=== PATIENT | male | born 1945 | race Caucasian/White ===

== ENCOUNTER 2018-06-15 10:15 | Observation (INO) ==
[2018-06-15 10:49] LABS: Basophils # (auto) 0.02 K/uL (0-0.2); Basophils % (auto) 0.2 %; Eosinophils # (auto) 0.16 K/uL (0-0.5); Eosinophils % (auto) 1.6 %; Hemoglobin 15.2 g/dL (14.0-18.0); Immature Granulocytes # (auto) 0.06 K/uL (0.00-0.02); Immature Granulocytes % (auto) 0.6 %; Lymphocytes # (auto) 1.26 K/uL (1.2-3.4); Lymphocytes % (auto) 12.3 %; Mean Corpuscular Hgb Conc 33.8 g/dL (32-36); Mean Corpuscular Volume 93.9 fL (80-100); Mean Platelet Volume 10.3 fL (7.4-10.4); Monocytes # (auto) 0.85 K/uL (0.11-0.59); Monocytes % (auto) 8.3 %; Neutrophils # (auto) 7.91 K/uL (1.4-6.5); Platelet Count 196 K/uL (130-400); RDW Standard Deviation 51.8 fL (36.4-46.3); Red Blood Count 4.79 M/uL (4.7-6.1); White Blood Count 10.26 K/uL (4.8-10.8)
[2018-06-15 10:56] LABS: Alanine Aminotransferase 22 U/L (12-78); Albumin Level 3.7 gm/dl (3.4-5.0); Aspartate Aminotransferase 14 U/L (15-37); BUN Creatinine Ratio 15.6 (10-20); Blood Urea Nitrogen 16 mg/dl (7-18); Calcium 8.9 mg/dl (8.5-10.1); Carbon Dioxide 30 mmol/L (21-32); Chloride 103 mmol/L (98-107); Creatinine Clr Calc Pharmacy 81.4 ml/min; Est GFR (African American) 87.4; Est GFR (Non-African American) 75.4; Glucose 91 mg/dl (70-99); Potassium 3.8 mmol/L (3.5-5.1); Sodium 140 mmol/L (136-145)
[2018-06-15 11:01] LABS: Alkaline Phosphatase 90 U/L (45-117); Bilirubin,Total 0.9 mg/dl (0.2-1); Globulin 3.8 gm/dl (2.5-4.0); Total Protein 7.5 gm/dl (6.4-8.2); Troponin I < 0.015 ng/ml (0-0.045)
--- NOTE | 2018-06-15 12:07 | XRay Report ---
SINGLE VIEW CHEST CLINICAL HISTORY: Atypical chest pain. FINDINGS: An AP, portable, upright chest radiograph is compared to study dated 06/08/2012. The examinat ion is degraded by portable technique and patient rotation. The heart is top normal for projection, noting atherosclerotic calcification of the thoracic aorta. There is pulmonary vascular congestion. B ibasilar airspace opacities likely represent atelectasis. Trace pleural effusions are suspected. A hi atal hernia is noted. No pneumothorax is seen. The skeletal structures are osteopenic. The bony thora x is grossly intact. Degenerative change is noted throughout the thoracic spine. IMPRESSION: 1. There is evidence of mild congestive failure. 2. Trace pleural effusions are suspected. 3. Bibasilar airspace opacities likely represent atelectasis. Clinical correlation will be required. Electronically signed by: Salvador Whittaker M.D. 06/15/2018 12:05 PM
--- NOTE | 2018-06-15 12:18 | History & Physical Report ---
Date of Service June 15, 2018 Assessment & Plan (1) RBBB: (2) Chest pain, precordial: - Admit to tele for observation for r/o - Trend cardiac biomarkers, initial set was negative - EKG reviewed as above with new RBBB, repeat ekg with - Check 2 D echo - If negative enzymes can consider a stress test tomorrow morning. - PT/OT consulted (3) HLD (hyperlipidemia): -Taking pravastatin Q48H, will be due to take this tonight - checking lipid panel with [facility]. Await results to determine if needs to daily dosing of statin needed. (4) Obesity (BMI 30.0-34.9): - Diet and exercise to be encouraged. Pt reports no routine exercise regimen. (5) Hiatal hernia: - Hx of such, previously was on protonix for this but hasn't taken for over 1 year. Chest pain could be partially GI related, consider GI cocktail. (6) History of tobacco use: - Remote hx of such (7) Prostate cancer: - Stable (8) DVT prophylaxis: Lovenox subq History of Present Illness Chief Complaint: Chest pain Primary Care Provider: Shiva He MD This is a 72 yo M with PMHx of HLD, thoracic back pain and neuropathy, seasonal allergies, remote smoking history who presents with acute onset of chest pain. Patient notes that a sharp stabbing substernal chest pain awoke him at 3 AM last night. He reports that there was no associated shortness of breath, lightheadedness, dizziness, palpitations. He routinely has referred thoracic back pain around T6 which she has followed with pain management as an outpat ient, and states that the chest pain seemed to go back to this location however due to its abrupt nature, sought out care from PCP, Dr. He, who sent the patient to the ER for further evaluation. Patient has never experienced chest pain like this before. He was able to perform perform normal ADLs yesterday. Patient denies any physical activity which may have exacerbated a musculoskeletal strain. He does not routinely exercise. The patient is able to climb a flight of stairs without any exertional dyspnea or angina. EKG shows new RBBB. Troponin is negative, VSS. CXR is negative. Allergies Allergy/AdvReac Type Severity Reaction Status Date / Time No Known Allergies Allergy Unknown Verified 06/15/18 11:35 Home Medications Home Medications Medication Instructions Recorded Confirmed Type albuterol sulfate 2 puff INHALATION Q4H PRN 06/15/18 06/15/18 History aspirin [Aspirin Low Dose] 81 mg PO Q48H 06/15/18 06/15/18 History cholecalciferol (vitamin D3) 1,000 unit PO DAILY 06/15/18 06/15/18 History gabapentin 400 mg PO TID 06/15/18 06/15/18 History loratadine 10 mg PO DAILY 06/15/18 06/15/18 History naproxen sodium 220 mg PO Q8H PRN 06/15/18 06/15/18 History pravastatin 10 mg PO Q48H 06/15/18 06/15/18 History Past Med/Surg History Medical History RBBB Prostate cancer History of tobacco use Hiatal hernia Obesity (BMI 30.0-34.9) HLD (hyperlipidemia) Chest pain, precordial (Acute) High cholesterol Surgical History S/P appendectomy Social History Preferred Language: [place] Communication Ability: Effective 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 Abdomen: No pain, nausea, vomiting, diarrhea or constipation Musculoskeletal: No joint pain, calf pain, swelling Neurologic: No weakness, numbness/tingling, or balance problems Psychiatric: No anxiety or depression Skin: No rash or itch Physical Exam Vital Signs (Past 24 Hours): Last Vital Signs Temp 36.5 C 06/15/18 10:21 Pulse 57 L 06/15/18 12:07 Resp 18 06/15/18 12:07 BP 131/75 06/15/18 12:07 Pulse Ox 97 06/15/18 12:07 Physical Exam: General: awake, alert, no apparent distress, + obese Head: Normocephalic, atraumatic ENT: PERRL, EOMI, no pharyngeal exudate, mucous membranes moist Chest: Nontender to palpation, clear to auscultation, on room air, no adventitious breath sounds Cardiac: Regular rhythm HR in mid 50s, few PVCs on exam, soft murmur, no JVD, normal peripheral pulses, good capillary refill Abdominal: NABS x 4 quadrants, soft, mildly distended, nontender to palpation, no rebound, guarding or tenderness Extremities: Normal inspection, no peripheral edema or erythema, calfs nontender to palpation Psych: Normal mood and affect Neuro: AAO x 3, strength intact bilaterally and related 5/5, no motor deficits, speech is clear, no peripheral sensory deficits Constitutional: WD/WN, vitals as above Eyes: normal visual wolf by confrontation and + anicteric sclerae Neck: normal visual inspection and trachea midline Respiratory: normal respiratory effort, lungs clear to auscultation Cardiovascular: Rate/Rhythm: regular rate and regular rhythm Gastrointestinal (Abdomen): Inspection/Auscultation: abdomen not distended Percussion/Palpation: abdomen soft; abdomen nontender Musculoskeletal: Head/Neck/Chest: normocephalic, head atraumatic and + abnormal palpation of chest wall (pain is reproducible on the R, just lateral to the sternum c/w area of pain) Neg for peripheral LE edema, + pedal pulses Skin: no rashes, warm and dry Neurologic: awake; not confused Speech / Cognition: normal speech Psychiatric: A+Ox3, euthymic affect Lymphatic: Exam as done by Sidra Larson DO Results & Data Diagnostic Findings SINGLE VIEW CHEST CLINICAL HISTORY: Atypical chest pain. FINDINGS: An AP, portable, upright chest radiograph is compared to study dated 06/08/2012. The examination is degraded by portable technique and patient rotation. The heart is top normal for projection, noting atherosclerotic calcification of the thoracic aorta. There is pulmonary vascular congestion. Bibasilar airspace opacities likely represent atelectasis. Trace pleural effusions are suspected. A hiatal hernia is noted. No pneumothorax is seen. The skeletal structures are osteopenic. The bony thorax is grossly intact. Degenerative change is noted throughout the thoracic spine. IMPRESSION: 1. There is evidence of mild congestive failure. 2. Trace pleural effusions are suspected. 3. Bibasilar airspace opacities likely represent atelectasis. Clinical correlation will be required. ECG Additional Comments: 15-JUN-2018 10:19:46 [facility] Normal sinus rhythm Right bundle branch block Left anterior fascicular block Bifascicular block Abnormal ECG When compared with ECG of 05-JUL-2008 13:23, (RBBB and left anterior fascicular block) is now Present Vent. rate 63 BPM IL interval 136 ms QRS duration 138 ms QT/QTc 446/456 ms P-R-T axes 68 -52 15 Supervising Physician Co-Signing Physician Notes Pt seen and examined by me. Denies recurrence of chest pain or SOB. Tolerating PO without issue. Agree with HPI/ROS as noted by PA See above for my exam in PE section Agree with plan as outlined above Chest pain, reproducible to palpation Pt also notes h/o hiatal hernia ECHO, trops New RBBB noted on EKG as part of workup
[2018-06-15] MEDS ORDERED: ACETAMINOPHEN 325 MG TAB PO PRN (13:43)
[2018-06-15] MEDS ORDERED: ALBUTEROL HFA 8 GM INHALER INH PRN (13:43)
[2018-06-15] MEDS ORDERED: ONDANSETRON INJ 2 MG/ML 2 ML VIAL IV PRN (13:43)
[2018-06-15] MEDS: GABAPENTIN 400 MG CAP PO SCH ×2 (15:59→21:20)
--- NOTE | 2018-06-15 16:15 | Emergency Department Note ---
Entered by Jeffery Anguiano acting as a scribe for Geovanny Eng DO History of Present Illness General Chief complaint: Chest Pain Stated complaint: chest pain Time Seen by Provider: 06/15/18 10:34 Source: patient History of Present Illness Provider complaint: chest pain Onset (ago): day(s) (today around 0300) Location: chest (middle) Radiation: non-radiation Pain Consistency: + now resolved Maximum Pain Intensity: 10 Current Pain Intensity: 2 Quality: + sharp and + other (feels like there is a "ball" in his chest) Relieved By: + medication (nitroglycerin and baby aspirin) Associated symptoms: + denies other symptoms (jaw pain, arm pain, urinary symptoms, abdominal pain); no diaphoresis, no nausea/vomiting and no shortness of breath Treatments prior to arrival: aspirin and other (nitroglycerin) The patient is a 72 year old male who presents to the Emergency Room with complaints of chest pain that woke the patient up around 0300 this morning. The patient states his pain is sharp in the middle of his chest and rates it as a 2/10 in severity. He also states that it feels as though there is a "ball" in hi s chest. He denies that the pain radiated anywhere and denies any arm pain, jaw pain, or shortness of breath. The patient reports that he was given nitroglycerin as well as 4 baby aspirin which alleviated his pain. He denies ever experiencing pain like this before. The patient also denies any abdominal pain, nausea, vomiting, urinary symptoms or diaphoresis. He denies any medical history of heart attacks, diabetes, or hypertension, but does admit to having high cholesterol. The patient admits to being a former smoker of 15 years and states that he quit about 4 years ago. Home Medications Home Medications Medication Instructions Recorded Confirmed Type albuterol sulfate 2 puff INHALATION Q4H PRN 06/15/18 06/15/18 History aspirin [Aspirin Low Dose] 81 mg PO Q48H 06/15/18 06/15/18 History cholecalciferol (vitamin D3) 1,000 unit PO DAILY 06/15/18 06/15/18 History gabapentin 400 mg PO TID 06/15/18 06/15/18 History loratadine 10 mg PO DAILY 06/15/18 06/15/18 History naproxen sodium 220 mg PO Q8H PRN 06/15/18 06/15/18 History pravastatin 10 mg PO Q48H 06/15/18 06/15/18 History Allergies Allergy/AdvReac Type Severity Reaction Status Date / Time No Known Allergies Allergy Unknown Verified 06/15/18 11:35 Past Med/Surg History Medical History RBBB Prostate cancer History of tobacco use Hiatal hernia Obesity (BMI 30.0-34.9) HLD (hyperlipidemia) Chest pain, precordial (Acute) High cholesterol Surgical History S/P appendectomy Social History Preferred Language: Malian Communication Ability: Effective 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 and A total of 10 systems reviewed and were otherwise negative Physical Exam Vital Signs Vital Signs - 24 hr 06/15/18 10:21 06/15/18 10:27 06/15/18 12:07 Temperature 36.5 C Temperature Source Oral Sepsis Recent Fever Within 48 Hours No Sepsis New/Unexplained Change in Mental Status No Sepsis Action Taken by Nursing No Action Required Pulse Rate 65 Pulse Rate [Apical] 57 L Pulse Rate [Left Finger] Respiratory Rate 20 18 Respiratory Effort / Characteristics Non-Labored Spontaneous Respiratory Depth Normal Respiratory Pattern Regular Blood Pressure 157/91 H Blood Pressure [Left Arm] Blood Pressure [Right Arm] 131/75 Blood Pressure Mean 113 Blood Pressure Mean [Left Arm] Blood Pressure Mean [Right Arm] 93 Blood Pressure Position [Left Arm] Blood Pressure Position [Right Arm] Sitting Pulse Oximetry 96 96 97 Oxygen Delivery Method Room Air Room Air Room Air 06/15/18 13:02 06/15/18 13:43 06/15/18 15:49 Temperature 36.6 C 36.6 C Temperature Source Oral Oral Sepsis Recent Fever Within 48 Hours Sepsis New/Unexplained Change in Mental Status Sepsis Action Taken by Nursing Pulse Rate 55 L Pulse Rate [Apical] Pulse Rate [Left Finger] 57 L 62 Respiratory Rate 18 16 20 Respiratory Effort / Characteristics Non-Labored Spontaneous Respiratory Depth Normal Respiratory Pattern Regular Blood Pressure 134/78 Blood Pressure [Left Arm] 169/83 H 147/54 H Blood Pressure [Right Arm] Blood Pressure Mean Blood Pressure Mean [Left Arm] 111 85 Blood Pressure Mean [Right Arm] Blood Pressure Position [Left Arm] Sitting Lying Blood Pressure Position [Right Arm] Pulse Oximetry 98 95 97 Oxygen Delivery Method Room Air Room Air Room Air GENERAL: Sleeping in bed, alert, well appearing, well nourished, no distress, non-toxic EYE EXAM: normal conjunctiva. PERRL and EOM's grossly intact. OROPHARYNX: no exudate, no erythema, lips, buccal mucosa, and tongue normal and mucous membranes are moist NECK: supple, no nuchal rigidity, no adenopathy, non-tender LUNGS: Clear to auscultation. Normal chest wall mechanics HEART: no murmurs, S1 normal and S2 normal ABDOMEN: abdomen soft, non-tender, normo-active bowel, sounds, no masses, no rebound or guarding. BACK: Back is symmetrical on inspection and there is no deformity, no midline tenderness, no CVA tenderness. SKIN: no rashes and no bruising UPPER EXTREMITIES: Upper extremities are grossly normal. Upper radial pulses equal bilaterally. LOWER EXTREMITIES: No pitting edema. Calves equal bilaterally. NEURO EXAM: Normal sensorium, cranial nerves II-XII grossly intact, normal speech, no gross weakness of arms, no gross weakness of legs. Course ED COURSE: Vital signs were reviewed and showed the patient was hypertensive. The patients medical record was reviewed The above diagnostic studies were performed and reviewed. ED treatments and interventions as stated above. 1039: The patient was evaluated in room C12B. A complete history and physical examination was performed. 1212: I reviewed the patient's case with Dr. Larson, [facility]. She will evaluate the patient for further management. 1216: Upon reevaluation, the patient is resting comfortably. I discussed my findings with the patient and he understands and agrees with the treatment plan. Based on the patients age, coexisting illnesses, exam and lab findings the decision to treat as an inpatient was made. The patient remained stable while under my care. The patient will be evaluated for further management. Consultations Consultation #1: Dr. Larson [facility] Time: 12:12 Administered Medications Gabapentin (Neurontin) 400 mg PO TID JOVANNA Stop: 07/15/18 13:59 Last Admin: 06/15/18 15:59 Dose: 400 mg Documented by: [id number] Medical Decision Making Differential Diagnosis Differential diagnosis: Etiologies such as cardiac ischemia, aortic dissection, pulmonary embolism, pneumonia, pneumothorax, musculoskeletal, infections, pericarditis, myocarditis, esophageal rupture, gastrointestinal, as well as others were entertained. Medical Records Attestation: I reviewed the patient's medical records. Home Medications Current Medication List: was personally reviewed by me Laboratory Data Attestation: I reviewed the patient's lab results. Result diagrams: 06/15/18 10:25 06/15/18 10:25 Lab Results 06/15/18 06/15/18 Range/Units 10:25 10:25 WBC 10.26 (4.8-10.8) K/uL RBC 4.79 (4.7-6.1) M/uL Hgb 15.2 (14.0-18.0) g/dL Hct 45.0 (42-52) % MCV 93.9 (80-100) fL MCH 31.7 (25-34) pg MCHC 33.8 (32-36) g/dL RDW Std Deviation 51.8 H (36.4-46.3) fL RDW Coeff of Swetha 15.0 H (11.5-14.5) % Plt Count 196 (130-400) K/uL MPV 10.3 (7.4-10.4) fL Immature Gran % (Auto) 0.6 % Neut % (Auto) 77.0 % Lymph % (Auto) 12.3 % Marion % (Auto) 8.3 % Eos % (Auto) 1.6 % Baso % (Auto) 0.2 % Immature Gran # (Auto) 0.06 H (0.00-0.02) K/uL Neut # (Auto) 7.91 H (1.4-6.5) K/uL Lymph # (Auto) 1.26 (1.2-3.4) K/uL Marion # (Auto) 0.85 H (0.11-0.59) K/uL Eos # (Auto) 0.16 (0-0.5) K/uL Baso # (Auto) 0.02 (0-0.2) K/uL Sodium 140 (136-145) mmol/L Potassium 3.8 (3.5-5.1) mmol/L Chloride 103 (98-107) mmol/L Carbon Dioxide 30 (21-32) mmol/L Anion Gap 7.0 (3-11) BUN 16 (7-18) mg/dl Creatinine 1.00 (0.6-1.4) mg/dl Est Cr Clr Drug Dosing 81.4 ml/min Est GFR ( Amer) 87.4 Est GFR (Non-Af Amer) 75.4 BUN/Creatinine Ratio 15.6 (10-20) Glucose 91 (70-99) mg/dl Calcium 8.9 (8.5-10.1) mg/dl Total Bilirubin 0.9 (0.2-1) mg/dl AST 14 L (15-37) U/L ALT 22 (12-78) U/L Alkaline Phosphatase 90 (45-117) U/L Troponin I < 0.015 (0-0.045) ng/ml Total Protein 7.5 (6.4-8.2) gm/dl Albumin 3.7 (3.4-5.0) gm/dl Globulin 3.8 (2.5-4.0) gm/dl Albumin/Globulin Ratio 1.0 (0.9-2) Lipase 237 (73-393) U/L Imaging Data Radiologist's Impression: Radiology results as stated below per my review and the radiologist's interpretation: SINGLE VIEW CHEST CLINICAL HISTORY: Atypical chest pain. FINDINGS: An AP, portable, upright chest radiograph is compared to study dated 06/08/2012. The examination is degraded by portable technique and patient rotation. The heart is top normal for projection, noting atherosclerotic calcification of the thoracic aorta. There is pulmonary vascular congestion. Bibasilar airspace opacities likely represent atelectasis. Trace pleural effu sions are suspected. A hiatal hernia is noted. No pneumothorax is seen. The skeletal structures are osteopenic. The bony thorax is grossly intact. Degenerative change is noted throughout the thoracic spine. IMPRESSION: 1. There is evidence of mild congestive failure. 2. Trace pleural effusions are suspected. 3. Bibasilar airspace opacities likely represent atelectasis. Clinical correlation will be required. Electronically signed by: Salvador Whittaker M.D. 06/15/2018 12:05 PM ECG Data Attestation: I personally reviewed and interpreted this ECG as follows: Indication: chest pain Rate (beats per minute): 63 Rhythm: sinus rhythm Findings: + other (TWI in v1), + RBBB and + left axis deviation Comparison ECG Date: from (06/25/08) Change: the following changes noted (RBBB is new) Blood Pressure Blood Pressure Findings: Elevated blood pressure Blood Pressure Disposition: elevated BP felt to be situational MDM Narrative Patient is a 72-year-old male who presents the ER for chest pain which is located in the midsternal region. Chest pain started at 3 AM. It resolved with nitro and aspirin given in the ambulance. Patient has no other complaints at this time. Labs were obtained and showed no significant leukocytosis or anemia. Labs show no significant leukocytosis or anemia. BMP along with LFTs bilirubin and lipase was unremarkable. Troponin was normal. EKG showed no acute ischemia. He was updated bedside. Chest x-ray unremarkable. Previously received aspirin nitro. With his age and risk factors I discussed case with the hospitalist for observation. Impression & Plan Chest pain, precordial Discharge Plan Visit Data *Final* Discharge Date/Time: 06/15/18 13:02 Chief Complaint: Chest Pain Stated Complaint: chest pain ED Provider: Geovanny Eng Discharge Problem: Chest pain, precordial Patient Disposition: Admitted As Inpatient Discharge Instructions Interventions: ED Discharge Assessment Last Done: 06/15/18 13:02 The scribe's documentation has been prepared under my direction and personally reviewed by me in its entirety. I confirm that the note above accurately reflects all work, treatment, procedures, and medical decision making performed by me.
[2018-06-15] MEDS ORDERED: ASPIRIN 81 MG ECTAB PO SCH (21:00)
[2018-06-15] MEDS ORDERED: PRAVASTATIN SOD 10 MG TAB PO SCH (21:00)
[2018-06-16 02:19] LABS: Alanine Aminotransferase 19 U/L (12-78); Albumin Level 3.2 gm/dl (3.4-5.0); Aspartate Aminotransferase 9 U/L (15-37); BUN Creatinine Ratio 18.3 (10-20); Blood Urea Nitrogen 17 mg/dl (7-18); Calcium 8.2 mg/dl (8.5-10.1); Carbon Dioxide 28 mmol/L (21-32); Chloride 104 mmol/L (98-107); Creatinine Clr Calc Pharmacy 85.7 ml/min; Est GFR (Non-African American) 80.2; Glucose 105 mg/dl (70-99); Magnesium 2.1 mg/dl (1.8-2.4); Potassium 3.9 mmol/L (3.5-5.1); Sodium 138 mmol/L (136-145)
[2018-06-16 02:22] LABS: Albumin Globulin Ratio 0.9 (0.9-2); Alkaline Phosphatase 90 U/L (45-117); Bilirubin,Total 0.9 mg/dl (0.2-1); Chol HDL Ratio 4; Cholesterol 200 mg/dl (0-200); Globulin 3.7 gm/dl (2.5-4.0); HDL Cholesterol 54 mg/dl; Total Protein 6.9 gm/dl (6.4-8.2); Triglycerides 406 mg/dl (0-150); Troponin I < 0.015 ng/ml (0-0.045)
[2018-06-16 06:42] LABS: Prothrombin Time 10.6 Seconds (9.0-12.0)
[2018-06-16 06:53] LABS: Hemoglobin 15.2 g/dL (14.0-18.0); Mean Corpuscular Hgb Conc 33.8 g/dL (32-36); Mean Corpuscular Volume 93.6 fL (80-100); Mean Platelet Volume 10.6 fL (7.4-10.4); Platelet Count 179 K/uL (130-400); RDW Coefficient of Variation 14.9 % (11.5-14.5); RDW Standard Deviation 51.1 fL (36.4-46.3); Red Blood Count 4.81 M/uL (4.7-6.1); White Blood Count 6.84 K/uL (4.8-10.8)
[2018-06-16 07:28] LABS: Estimated Average Glucose 126 mg/dl
[2018-06-16] MEDS: GABAPENTIN 400 MG CAP PO SCH ×2 (08:36→13:42)
[2018-06-16] MEDS ORDERED: ENOXAPARIN INJ 40 MG/0.4 ML SYR SQ SCH (09:00)
[2018-06-16] MEDS ORDERED: CHOLECALCIFEROL 1,000 UNITS TAB PO SCH (09:00)
[2018-06-16] MEDS ORDERED: PERFLUTREN LIPID MICROSPHERE (DEFINITY) IV ONE (10:58)
--- NOTE | 2018-06-16 11:30 | Discharge Summary ---
Date of Service June 16, 2018 Admission HPI Per Admitting Provider This is a 72 yo M with PMHx of HLD, thoracic back pain and neuropathy, seasonal allergies, remote smoking history who presents with acute onset of chest pain. Patient notes that a sharp stabbing substernal chest pain awoke him at 3 AM last night. He reports that there was no associated shortness of breath, lightheadedness, dizziness, palpitations. He routinely has referred thoracic back pain around T6 which she has followed with pain management as an outpatient, and states that the chest pain seemed to go back to this location however due to its abrupt nature, sought out care from PCP, Dr. He, who sent the patient to the ER for further evaluation. Patient has never experienced chest pain like this before. He was able to perform perform normal ADLs yesterday. Patient denies any physical activity which may have exacerbated a musculoskeletal strain. He does not routinely exercise. The patient is able to climb a flight of stairs without any exertional dyspnea or angina. EKG shows new RBBB. Troponin is negative, VSS. CXR is negative. Admission Exam Per Admitting Provider Physical Exam: General: awake, alert, no apparent distress, + obese Head: Normocephalic, atraumatic ENT: PERRL, EOMI, no pharyngeal exudate, mucous membranes moist Chest: Nontender to palpation, clear to auscultation, on room air, no adventitio us breath sounds Cardiac: Regular rhythm HR in mid 50s, few PVCs on exam, soft murmur, no JVD, normal peripheral pulses, good capillary refill Abdominal: NABS x 4 quadrants, soft, mildly distended, nontender to palpation, no rebound, guarding or tenderness Extremities: Normal inspection, no peripheral edema or erythema, calfs nontender to palpation Psych: Normal mood and affect Neuro: AAO x 3, strength intact bilaterally and related 5/5, no motor deficits, speech is clear, no peripheral sensory deficits Principal Diagnosis Chest Pain Discharge Exam Constitutional WD/WN, vitals as above Eyes PERRL, conjunctivae normal, anicteric sclerae ENMT external ear and nose normal, oropharynx normal Neck trachea midline, no thyromegaly Respiratory normal respiratory effort, lungs clear to auscultation Cardiovascular RRR, no murmur, no edema Gastrointestinal (Abdomen) normal bowel sounds, soft, nontender, no hepatosplenomegaly Musculoskeletal no cyanosis or clubbing, extremities motor strength 5/5 Skin no rashes, warm and dry Psychiatric A+Ox3, euthymic affect Discharge Data Allergies Allergy/AdvReac Type Severity Reaction Status Date / Time No Known Allergies Allergy Unknown Verified 06/15/18 11:35 Consultations 06/15/18 12:15 ED Decision to Admit Stat 06/15/18 13:43 Consult Case Management - Discharge Planning Routine Echocardiogram interpretation summary Normal LV size and wall thickness LVEF 60-65%, no regional wall motion abnormalities Normal RV size and function Mild mitral regurgitation No previous studies for comparison [place], [place] [phone] XRay Report Patient: ROSSY HIGGINS Date: 06/15/18 MR#: [id number]: [id number] Acct ID:[id number]: [address] Date: 1945[facility] Zip: [place] [address] Age: 72Location: ED Sex: M Room/Bed: Att Phy: Diagnosis: chest pain Joanne Phy: Shiva He M.D.Service Date: 06/15/18 Fam Phy: Interpreting Phy: Salvador Whittaker MD Admit Phy: Ordering Phy: Geovanny Eng, cc: ~ SINGLE VIEW CHEST CLINICAL HISTORY: Atypical chest pain. FINDINGS: An AP, portable, upright chest radiograph is compared to study dated 06/08/2012. The examination is degraded by portable technique and patient rotation. The heart is top normal for projection, noting atherosclerotic calcification of the thoracic aorta. There is pulmonary vascular congestion. Bibasilar airspace opacities likely represent atelectasis. Trace pleural effusions are suspected. A hiatal hernia is noted. No pneumothorax is seen. The skeletal structures are osteopenic. The bony thorax is grossly intact. Degenerative change is noted throughout the thoracic spine. IMPRESSION: 1. There is evidence of mild congestive failure. 2. Trace pleural effusions are suspected. 3. Bibasilar airspace opacities likely represent atelectasis. Clinical correlation will be required. Electronically signed by: Salvador Whittaker M.D. 06/15/2018 12:05 PM Dictated: 06/15/18 1204 Transcribed: 06/15/18 1204 Hospital Course (1) Chest pain, precordial: 72-year-old male with a past medical history of hyperlipidemia, impaired glucose tolerance, remote history of tobacco use and family history of NM in his father and diabetes in his mother presents with chest pain. The patient stated that the chest pain began 3 AM on 06/15/2018. He was seen by his PCP in the morning of 06/15/2018 at 8 AM and was subsequently transferred to [facility]. The pain was constant throughout the morning. He states that the chest pain was relieved following aspirin nitro in route to the hospital. Chest pain The patient was evaluated on telemetry bed without any events on monitor. The patient was found to have a right bundle branch block on EKG. He had negative cardiac biomarkerstroponins were negative x3. We did have an echocardiogram which was normal. See interpretation above. Considering the patient's risk factors, further ischemic workup was initiated. The patient went for a exercise stress echo which was negative for ischemia. Consider non-cardiac origins of chest pain. Hypertriglyceridemia Triglycerides were found to be 406, the patient is currently on 10 mg of pravastatin, would recommend increasing the dose or consider adjunctive therapy Total Time Total Time Spent Total Time Spent (In Minutes): Greater than 30 minutes Total Time Includes: Examination of the Patient, Discharge Planning, Medication Reconciliation and Communication With Other Providers Discharge Plan Discharge Items Patient Disposition: Home - Self-Care Reason For Visit: chest pain Discharge Diagnosis: Chest Pain of Unknown Origin Condition: Good Discharge Goals: Increase independence and Prevent disease Activity: Resume your previous activity Non-emergency contact: Primary Care Provider Call non-emergency contact if: you have any medication questions Follow-up/Referrals: Shiva He MD [Primary Care Provider] - 06/18/18 10:50 am (Please, follow up at Dr. He' office with his associate, Dr. Kimberly Ha, on June 18 at 10:50 am. *If you need to change this appointment, call their office at [phone].) Diet: Heart Healthy Addtl Provider Instructions: You were admitted to the hospital for a concern about chest pain coming from a heart attack. Blood work was negative for any cardiac enzymes that would indicate a heart attack. Your resting and stress echocardiogram also did not show any abnormalities. An abnormality in the echocardiogram could be evidence of cardiac disease. Your EKG did show what is called a Right Bundle Branch Block which was a change in your EKG when compared from 2009. A Right Bundle Branch Block occurs in approximately 0.2 to 0.8 percent of the general population and is more prevalent with age. It is unclear when this Right Bundle Branch block occurred. A asymptomatic Right bundle branch block does not require treatment other than observation for further cardiac symptoms. A follow up appointment with Dr. Kimberly Ha has been made for you on 06/18/[address] He precepting, please keep this appointment. Prescriptions: Continued gabapentin 400 mg Capsule 400 mg PO TID RF: 0 aspirin [Aspirin Low Dose] 81 mg Tablet,Delayed Release (Dr/Ec) 81 mg PO Q48H RF: 0 pravastatin 10 mg Tablet 10 mg PO Q48H RF: 0 naproxen sodium 220 mg Tablet 220 mg PO Q8H PRN (Reason: ARTHRITIS PAIN) RF: 0 albuterol sulfate 90 mcg/actuation Hfa Aerosol Inhaler 2 puff INHALATION Q4H PRN (Reason: Wheezing) RF: 0 loratadine 10 mg Tablet 10 mg PO DAILY RF: 0 cholecalciferol (vitamin D3) 1,000 unit Capsule 1,000 unit PO DAILY RF: 0 Stand-Alone Forms: Call Back Authorization, [facility]/Other Patient Handouts: Prediabetes, Diabetes Meal Planning, Block Right Bundle Branch Discharge Orders: Discharge Order (Routine); Ordered 06/16/18 Ordered By: Erwin Fowler Admission Data Admit Date/Time: 06/15/18 12:27 Attending Provider: Saundra Doran Admit Provider: Sidra Larson Primary Care Provider: Shiva He Other Providers: Sidra Larson Service: Telemetry Medical Other Interventions: Discharge Summary Assessment (RN) Last Done: 06/16/18 13:25 DC Date/Time DO NOT enter until pt leaves facility: 06/16/18 16:57 Supervising Physician Co-Signing Physician Notes Resident Physician Supervision Note: I independently interviewed and examined the patient and verified the hubbard history and physical, reviewed labs and image studies, discussed the case with the resident Dr. Doss and agree with the findings and care plan. Resident Activity Tracking Resident Involvement: Resident Care Provided Care Provided: Adult [facility] Medicine
== END 2018-06-16 16:57 | disposition home or self-care (01) ==
LOC: ED 10:15 → 2N 10:15 → SUATTDRO 12:27 → 2N 13:02

== ENCOUNTER 2019-02-25 05:00 | Inpatient (IN) ==
--- NOTE | 2019-01-29 13:47 | PAT Medication Instructions ---
Medication Instructions Date of Service January 29, 2019 Home Medications albuterol sulfate 2 puff INHALATION Q4H PRN aspirin [Aspirin Low Dose] 81 mg PO Q48H cholecalciferol (vitamin D3) 1,000 unit PO QPM gabapentin 400 mg PO TID loratadine 10 mg PO QPM naproxen sodium 220 mg PO Q8H PRN pravastatin 10 mg PO Q48H diclofenac sodium 2 g TOPICAL UD PRN nitroglycerin 0.4 mg SUBLINGUAL UD PRN Continue as directed nitroglycerin 0.4 mg SUBLINGUAL UD PRN (if needed) pravastatin 10 mg PO Q48H ASK your surgeon for instructions naproxen sodium 220 mg PO Q8H PRN diclofenac sodium 2 g TOPICAL UD PRN ASK your prescriber and surgeon aspirin [Aspirin Low Dose] 81 mg PO Q48H STOP taking 24 hours before surgery diclofenac sodium 2 g TOPICAL UD PRN Take morning of surgery With a small sip of water, OTHERWISE NOTHING TO EAT OR DRINK AFTER MIDNIGHT: albuterol sulfate 2 puff INHALATION Q4H PRN (use if needed; please bring with you to hospital day of surgery if possible) gabapentin 400 mg PO TID Take evening before surgery albuterol sulfate 2 puff INHALATION Q4H PRN (if needed) cholecalciferol (vitamin D3) 1,000 unit PO QPM gabapentin 400 mg PO TID loratadine 10 mg PO QPM Other Notes If you have any questions please call us at [phone] or [phone] or [phone] or [phone]
--- NOTE | 2019-02-02 09:01 | Anesthesiology Consultation ---
Date of Service February 02, 2019 Assessment & Plan (1) Encounter for pre-operative examination: - Awaiting review preop testing (labs, CXR). - Awaiting surgeon-ordered PCP preop evaluation. Chart Review Chart Review: Patient seen in Pre Admission Testing Teaching & Discussion Pre-Anesthesia Teaching/Discussion Notes: Instructed NPO after midnight before surgery,except medications with 15 cc of water. Medication instructions provided according to the PAT guidelines. History Surgery Operation Date: 02/25/19 07:30 Proposed Procedures p Left Reverse Total Shoulder Arthroplasty - Darius Guadarrama M.D. Height/Weight Height: 5 ft 10 in Weight: 96.3 kg Allergies Allergy/AdvReac Type Severity Reaction Status Date / Time No Known Allergies Allergy Unknown Verified 01/26/19 09:49 Medications Home Medications Medication Instructions Recorded Confirmed Last Taken aspirin [Aspirin Low Dose] 81 mg PO Q48H 06/15/18 01/26/19 Unknown cholecalciferol (vitamin D3) 1,000 unit PO QPM 06/15/18 01/26/19 Unknown gabapentin 400 mg PO TID 06/15/18 01/26/19 Unknown loratadine 10 mg PO QPM 06/15/18 01/26/19 Unknown naproxen sodium 220 mg PO Q8H PRN 06/15/18 01/26/19 Unknown pravastatin 10 mg PO Q48H 06/15/18 01/26/19 Unknown diclofenac sodium 2 g TOPICAL UD PRN 01/26/19 01/26/19 Unknown nitroglycerin 0.4 mg SUBLINGUAL UD PRN 01/26/19 01/26/19 Unknown Past Medical History Medical History Hiatal hernia HLD (hyperlipidemia) Asthma no recent issues/no inhaler Bifascicular block Degenerative disc disease [place] (hard of hearing) History of kidney stones History of prostate cancer s/p prostatectomy Obesity Osteoarthritis Exercise / Class Metabolic Activity II 4-5 Yardwork/Stairs/Walk up hill Past Family History Family History Mother Family history of diabetes mellitus Son Esophageal cancer Past Surgical History Surgical History S/P appendectomy History of colonoscopy History of open reduction and internal fixation (ORIF) procedure LLE History of prostate biopsy History of prostatectomy History of tonsillectomy Past Anesthesia History No Hx of Anesthesia Complications and No Family Hx of Anesthesia Complications History of PONV No Hx of PONV and No Hx of Motion Sickness Social History Smoking Status: Former smoker tobacco type: cigarettes Do You Dip or Chew Tobacco: No Smoking End Date: quit 35 years ago Hx Alcohol Use: Yes alcohol intake frequency: holidays/special occasions only Hx Substance Use: No substance use type: does not use Review of Systems Patient denies chest pain, shortness of breath, dyspnea on exertion, reflux, cough, wheezing, palpitations. Physical Exam Vital Signs VITALS BP 120/76 P 57 TEMP 97.6 SP02 97%RA RESP 16 PHYSICAL Full neck and c-spine range of motion. Full TMJ range of motion. TMD 3.5 finger breaths Mallampati Score 3 Dentition: missing molars, ? implants on lower front teeth Lungs: clear throughout to auscultation Cardiac: regular rate and rhythm, no murmurs noted Spine: normal Carotid arteries: negative bruit Extremities: no edema Testing Electrocardiogram Date: 06/15/18 NSR. RBBB. LAFB. *Bifascicular block* (subsequent ECHO/stress test done*) Echocardiogram Date: 06/15/18 LVEF 60-65%. No RWMA. Mild MR. Stress Test Date: 06/16/18 Type: exercise No evidence of inducible ischemia at workload achieved (submaximal at 83% MPHR). 10.10 METS.
--- NOTE | 2019-02-02 09:48 | XRay Report ---
XR chest Pre-admission PA/Lat CLINICAL HISTORY: pat preoperative evaluation COMPARISON STUDY: 06/15/2018 FINDINGS: The bones soft tissues and hemidiaphragms are normal. The cardiomediastinal silhouette is n ormal. The lungs are clear. The pulmonary vasculature is normal. IMPRESSION: Negative chest. The above report was generated using voice recognition software. It may contain grammatical, syntax or spelling errors. Electronically signed by: Erwin Ojeda M.D. 02/02/2019 9:47 AM
[2019-02-02 09:55] LABS: Basophils # (auto) 0.02 K/uL (0-0.2); Basophils % (auto) 0.4 %; Eosinophils # (auto) 0.26 K/uL (0-0.5); Eosinophils % (auto) 4.9 %; Hematocrit (blood only) 44.4 % (42-52); Hemoglobin 15.2 g/dL (14.0-18.0); Immature Granulocytes # (auto) 0.02 K/uL (0.00-0.02); Immature Granulocytes % (auto) 0.4 %; Lymphocytes # (auto) 1.01 K/uL (1.2-3.4); Mean Corpuscular Hgb Conc 34.2 g/dL (32-36); Mean Corpuscular Volume 93.5 fL (80-100); Mean Platelet Volume 10.8 fL (7.4-10.4); Monocytes # (auto) 0.42 K/uL (0.11-0.59); Monocytes % (auto) 7.9 %; Neutrophils # (auto) 3.59 K/uL (1.4-6.5); Neutrophils % (auto) 67.4 %; Platelet Count 164 K/uL (130-400); RDW Coefficient of Variation 15.4 % (11.5-14.5); RDW Standard Deviation 52.6 fL (36.4-46.3); Red Blood Count 4.75 M/uL (4.7-6.1); White Blood Count 5.32 K/uL (4.8-10.8)
[2019-02-02 10:03] LABS: Estimated Average Glucose 120 mg/dl; Hemoglobin A1C 5.8 % (4.5-5.6)
[2019-02-02 10:05] LABS: Albumin Level 3.8 gm/dl (3.4-5.0); BUN Creatinine Ratio 15.9 (10-20); Calcium 8.7 mg/dl (8.5-10.1); Creatinine Clr Calc Pharmacy 83.6 ml/min; Est GFR (African American) 94.7; Est GFR (Non-African American) 81.7; Potassium 3.9 mmol/L (3.5-5.1)
[2019-02-02 10:12] LABS: Appearance Urine Clear (Clear); Bilirubin Urine Negative (Negative); Blood Urine Negative (Negative); Color Urine Yellow; Glucose Urine UA Negative (Negative); Ketones Urine Negative (Negative); Leukocyte Esterase Urine Negative (Negative); Nitrite Urine Negative (Negative); Partial Thromboplastin Ratio 0.9; Partial Thromboplastin Time 25.4 Seconds (21.0-31.0); Protein Urine Negative (Negative); Prothrombin Time 10.3 Seconds (9.0-12.0); Urobilinogen Urine Negative (Negative); pH Urine 8.5 (4.5-7.5)
--- NOTE | 2019-02-24 17:02 | History & Physical Report ---
Date of Service February 24, 2019 Assessment & Plan (1) Rotator cuff arthropathy of left shoulder: He is developing rotator cuff tear arthropathy in his left shoulder. He obviously had a pre-existing rotator cuff tear in his shoulder, as he has near complete fatty atrophy of the supraspinatus and infraspinatus muscle bellies. I think that the injury that he had in November was the last few fibers of the rotator cuff tearing loose. I think that his persistent pain with abduction is now due to the humeral head articulating on the underside of the acromion. I again explained the process of rotator cuff tear arthropathy in detail to him today. We went through the range of treatment options, including continued shoulder injections and therapy, a shoulder arthroscopy with debridement which might give him some temporary relief of his pain, and a definitive reverse total shoulder arthroplasty. We extensively discussed the pros and cons of each approach. He elected to proceed with a reverse total shoulder arthroplasty, and I think this is reasonable. Risks, benefits, and alternatives of surgery were explained in detail. The surgical procedure, as well as postoperative recovery and rehabilitation, was also explained in detail. Risks include bleeding; infection; damage to surrounding structures such as nerves, blood vessels, and tendons that run in the area; persistent pain or stiffness; hardware failure; dislocation; brachial plexus palsy; blood clots; or need for further surgery. The patient understands all of this and wishes to proceed with surgery. Preoperative workup was completed today, and informed consent was obtained. Present on Admission?: Yes History of Present Illness Chief Complaint: Left shoulder pain Primary Care Provider: Shiva He MD Mr. Villagomez returns today for his left shoulder pain. Again, he had an injury in his left shoulder when he was lifting a gas can and felt sudden severe pain in the left shoulder. This occurred around mid November. I initially saw him for this about a month ago in early December. At that point, the pain was already improving. I gave him a subacromial steroid injection and sent him for physical therapy. The injection did help, but he still has significant pain and weakness in that left shoulder that is very bothersome to him. It is waking him up at night. This is very frustrating to him. Allergies Allergy/AdvReac Type Severity Reaction Status Date / Time No Known Allergies Allergy Unknown Verified 01/26/19 09:49 Home Medications Home Medications Medication Instructions Recorded Confirmed Type aspirin [Aspirin Low Dose] 81 mg PO Q48H 06/15/18 01/26/19 History cholecalciferol (vitamin D3) 1,000 unit PO QPM 06/15/18 01/26/19 History gabapentin 400 mg PO TID 06/15/18 01/26/19 History loratadine 10 mg PO QPM 06/15/18 01/26/19 History naproxen sodium 220 mg PO Q8H PRN 06/15/18 01/26/19 History pravastatin 10 mg PO Q48H 06/15/18 01/26/19 History diclofenac sodium 2 g TOPICAL UD PRN 01/26/19 01/26/19 History nitroglycerin 0.4 mg SUBLINGUAL UD PRN 01/26/19 01/26/19 History Past Med/Surg History Medical History (Updated 02/24/19 @ 17:01 by Darius Guadarrama M.D.) Asthma no recent issues/no inhaler Bifascicular block Degenerative disc disease Hiatal hernia History of kidney stones History of prostate cancer s/p prostatectomy HLD (hyperlipidemia) [place] (hard of hearing) Obesity Osteoarthritis Surgical History History of colonoscopy History of open reduction and internal fixation (ORIF) procedure LLE History of prostate biopsy History of prostatectomy History of tonsillectomy S/P appendectomy Family History Mother Family history of diabetes mellitus Son Esophageal cancer Social History Preferred Language: Swazi Communication Ability: Effective Rn Coronary Care Unit Required: No Beliefs That Will Affect Care: None Current Living Situation: Spouse Feels Safe at Home: Yes Smoking Status: Former smoker Tobacco Type: cigarettes ; Second Hand Exposure: No ; Hx Alcohol Use: Yes Hx Substance Use: No Physical Exam Physical Exam: General: The patient appears well developed and well nourished. Awake, alert, and oriented x 3. Appropriate mood and affect. Normal gait and station. Normal coordination and balance. Skin: The skin over the left shoulder shows no lesion or erythema. Inspection/Palpation: Visual inspection reveals no gross deformity of the left shoulder. There is no palpable focal swelling. There is no significant focal tenderness to palpation. Range of Motion: He has surprisingly good active range of motion in that left shoulder. He can still achieve about 120 degrees of active abduction bilaterally. Symmetric external and internal rotation. Stability: There is no gross ligamentous laxity. Strength: Supraspinatous and infraspinatous strength is slightly limited due to pain, but surprisingly fairly good. Subscapularis strength is well maintained. Sensation: The patient reports no numbness in the hand. Vascular: Hand is warm and well perfused. No diffuse edema. Results & Data Diagnostic Findings MRI of the left shoulder was again reviewed. It shows a massive, full- thickness, retracted rotator cuff tear involving the entirety of the supraspinatus and infraspinatus tendons obtained yesterday. He has near complete fatty atrophy of the supraspinatus and infraspinatus muscle bellies. The tear also appears to involve the most superior aspect of the subscapularis. Degenerative tearing of the labrum and glenohumeral joint arthritis is noted.
[2019-02-25] MEDS ORDERED: CeleBREX 200 MG CAP PO SCH (06:00)
[2019-02-25] MEDS ORDERED: TRANEXAMIC ACID 1,000 MG **IV Pre-op IV SCH (06:00)
[2019-02-25] MEDS ORDERED: LR 15ML/HR IV SCH (06:00)
[2019-02-25] MEDS ORDERED: dexAMETHasone 4 MG TAB PO SCH (06:00)
[2019-02-25] MEDS ORDERED: CEFAZOLIN 2000MG 2,000 MG/15 ML SYR IV SCH (06:00)
[2019-02-25] MEDS ORDERED: ACETAMINOPHEN 500 MG TAB PO SCH (06:00)
[2019-02-25] MEDS ORDERED: METOCLOPRAMIDE HCL 10 MG TABLET PO SCH (06:00)
[2019-02-25] MEDS ORDERED: FAMOTIDINE 20 MG TAB PO SCH (06:00)
[2019-02-25] MEDS ORDERED: GABAPENTIN 300 MG CAP PO SCH (06:00)
[2019-02-25] MEDS ORDERED: ROPIVACAINE 0.5% 5 MG/ML 30 ML VIAL ONE (06:24)
[2019-02-25] MEDS ORDERED: EPINEPHrine INJ 1 MG/ML AMP ONE (06:25)
[2019-02-25] MEDS ORDERED: BUPIVACAINE 0.5 % 5 MG/1 ML PF 10ML VIAL ONE (06:25)
[2019-02-25] MEDS ORDERED: MIDAZOLAM HCL 1 MG/ML 2ML VIAL ONE (06:53)
[2019-02-25] MEDS ORDERED: fentaNYL citrate 100 MCG/2 ML VIAL ONE ×3 (06:53→11:44)
[2019-02-25] MEDS ORDERED: ONDANSETRON INJ 2 MG/ML 2 ML VIAL ONE (06:53)
[2019-02-25] MEDS ORDERED: LIDOCAINE HCL 2% 2 ML VIAL/AMP(20MG/ML) INFIL ONE (06:53)
[2019-02-25] MEDS ORDERED: DEXAMETHASONE SOD INJ 4 MG/ML VIAL ONE ×2 (06:53→09:45)
[2019-02-25] MEDS ORDERED: ROCURONIUM BROMIDE 10 MG/ML 5 ML VIAL ONE (06:53)
[2019-02-25] MEDS ORDERED: PROPOFOL IV EMULSION 10 MG/ML 20 ML VIAL IV ONE (06:53)
--- NOTE | 2019-02-25 07:02 | History & Physical Bridge Note ---
Date of Service February 25, 2019 History & Physical Bridge Note I have examined the patient, reviewed the History & Physical and in the interval since the performance of the History & Physical I have noted the following changes of clinical significance: no changes noted
[2019-02-25] MEDS ORDERED: BACITRACIN INJ 50,000 UNIT VIAL ONE (07:24)
[2019-02-25] MEDS ORDERED: ATROPINE SULFATE 0.1 MG/ML 10ML SYR IV PRN (07:28)
[2019-02-25] MEDS ORDERED: HYDROmorphone INJ 1 MG/ML SYRINGE IV PRN (07:28)
[2019-02-25] MEDS ORDERED: ONDANSETRON INJ 2 MG/ML 2 ML VIAL IV PRN ×2 (07:28→11:21)
[2019-02-25] MEDS ORDERED: fentaNYL citrate 100 MCG/2 ML VIAL IV PRN (07:28)
[2019-02-25] MEDS ORDERED: ePHEDrine sulfate 50 MG/ML AMP IV PRN (07:28)
[2019-02-25] MEDS ORDERED: NEOSTIGMINE METHYLSULFATE 5 MG/5 ML SYR ONE (09:46)
[2019-02-25] MEDS ORDERED: ePHEDrine sulfate 50 MG/ML SYR ONE (09:46)
[2019-02-25] MEDS ORDERED: GLYCOPYRROLATE 0.2 MG/ML VIAL ONE (09:46)
--- NOTE | 2019-02-25 09:46 | Post Operative Brief Note ---
Immediate Post Op Note v1 Date of Surgery February 25, 2019 Pre & Post Diagnosis Operation Date: 02/25/19 07:15 Pre-Op Diagnosis: Left shoulder rotator cuff tear arthropathy Post-Op Diagnosis: Left shoulder rotator cuff tear arthropathy I identified the patient and participated in the time-out.: Yes Procedure Operation Date: 02/25/19 07:15 Actual Procedures Left Reverse Total Shoulder Arthroplasty(Left) - Darius Guadarrama M.D. Surgeon Darius Guadarrama Parts Administrator Chemo Brandt PA-C Estimated Blood Loss 125 Findings Consistent with Post-Op Diagnosis
--- NOTE | 2019-02-25 10:14 | Operative Report ---
Post Operative Report Pre & Post Diagnosis Operation Date: 02/25/19 07:15 Pre-Op Diagnosis: Left shoulder rotator cuff arthropathy Post-Op Diagnosis: Left shoulder rotator cuff arthropathy I identified the patient and participated in the time-out.: Yes Procedure Operation Date: 02/25/19 07:15 Actual Procedures Left Reverse Total Shoulder Arthroplasty (29029) with biceps tenodesis (17249) - Darius Guadarrama M.D. Surgeon Darius Guadarrama Lithograph Press Feeder Chemo Brandt PA-C Estimated Blood Loss 125 Findings Consistent with Post-Op Diagnosis Specimens Humeral head Drains None Anesthesia Type General Regional Complications none Disposition Disposition: Recovery Room Indications Mr. Villagomez is a 73-year-old male with persistent left shoulder pain. History, clinical exam, and imaging were consistent with the above diagnosis. Risks, benefits, and alternatives of surgery were explained in detail. The patient understood all this and wished to proceed. Description of Procedure Components Implanted: Tornier Reverse Total Shoulder implants Perform glenoid baseplate: 29mm, 15 degree full wedge with 6.5mm central screw and 5.0mm peripheral screws Glenosphere: 39mm, 3mm eccentric offset Ascend Flex humeral stem: 3B Standard length (78mm) Humeral tray: 1.5mm offset, +0mm thickness Polyethylene insert: 39mm, +6mm thickness Patient was identified in the preoperative holding area. Operative extremity was marked. Regional blockade was given by the Anesthesia Staff. Patient was then brought back to the operating room, and general anesthesia was induced without complication. Appropriate weight-based dose of Ancef was infused intravenously for antibiotic prophylaxis. The patient was then placed in the beachchair position. Left arm was then prepped and draped in a standard sterile fashion using Chlorhexidine prep. A standard deltopectoral incision was made through the skin and subcutaneous tissue. The cephalic vein was identified and retracted medially. Small branches to the deltoid were coagulated as necessary. The clavipectoral fascia was then incised and the subdeltoid space was opened. The rotator cuff was found to be deficient, and I therefore decided to perform a reverse total shoulder arthroplasty as planned preoperatively. The biceps tendon was identified within the bicipital groove and tenodesed at the superior border of the pectoralis tendon with #2 FiberWire sutures. The biceps tendon was then divided proximal to the tenodesis site and the rotator interval was opened. The proximal portion of the biceps tendon was excised. The remaining subscapularis tendon was elevated subperiosteally off of the lesser tuberosity and tagged with a #0 Vicryl suture. The glenohumeral joint was then dislocated, and large osteophytes were debrided with a ronguer. The humeral head cut was then made in the appropriate inclination and version using the cutting guide. The intramedullary canal of the humerus was then opened with a canal finder. The humeral canal was then sequentially broached to the appropriate size. A protective cap was then placed on top of the humeral trial. I then turned my attention to the glenoid. The proximal stump of the biceps tendon was excised, along with the labrum circumferentially around the glenoid. The blueprint drill guide was then positioned on the glenoid, and the guidepin was then inserted. The 15 degree angled reamer reamer was then inserted over the guidepin and an reamed to an appropriate depth. The central screw hole was drilled and tapped, and appropriate length 6.5mm central screw was selected. The baseplate was then implanted into place according to our preoperative Blueprint plan by tightening down the central screw. A peripheral 5mm nonlocking screw was placed superiorly first for additional compression of the baseplate, and then additional locking 5 mm peripheral screws were placed to complete fixation of the baseplate. Glenosphere was then impacted and secured. A trial humeral tray and insert were placed on the trial humeral stem, and a trial reduction was carried out. Once I achieved acceptable joint stability and range of motion with the trial implants, the final humeral implants were assembled on the back table and then impacted into position. I then took the shoulder through full range of motion to ensure good stability and acceptable motion. Wound was then copiously irrigated with sterile saline. Deep fascia was closed with 0 V-lock suture. Subcutaneous tissue was closed with 2-0 V-lock, and skin was closed with 3-0 V-lock. Skin was then sealed with Dermabond. Sterile dressings were then applied with a waterproof silver-impregnated dressing. The drapes were removed, the patient was awakened from anesthesia, and taken to the Post Anesthesia Care Unit in stable condition. There were no immediate complications from the procedure. I was present and scrubbed for the entire procedure. Due to the complex nature of the procedure, the entire surgery was performed with the operational assistance of Chemo Brandt PA-C. The wet process assistant head miller, under direct supervision, was involved in the performance of all aspects of the surgical procedure including patient positioning, tissue retraction, hemostasis, wound closure, and dressing application. I attest to the content of the Intraoperative Record and any orders documented therein. Any exceptions are noted below.
--- NOTE | 2019-02-25 10:50 | Anesthesiology Progress Note ---
Date of Service February 25, 2019 Anesthesia Post Procedure Vital Signs Vital Signs: Temp Pulse Pulse Resp BP Pulse Ox 02/25/19 10:40 74 21 116/72 97 02/25/19 10:30 71 18 129/74 100 02/25/19 10:20 67 16 124/72 99 02/25/19 10:13 36 C L 64 17 127/66 97 02/25/19 05:33 36.6 C 63 18 148/87 H 96 Pain Intensity Left Shoulder: Pain Intensity: 4 Transfer of Care Handoff Completed per policy Notes Mental Status: alert / awake / arousable and participated in evaluation Patient Amnestic to Procedure: Yes Nausea / Vomiting: adequately controlled Pain: adequately controlled Airway Patency, RR, SpO2: stable & adequate BP & HR: stable & adequate Hydration State: stable & adequate Anesthetic Complications: no major complications apparent and Pt Satisfied with anesthetic care
--- NOTE | 2019-02-25 10:59 | XRay Report ---
LEFT SHOULDER 2 VIEWS CLINICAL HISTORY: Postoperative examination. FINDINGS: 2 portable views of the left shoulder are obtained. No prior studies are available for wally valdes at the time of dictation. The skeletal structures are osteopenic. A left shoulder arthroplasty is in near anatomic alignment. No acute fracture is seen. Soft tissue edema and subcutaneous gas jonnie und the left shoulder are expected postoperative changes. The visualized left lung parenchyma appears clear noting basilar atelectasis. IMPRESSION: Expected postoperative findings status post left shoulder arthroplasty. No acute fracture is seen. Electronically signed by: Salvador Whittaker M.D. 02/25/2019 10:58 AM
[2019-02-25] MEDS ORDERED: NITROGLYCERIN SL 0.4 MG/TAB TAB SL PRN (11:21)
[2019-02-25] MEDS ORDERED: BISACODYL 10 MG SUPP PR PRN (11:21)
[2019-02-25] MEDS ORDERED: NALOXONE HCL 0.4 MG/1 ML VIAL/CARP IV PRN (11:21)
[2019-02-25] MEDS ORDERED: MAGNESIUM HYDROXIDE SUSP 30 ML UDC PO PRN (11:21)
[2019-02-25] MEDS ORDERED: METOCLOPRAMIDE HCL INJ 5 MG/ML 2 ML VIAL IV PRN (11:21)
[2019-02-25] MEDS ORDERED: PRAVASTATIN SOD 10 MG TAB PO SCH (12:00)
[2019-02-25] MEDS: SODIUM CHLORIDE 0.9% 1000ML 1,000 ML IV SCH ×2 (13:03→21:58)
[2019-02-25] MEDS: GABAPENTIN 400 MG CAP PO SCH ×2 (13:04→20:26)
[2019-02-25] MEDS: ACETAMINOPHEN 500 MG TAB PO SCH ×3 (13:04→23:53)
[2019-02-25] MEDS: IBUPROFEN 600 MG TAB PO SCH ×2 (14:49→20:26)
[2019-02-25] MEDS: CEFAZOLIN 2000MG 2,000 MG/15 ML SYR IV SCH ×2 (15:32→23:53)
[2019-02-25] MEDS: DOCUSATE SODIUM 100 MG CAP PO SCH (20:26)
[2019-02-25] MEDS: OXYCODONE HCL IR 5 MG TAB (IMMEDIATE RELEASE) PO PRN (20:35)
[2019-02-25] MEDS ORDERED: LORATADINE 10 MG TAB PO SCH (21:00)
[2019-02-25] MEDS ORDERED: SENNA 8.6 MG TAB PO SCH (21:00)
[2019-02-25] MEDS ORDERED: CHOLECALCIFEROL 1,000 UNITS TAB PO SCH (21:00)
[2019-02-26] MEDS: IBUPROFEN 600 MG TAB PO SCH ×2 (03:14→07:52)
[2019-02-26] MEDS: OXYCODONE HCL IR 5 MG TAB (IMMEDIATE RELEASE) PO PRN (05:04)
[2019-02-26] MEDS: ACETAMINOPHEN 500 MG TAB PO SCH ×2 (05:04→11:43)
[2019-02-26 05:54] LABS: Eosinophils # (auto) 0.01 K/uL (0-0.5); Eosinophils % (auto) 0.1 %; Hematocrit (blood only) 39.2 % (42-52); Hemoglobin 13.5 g/dL (14.0-18.0); Immature Granulocytes # (auto) 0.04 K/uL (0.00-0.02); Immature Granulocytes % (auto) 0.3 %; Lymphocytes # (auto) 0.83 K/uL (1.2-3.4); Lymphocytes % (auto) 6.3 %; Mean Corpuscular Hemoglobin 32.2 pg (25-34); Mean Corpuscular Hgb Conc 34.4 g/dL (32-36); Mean Corpuscular Volume 93.6 fL (80-100); Mean Platelet Volume 10.3 fL (7.4-10.4); Monocytes # (auto) 1.25 K/uL (0.11-0.59); Monocytes % (auto) 9.5 %; Neutrophils # (auto) 10.98 K/uL (1.4-6.5); Neutrophils % (auto) 83.8 %; Platelet Count 174 K/uL (130-400); RDW Coefficient of Variation 14.7 % (11.5-14.5); RDW Standard Deviation 50.1 fL (36.4-46.3); Red Blood Count 4.19 M/uL (4.7-6.1); White Blood Count 13.11 K/uL (4.8-10.8)
[2019-02-26 06:24] LABS: BUN Creatinine Ratio 18.3 (10-20); Calcium 8.4 mg/dl (8.5-10.1); Creatinine Clr Calc Pharmacy 69.4 ml/min; Est GFR (African American) 77.3; Est GFR (Non-African American) 66.7; Potassium 3.9 mmol/L (3.5-5.1)
[2019-02-26] MEDS: GABAPENTIN 400 MG CAP PO SCH (07:52)
[2019-02-26] MEDS: DOCUSATE SODIUM 100 MG CAP PO SCH (07:52)
--- NOTE | 2019-02-26 07:58 | Anesthesiology Progress Note ---
Date of Service February 26, 2019 Anesthesia Post Procedure Vital Signs Vital Signs: Temp Pulse Pulse Resp BP Pulse Ox 02/26/19 07:48 36.9 C 65 18 130/78 94 02/26/19 02:28 36.7 C 67 16 125/71 95 02/25/19 23:06 36.6 C 78 18 131/71 95 02/25/19 19:15 37 C 72 16 114/63 93 02/25/19 16:32 36.9 C 82 18 119/68 94 02/25/19 15:35 36.8 C 90 18 126/69 95 02/25/19 13:51 36.6 C 89 18 130/68 97 02/25/19 13:00 36.5 C 91 H 18 130/75 02/25/19 11:25 36.6 C 80 18 122/71 99 02/25/19 11:15 77 14 122/72 98 02/25/19 11:00 74 14 128/75 97 02/25/19 10:50 36.5 C 73 17 127/72 98 02/25/19 10:40 74 21 116/72 97 02/25/19 10:30 71 18 129/74 100 02/25/19 10:20 67 16 124/72 99 02/25/19 10:13 36 C L 64 17 127/66 97 Pain Intensity Left Shoulder: Pain Intensity: 2 Transfer of Care Handoff Completed per policy Notes Mental Status: alert / awake / arousable and participated in evaluation Patient Amnestic to Procedure: Yes Nausea / Vomiting: adequately controlled Pain: adequately controlled Airway Patency, RR, SpO2: stable & adequate BP & HR: stable & adequate Hydration State: stable & adequate Anesthetic Complications: no major complications apparent and Pt Satisfied with anesthetic care
--- NOTE | 2019-02-26 08:56 | Orthopedic Progress Note ---
Date of Service February 26, 2019 Assessment & Plan (1) Rotator cuff arthropathy of left shoulder: Postop day 1 status post left reverse total shoulder arthroplasty. PT/OT protocols. DVT prophylaxis-aspirin daily, SCDs Pain management as written Subjective Patient sitting up in bed awake and alert. Having some mild pain in the left shoulder but otherwise has no complaints. Denies any shortness of breath, chest pain, lightheadedness. Physical Exam Physical Exam: Silverlon dressing is intact with mild drainage noted in the dressing window. Elbow wrist and finger range of motion within normal limits. Good strengths. Denies decreased sensation at this time. Neurovascular is intact. Sling in place. Results & Data Vital Signs (Past 12 Hours) Vital Signs Temp Pulse Pulse Resp BP Pulse Ox 02/26/19 07:48 36.9 C 65 18 130/78 94 02/26/19 02:28 36.7 C 67 16 125/71 95 02/25/19 23:06 36.6 C 78 18 131/71 95 Laboratory Results Laboratory Results WBC 13.11 K/uL (4.8-10.8) H 02/26/19 05:11 RBC 4.19 M/uL (4.7-6.1) L 02/26/19 05:11 Hgb 13.5 g/dL (14.0-18.0) L 02/26/19 05:11 Hct 39.2 % (42-52) L 02/26/19 05:11 MCV 93.6 fL (80-100) 02/26/19 05:11 MCH 32.2 pg (25-34) 02/26/19 05:11 MCHC 34.4 g/dL (32-36) 02/26/19 05:11 RDW Std Deviation 50.1 fL (36.4-46.3) H 02/26/19 05:11 RDW Coeff of Swetha 14.7 % (11.5-14.5) H 02/26/19 05:11 Plt Count 174 K/uL (130-400) 02/26/19 05:11 MPV 10.3 fL (7.4-10.4) 02/26/19 05:11 Immature Gran % (Auto) 0.3 % 02/26/19 05:11 Neut % (Auto) 83.8 % 02/26/19 05:11 Lymph % (Auto) 6.3 % 02/26/19 05:11 [place] % (Auto) 9.5 % 02/26/19 05:11 Eos % (Auto) 0.1 % 02/26/19 05:11 Baso % (Auto) 0.0 % 02/26/19 05:11 Immature Gran # (Auto) 0.04 K/uL (0.00-0.02) H 02/26/19 05:11 Neut # (Auto) 10.98 K/uL (1.4-6.5) H 02/26/19 05:11 Lymph # (Auto) 0.83 K/uL (1.2-3.4) L 02/26/19 05:11 [place] # (Auto) 1.25 K/uL (0.11-0.59) H 02/26/19 05:11 Eos # (Auto) 0.01 K/uL (0-0.5) 02/26/19 05:11 Baso # (Auto) 0.00 K/uL (0-0.2) 02/26/19 05:11 PT 10.3 Seconds (9.0-12.0) 02/02/19 08:58 INR 1.0 (0.9-1.1) 02/02/19 08:58 APTT 25.4 Seconds (21.0-31.0) 02/02/19 08:58 PTT Ratio 0.9 02/02/19 08:58 Sodium 136 mmol/L (136-145) 02/26/19 05:11 Potassium 3.9 mmol/L (3.5-5.1) 02/26/19 05:11 Chloride 105 mmol/L (98-107) 02/26/19 05:11 Carbon Dioxide 25 mmol/L (21-32) 02/26/19 05:11 Anion Gap 6.0 (3-11) 02/26/19 05:11 BUN 20 mg/dl (7-18) H 02/26/19 05:11 Creatinine 1.10 mg/dl (0.6-1.4) 02/26/19 05:11 Est Cr Clr Drug Dosing 69.4 ml/min 02/26/19 05:11 Est GFR ( Amer) 77.3 02/26/19 05:11 Est GFR (Non-Af Amer) 66.7 11/22/19 05:11 BUN/Creatinine Ratio 18.3 (10-20) 02/26/19 05:11 Glucose 119 mg/dl (70-99) H 02/26/19 05:11 Estimat Average Glucose 120 mg/dl 02/02/19 08:58 Hemoglobin A1c 5.8 % (4.5-5.6) H 02/02/19 08:58 Calcium 8.4 mg/dl (8.5-10.1) L 02/26/19 05:11 Albumin 3.8 gm/dl (3.4-5.0) 02/02/19 08:58 Urine Color Yellow 02/02/19 08:58 Urine Appearance Clear (Clear) 02/02/19 08:58 Urine pH 8.5 (4.5-7.5) H 02/02/19 08:58 Ur Specific [place] 1.020 (1.000-1.030) 02/02/19 08:58 Urine Protein Negative (Negative) 02/02/19 08:58 Urine Glucose (UA) Negative (Negative) 02/02/19 08:58 Urine Ketones Negative (Negative) 02/02/19 08:58 Urine Blood Negative (Negative) 02/02/19 08:58 Urine Nitrite Negative (Negative) 02/02/19 08:58 Urine Bilirubin Negative (Negative) 02/02/19 08:58 Urine Urobilinogen Negative (Negative) 02/02/19 08:58 Ur Leukocyte Esterase Negative (Negative) 02/02/19 08:58 Blood Type O Positive 02/02/19 08:58 Antibody Screen NEGATIVE 02/02/19 08:58
[2019-02-26] MEDS ORDERED: MULTIVITAMIN TAB PO SCH (09:00)
[2019-02-26] MEDS ORDERED: ASPIRIN 325 MG ECTAB PO SCH (09:00)
--- NOTE | 2019-02-26 12:57 | Discharge Summary ---
Date of Service February 26, 2019 Admission HPI Per Admitting Provider Mr. Villagomez returns today for his left shoulder pain. Again, he had an injury in his left shoulder when he was lifting a gas can and felt sudden severe pain in the left shoulder. This occurred around mid November. I initially saw him for this about a month ago in early December. At that point, the pain was already improving. I gave him a subacromial steroid injection and sent him for physical therapy. The injection did help, but he still has significant pain and weakness in that left shoulder that is very bothersome to him. It is waking him up at night. This is very frustrating to him. Principal Diagnosis Left shoulder rotator cuff tear arthropathy Discharge Data Allergies Allergy/AdvReac Type Severity Reaction Status Date / Time No Known Allergies Allergy Unknown Verified 02/25/19 05:25 Consultations 02/25/19 11:21 Consult Case Management - Discharge Planning Routine Procedures Performed Operation Date: 02/25/19 07:15 Actual Procedures p Left Reverse Total Shoulder Arthroplasty(Left) - Darius Guadarrama M.D. Ordered Studies 02/25/19 05:00 US - OR guided needle placemen Routine 02/25/19 07:00 US - OR guided needle placemen Routine Hospital Course (1) Rotator cuff arthropathy of left shoulder: Mr. Villagomez underwent the above-mentioned left reverse total shoulder arthroplasty on February 25. He tolerated the procedure well and was transferred up to the general orthopedic surgery floor in stable condition. Perioperative antibiotics were initiated for 24 hours. He was started on DVT prophylaxis consisting of aspirin 325 mg daily starting the morning after surgery. On postoperative day 1, his pain was well-controlled on oral pain medicines only. He was tolerating regular diet and mobilizing well. He was therefore determined to be safe and ready for discharge to home. Total Time Total Time Spent Total Time Spent (In Minutes): 10 Discharge Plan Discharge Items Patient Disposition: Home - Self-Care Reason For Visit: Pain in Left Shoulder Discharge Diagnosis: Left shoulder rotator cuff tear arthropathy Activity: Per Instructions section Call non-emergency contact if: your pain is not controlled, your temperature is above 101.5, your wound has increased redness and your wound has increased drainage Follow-up/Referrals: Shiva He MD [Primary Care Provider] - Darius Guadarrama M.D. [Physician] - Diet: Regular Addtl Attending Provider Instructions: Things to Watch Out For -Go to the Emergency Room if you have sudden onset of nausea, vomiting, chest pain, shortness of breath, or uncontrollable pain. -Call the clinic or go to the Emergency Room if you have a sudden increase in the amount of wound drainage or the drainage becomes thick, yellow or green, or foul-smelling. -For routine questions, call the clinic during regular business hours (8am-5pm). For urgent issues after regular business hours, you may call the clinic to be connected to the on-call physician. Dressings -A special waterproof, silver-impregnated dressing was placed on your shoulder. Keep this dressing in place for 1 week after surgery. You may shower with the waterproof dressing in place, but do not soak the dressing in the bathtub or pool. -One week after surgery, you may remove the waterproof dressing. You may continue to shower, and let water run BRIEFLY over the incision, but do not soak the incision in the bathtub or pool for 2 weeks. You may also gently clean the incision with mild soap and water; pat the incision dry after cleaning-do not rub the incision. Apply a new dressing daily thereafter. Shoulder Exercises -Keep your operative shoulder in the sling for comfort, except as detailed below. -You should come out of the sling 4-5 times a day for passive pendulum exercises: lean over and swing your arm in a circular pattern. -You should also do active-assisted forward flexion exercises: use your opposite hand to lift your operative arm forward to 90 degrees. -Do not use your arm to push yourself up out of bed or up from a seated position. -Do not flex your elbow (curl motion) or supinate your forearm (rotating palm up) against resistance. Ice Pack -You may use an ice pack for pain relief. You should use it 20-30 minutes at a time. Place a towel between the ice pack and your skin to prevent frostbite. -You should use the ice pack fairly regularly for the first 1-2 weeks after surgery to help reduce pain and inflammation. -About 2 weeks after your surgery, you should start using heat to loosen up your shoulder prior to doing your stretching exercises, then use the cooling sleeve after your exercises are complete to reduce swelling and pain. Pain Medicines -You have been prescribed an anti-inflammatory (Motrin/ibuprofen) and a non- narcotic pain medicine (Tylenol/acetaminophen). These are your primary pain medications. Take them each every 6 hours as instructed. It is recommended that you stagger these medicines every 3 hours (i.e. take ibuprofen at 8:00 am, then acetaminophen at 11:00 am, then ibuprofen at 2:00 pm, etc) -DO NOT take any additional anti-inflammatories (Advil, Aleve/naproxen, Mobic/meloxicam, Celebrex) or any additional Tylenol/acetaminophen products with these prescribed medications. -You have also been prescribed an additional narcotic pain medication (oxycodone). Take this medicine ONLY for breakthrough pain not controlled by the ibuprofen and acetaminophen. -Do not drive or operate heavy machinery while taking the narcotic medication. -Common side effects of narcotic pain medicines include itching, nausea, constipation, and feeling ``loopy. However, if you develop a rash or hives, stop taking the medicine and call the clinic. If you develop swelling in your throat or difficulty breathing, go to the Emergency Room or call 911 IMMEDIATELY. -You may take over the counter stool softeners if needed for constipation. Aspirin -Take a full strength (325mg) aspirin every day for 4 weeks (28 days) to prevent blood clots. -If you were taking a baby aspirin (81mg) prior to surgery, you may resume taking this 81mg dose after you complete the 28-day course of the 325mg strength dose; do not take the 325mg dose in addition to your 81mg dose. -Be aware that you will bruise easier while taking Aspirin; this is normal. However, if you develop a significantly large area of swelling after an injury, or have a cut that will not stop bleeding, call the clinic or go to the Emergency Room immediately. Pending Studies at Discharge: No Stand-Alone Forms: My [facility], Opioid Pain Management Medications and DC Order Prescriptions: New acetaminophen [Tylenol Extra Strength] 500 mg Tablet 500 mg PO Q6 Qty: 60 RF: 0 aspirin 325 mg Tablet,Delayed Release (Dr/Ec) 325 mg PO QAM Qty: 28 RF: 0 ibuprofen 600 mg Tablet 600 mg PO Q6H Qty: 60 RF: 0 oxycodone 5 mg Tablet 5 mg PO Q4H PRN (Reason: for breakthrough pain not controlled by other medications) Qty: 30 RF: 0 Continued nitroglycerin 0.4 mg Tablet, Sublingual 0.4 mg sublingual UD PRN (Reason: Chest Pain) RF: 0 gabapentin 400 mg Capsule 400 mg PO TID RF: 0 pravastatin 10 mg Tablet 10 mg PO Q48H RF: 0 loratadine 10 mg Tablet 10 mg PO QPM RF: 0 cholecalciferol (vitamin D3) 1,000 unit Capsule 1,000 unit PO QPM RF: 0 Discontinued diclofenac sodium 1 % Gel 2 g TOPICAL UD PRN (Reason: Pain) RF: 0 aspirin [Aspirin Low Dose] 81 mg Tablet,Delayed Release (Dr/Ec) 81 mg PO Q48H RF: 0 Discharge Orders: Discharge Order (Routine); Ordered 02/26/19 Ordered By: Bhupendra Fuller/Other Patient Handouts: Surgery Prevent DVT After Admission Data Admit Date/Time: 02/25/19 10:18 Attending Provider: Darius Guadarrama Admit Provider: Darius Guadarrama Primary Care Provider: Shiva He Other Interventions: Discharge Summary Assessment (RN) Last Done: 02/26/19 12:28
== END 2019-02-26 14:17 | disposition home or self-care (01) | DRG 483 ==
LOC: ASU 05:00 → 3E 10:18

== ENCOUNTER 2020-10-17 18:38 | Observation (INO) ==
--- NOTE | 2020-10-17 18:44 | Emergency Department Note ---
Impression & Plan Chest pain ED Provider Note NAME: ROSSY HGIGINS AGE: 74 SEX: M : 1945 ARRIVES VIA: Ambulance INFORMANT: Patient, ED PROVIDER(S): Stephen Barber MD Chief Complaint: Chest pressure, shortness of breath with difficulty swallowing HPI: Patient states that he was eating a sandwich just prior to arrival and as the patient was eating this he had some epigastric discomfort. Patient states that this persisted was an 8 out of 10 and slightly sharp in nature. The patient does have associated nausea. The patient denies any fevers or chills. The patient states that his pain is a 2 out of 10 currently. The patient did receive Zofran and nitro in route. The patient does have history of hiatal hernia. No infectious symptoms cough fevers or chills. Patient denies lower extremity swelling or recent surgeries or procedures. No history of DVT or PE. Patient does have a history of prostate cancer but states that this has resolved. Patient does drink occasional alcohol but does not use tobacco. Pat ient states that he did feel improved after the nitro. Patient believes that he was able to completely swallow his sandwich and does not feel as though he is obstructed. No prior history of EGD. ROS: See HPI for pertinent positives and negatives. A total of 10 systems were reviewed and otherwise negative. Past medical history: See below Surgical history: See below Social history: See below Physical Exam: GENERAL: Wearing glasses and a mask. NAD, non-toxic. EYE EXAM: Normal conjunctiva. PERRL, no anisocoria and EOM's grossly intact w/o pain. NECK: Supple, no nuchal rigidity, no adenopathy, non-tender. No signs of meningismus. Not stridulous. LUNGS: Clear to auscultation. Normal chest wall mechanics. HEART: NSR, no MRG. ABDOMEN: Abdomen soft, non-tender, normo-active bowel sounds, no masses, no rebound or guarding. BACK: No CVA TTP. SKIN: No rashes and no bruising. UPPER EXTREMITIES: Upper extremities are grossly normal. LOWER EXTREMITIES: Grossly normal, no edema. NEURO EXAM: A&O x3, cranial nerves II-XII grossly intact, normal speech, moves all 4 extremities on command w/o issue. Differential diagnoses: Cardiac ischemia, aortic dissection, pulmonary embolism, pneumothorax, pneumonia, pericarditis, myocarditis, esophageal rupture, GERD, cholecystitis, pancreatitis, musculoskeletal, as well as other pathologies. Course: Patient was seen and evaluated the bedside. Full history physical exam was performed. EKG interpreted by me Sinus bradycardia with short LA, rate of 59, wide QRS, right bundle branch block pattern. Imaging Studies: See below Cardiac monitoring: An order was placed for continuous cardiac monitoring. The monitor shows a rate of 58 with regular rhythm. MDM: Patient was seen due to concern for chest pain. The patient did have improvement in symptoms with nitro. Blood work was obtained along with an EKG and a chest x-ray. The patient did have improvement in symptoms from an 8 out of 10 to a 2 out of 10. Patient has no prior history of heart or lung disease. The certainly could be esophageal spasm as it did occur at the time that he had eaten something but given the improvement with nitro would recommend observation. The patient is amenable to this plan. The patient's EKG does not show any obvious ischemia but does show short LA with sinus bradycardia. Patient has a normal white count H&H and platelet count. Patient's kidney function is unremarkable. Initial troponin is negative. Covid negative. Chest x-ray is negative. I did speak the on-call hospitalist Dr. Herrera and the patient was admitted to the medicine service. Past Med/Surg History Medical History Arthritis Asthma no recent issues/no inhaler Bifascicular block Degenerative disc disease Hiatal hernia History of kidney stones History of prostate cancer s/p prostatectomy HLD (hyperlipidemia) [place] (hard of hearing) Male erectile disorder Nocturia Obesity Osteoarthritis Poor urinary stream Urinary frequency Surgical History History of colonoscopy History of open reduction and internal fixation (ORIF) procedure LLE History of prostate biopsy History of prostatectomy History of tonsillectomy S/P appendectomy Family History Mother Diabetes Son Esophageal cancer Other Heart disease Social History Smoking Status: Never smoker Years Smoked: 15; Number of Years Since Quit: 4; Second Hand Exposure: No; Hx Alcohol Use: No Hx Substance Use: No Preferred Language: Burundian Communication Ability: Effective 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 Beliefs That Will Affect Care: None marital status: Current Living Situation: Spouse Feels Safe at Home: Yes Assistive Devices: Glasses, Hearing Aid - Left and Hearing Aid - Right Allergies Allergies Allergy/AdvReac Type Severity Reaction Status Date / Time sulindac Allergy Unknown Verified 10/17/20 19:46 Home Meds Home Medications Medication Instructions Recorded Confirmed cholecalciferol (vitamin D3) 1,000 unit PO QPM 06/15/18 10/17/20 gabapentin 400 mg PO TID 06/15/18 10/17/20 loratadine 10 mg PO QPM 06/15/18 10/17/20 pravastatin 10 mg PO Q48H 06/15/18 10/17/20 nitroglycerin 0.4 mg SUBLINGUAL UD PRN 01/26/19 10/17/20 acetaminophen [Tylenol Extra 1,000 mg PO Q6 PRN 10/17/20 10/17/20 Strength] aspirin [Aspir-Low] 81 mg PO Q OTHER DAY 10/17/20 10/17/20 Previous Rx's Medication Instructions Recorded oxycodone 5 mg PO Q4H PRN #30 tab 02/25/19 Results & Data (ED) Vital Signs Vital Signs - 24 hr 10/17/20 18:43 10/17/20 18:47 10/17/20 19:27 Temperature 36.6 C Temperature Source Oral Pulse Rate 65 63 Pulse Rate [Right Radial] 61 Pulse Rate from SpO2 Sensor 65 Pulse Rhythm [Right Radial] Regular Pulse Strength [Right Radial] Normal Respiratory Rate 24 16 18 Respiratory Effort / Characteristics Non-Labored Non-Labored Respiratory Depth Normal Normal Respiratory Pattern Regular Regular Blood Pressure 128/73 128/73 Blood Pressure [Right Arm] 128/73 Blood Pressure Mean 91 91 Blood Pressure Mean [Right Arm] 91 Blood Pressure Position [Right Arm] Sitting Pulse Oximetry 95 95 95 Oxygen Delivery Method Room Air Room Air Oxygen Flow Rate 0 Sepsis Recent Fever Within 48 Hours No Sepsis New/Unexplained Change in Mental Status N/A Sepsis Action Taken by Nursing No Action Required Home Medications Current Medication List: was personally reviewed by me Laboratory Data Attestation: I reviewed the patient's lab results. Result diagrams: 10/17/20 18:40 10/17/20 19:08 Lab Results 10/17/20 10/17/20 10/17/20 Range/Units 18:40 18:40 19:08 WBC 5.93 (4.8-10.8) K/uL RBC 4.76 (4.7-6.1) M/uL Hgb 14.5 (14.0-18.0) g/dL Hct 43.4 (42-52) % MCV 91.2 (80-100) fL MCH 30.5 (25-34) pg MCHC 33.4 (32-36) g/dL RDW Std Deviation 55.8 H (36.4-46.3) fL RDW Coeff of Swetha 16.6 H (11.5-14.5) % Plt Count 210 (130-400) K/uL MPV 10.7 H (7.4-10.4) fL Immature Gran % (Auto) 0.2 % Neut % (Auto) 61.7 % Lymph % (Auto) 27.5 % [place] % (Auto) 6.7 % Eos % (Auto) 3.7 % Baso % (Auto) 0.2 % Neut # (Auto) 3.66 (1.4-6.5) K/uL Lymph # (Auto) 1.63 (1.2-3.4) K/uL [place] # (Auto) 0.40 (0.11-0.59) K/uL Eos # (Auto) 0.22 (0-0.5) K/uL Baso # (Auto) 0.01 (0-0.2) K/uL Immature Gran # (Auto) 0.01 (0.00-0.02) K/uL APTT 26.5 (21.0-31.0) Seconds PTT Ratio 1.0 Sodium 141 (136-145) mmol/L Potassium 3.9 (3.5-5.1) mmol/L Chloride 111 H (98-107) mmol/L Carbon Dioxide 26 (21-32) mmol/L Anion Gap 4.0 (3-11) BUN 17 (7-18) mg/dl Creatinine 0.87 (0.6-1.4) mg/dl Est Cr Clr Drug Dosing 85.6 ml/min Est GFR ( Amer) 99.2 ml/min Est GFR (Non-Af Amer) 85.6 ml/min BUN/Creatinine Ratio 20.0 (10-20) Glucose 104 H (70-99) mg/dl Calcium 8.5 (8.5-10.1) mg/dl Total Bilirubin 0.5 (0.2-1) mg/dl AST 15 (15-37) U/L ALT 19 (12-78) U/L Alkaline Phosphatase 111 (45-117) U/L Troponin I < 0.015 (0-0.045) ng/ml Total Protein 7.5 (6.4-8.2) gm/dl Albumin 3.3 L (3.4-5.0) gm/dl Globulin 4.2 H (2.5-4.0) gm/dl Albumin/Globulin Ratio 0.8 L (0.9-2) Lipase 126 (73-393) U/L Specimen Hemolysis COVID-19 Eval Order SARS-CoV-2 (PCR) (Negative) 10/17/20 10/17/20 Range/Units 19:34 19:34 WBC (4.8-10.8) K/uL RBC (4.7-6.1) M/uL Hgb (14.0-18.0) g/dL Hct (42-52) % MCV (80-100) fL MCH (25-34) pg MCHC (32-36) g/dL RDW Std Deviation (36.4-46.3) fL RDW Coeff of Swetha (11.5-14.5) % Plt Count (130-400) K/uL MPV (7.4-10.4) fL Immature Gran % (Auto) % Neut % (Auto) % Lymph % (Auto) % [place] % (Auto) % Eos % (Auto) % Baso % (Auto) % Neut # (Auto) (1.4-6.5) K/uL Lymph # (Auto) (1.2-3.4) K/uL [place] # (Auto) (0.11-0.59) K/uL Eos # (Auto) (0-0.5) K/uL Baso # (Auto) (0-0.2) K/uL Immature Gran # (Auto) (0.00-0.02) K/uL APTT (21.0-31.0) Seconds PTT Ratio Sodium (136-145) mmol/L Potassium (3.5-5.1) mmol/L Chloride (98-107) mmol/L Carbon Dioxide (21-32) mmol/L Anion Gap (3-11) BUN (7-18) mg/dl Creatinine (0.6-1.4) mg/dl Est Cr Clr Drug Dosing ml/min Est GFR ( Amer) ml/min Est GFR (Non-Af Amer) ml/min BUN/Creatinine Ratio (10-20) Glucose (70-99) mg/dl Calcium (8.5-10.1) mg/dl Total Bilirubin (0.2-1) mg/dl AST (15-37) U/L ALT (12-78) U/L Alkaline Phosphatase (45-117) U/L Troponin I (0-0.045) ng/ml Total Protein (6.4-8.2) gm/dl Albumin (3.4-5.0) gm/dl Globulin (2.5-4.0) gm/dl Albumin/Globulin Ratio (0.9-2) Lipase (73-393) U/L Specimen Hemolysis COVID-19 Eval Order Covid19 at [facility] SARS-CoV-2 (PCR) NEGATIVE (Negative) Administered Medications Discontinued Medications Aspirin (Aspirin Chew 324 Mg) 324 mg PO NOW STA Stop: 10/17/20 20:21 Last Admin: 10/17/20 21:11 Dose: 324 mg Documented by: [id number] Imaging Data Radiologist's Impression: Chest X-Ray 10/17/20 18:54 XR chest 1V portable CLINICAL HISTORY: Atypical chest pain COMPARISON STUDY: 12/04/2019 FINDINGS: The heart is at the upper limits of normal in size. There is no failure. There is no focal pulmonary consolidation. There are no pleural effusions. There is a reverse total left shoulder arthroplasty.[No pneumothorax is visualized. There is an old left clavicular fracture. IMPRESSION: No active disease in the chest. ACT 112: Negative or not required by law. Electronically signed by: Frank Freedman M.D. 10/17/2020 7:09 PM Discharge Plan Visit Data Chief Complaint: Cardiac Assessment Stated Complaint: chest pressure ED Provider: Stephen Barber Discharge Problem: Chest pain Patient Disposition: Admitted As Inpatient Discharge Instructions Interventions: ED Discharge Assessment Last Done: 10/17/20 23:16 Discharge Problem: Chest pain Qualifiers: Chest pain type: unspecified Qualified Code(s): R07.9 - Chest pain, unspecified
[2020-10-17] MEDS ORDERED: NITROGLYCERIN SL 0.4 MG/TAB TAB SL PRN (18:54)
--- NOTE | 2020-10-17 19:11 | XRay Report ---
XR chest 1V portable CLINICAL HISTORY: Atypical chest pain COMPARISON STUDY: 12/04/2019 FINDINGS: The heart is at the upper limits of normal in size. There is no failure. There is no focal pulmonary consolidation. There are no pleural effusions. There is a reverse total left shoulder arthr oplasty.[No pneumothorax is visualized. There is an old left clavicular fracture. IMPRESSION: No active disease in the chest. ACT 112: Negative or not required by law. Electronically signed by: Frank Freedman M.D. 10/17/2020 7:09 PM
[2020-10-17 19:21] LABS: Basophils # (auto) 0.01 K/uL (0-0.2); Basophils % (auto) 0.2 %; Eosinophils # (auto) 0.22 K/uL (0-0.5); Eosinophils % (auto) 3.7 %; Hematocrit (blood only) 43.4 % (42-52); Hemoglobin 14.5 g/dL (14.0-18.0); Immature Granulocytes # (auto) 0.01 K/uL (0.00-0.02); Immature Granulocytes % (auto) 0.2 %; Lymphocytes # (auto) 1.63 K/uL (1.2-3.4); Lymphocytes % (auto) 27.5 %; Mean Corpuscular Hemoglobin 30.5 pg (25-34); Mean Corpuscular Hgb Conc 33.4 g/dL (32-36); Mean Corpuscular Volume 91.2 fL (80-100); Mean Platelet Volume 10.7 fL (7.4-10.4); Monocytes % (auto) 6.7 %; Neutrophils # (auto) 3.66 K/uL (1.4-6.5); Neutrophils % (auto) 61.7 %; Platelet Count 210 K/uL (130-400); RDW Coefficient of Variation 16.6 % (11.5-14.5); RDW Standard Deviation 55.8 fL (36.4-46.3); Red Blood Count 4.76 M/uL (4.7-6.1); White Blood Count 5.93 K/uL (4.8-10.8)
[2020-10-17 19:47] LABS: Alanine Aminotransferase 19 U/L (12-78); Albumin Globulin Ratio 0.8 (0.9-2); Albumin Level 3.3 gm/dl (3.4-5.0); Alkaline Phosphatase 111 U/L (45-117); Aspartate Aminotransferase 15 U/L (15-37); Bilirubin,Total 0.5 mg/dl (0.2-1); Blood Urea Nitrogen 17 mg/dl (7-18); Calcium 8.5 mg/dl (8.5-10.1); Carbon Dioxide 26 mmol/L (21-32); Chloride 111 mmol/L (98-107); Creatinine Clr Calc Pharmacy 85.6 ml/min; Est GFR (African American) 99.2 ml/min; Est GFR (Non-African American) 85.6 ml/min; Globulin 4.2 gm/dl (2.5-4.0); Glucose 104 mg/dl (70-99); Lipase 126 U/L (73-393); Potassium 3.9 mmol/L (3.5-5.1); Sodium 141 mmol/L (136-145); Total Protein 7.5 gm/dl (6.4-8.2); Troponin I < 0.015 ng/ml (0-0.045)
[2020-10-17] MEDS ORDERED: ASPIRIN CHEW 324 MG PO STA (20:20)
[2020-10-17 21:18] LABS: Partial Thromboplastin Time 26.5 Seconds (21.0-31.0)
--- NOTE | 2020-10-17 21:21 | History & Physical Report ---
Date of Service October 17, 2020 Assessment & Plan (1) Substernal chest pain relieved by nitroglycerin: Substernal chest pain relieved by nitroglycerin spray The patient will be admitted to telemetry for serial cardiac enzymes, serial EKG's, cardiac rhythm monitoring and a 2-D echocardiogram with Dopplers. Receiving aspirin 324 mg chewable from the ED If cardiac work-up is negative, will need to be seen by gastroenterology for possible esophageal spasm Present on Admission?: Yes (2) HLD (hyperlipidemia): Hold pravastatin until swallowing assessed Present on Admission?: Yes (3) Dysphagia: Dysphagia to liquids/history of hiatal hernia- Question me that patient symptoms may have been due to esophageal spasm, as his symptoms were relieved by nitroglycerin spray Patient will be kept n.p.o. until assessed by gastroenterology Famotidine 20 mg IV every 12 hours NSS + KCl 20 mEq at 125 mils per hour Present on Admission?: Yes (4) Hiatal hernia: See above Present on Admission?: Yes History of Present Illness Chief Complaint: The patient presents to the emergency department with complaint of acute onset of difficulty swallowing liquids, that he attempted well after he had already eaten a sandwich earlier at suppertime, and developed 8/10 substernal chest discomfort Primary Care Provider: Shiva He MD The patient is a 74-year-old male with a past medical history including right renal cyst, left rotator cuff arthropathy, prostate cancer, hiatal hernia, hyperlipidemia, peripheral neuropathy, chronic pain syndrome, and allergic rhinitis. He reports that he had eaten a sandwich at suppertime, he thought he had seen a deer out in the yard, and gone into another room to look at it. At this time he also tried to drink some liquids, and was unable to swallow. He he developed significant substernal chest discomfort, that was ultimately relieved by sprays of sublingual nitroglycerin given to him in route to the ED by EMS. He has not attempted to swallow anything since that time. He has not had any previous occurrence of the symptoms. At this time his throat and chest feel normal but his throat feels dry. He denies being out in the sun and becoming overheated. He reports that his fluid intake prior to this interval had been completely normal over the past several days. Allergies Allergy/AdvReac Type Severity Reaction Status Date / Time sulindac Allergy Unknown Verified 10/17/20 19:46 Home Medications Medication Instructions Recorded Confirmed Type cholecalciferol (vitamin D3) 1,000 unit PO QPM 06/15/18 10/17/20 History gabapentin 400 mg PO TID 06/15/18 10/17/20 History loratadine 10 mg PO QPM 06/15/18 10/17/20 History pravastatin 10 mg PO Q48H 06/15/18 10/17/20 History nitroglycerin 0.4 mg SUBLINGUAL UD PRN 01/26/19 10/17/20 History oxycodone 5 mg PO Q4H PRN #30 tab 02/25/19 10/17/20 Rx acetaminophen [Tylenol Extra 1,000 mg PO Q6 PRN 10/17/20 10/17/20 History Strength] aspirin [Aspir-Low] 81 mg PO Q OTHER DAY 10/17/20 10/17/20 History Past Med/Surg History Medical History Arthritis Asthma no recent issues/no inhaler Bifascicular block Degenerative disc disease Hiatal hernia History of kidney stones History of prostate cancer s/p prostatectomy HLD (hyperlipidemia) [place] (hard of hearing) Male erectile disorder Nocturia Obesity Osteoarthritis Poor urinary stream Urinary frequency Surgical History History of colonoscopy History of open reduction and internal fixation (ORIF) procedure LLE History of prostate biopsy History of prostatectomy History of tonsillectomy S/P appendectomy Family History Mother Diabetes Son Esophageal cancer Other Heart disease Social History Smoking Status: Former smoker Years Smoked: 15; Number of Years Since Quit: 4; Second Hand Exposure: No; Hx Alcohol Use: No Hx Substance Use: No Preferred Language: Irish Communication Ability: Effective 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 Beliefs That Will Affect Care: None marital status: Current Living Situation: Spouse Feels Safe at Home: Yes Assistive Devices: Glasses Review of Systems Review of Systems: The patient denies palpitations, cough, lower extremity swelling, sore throat, fevers, chills, sweats, weight change, fatigue, nausea, vomiting, diarrhea , constipation, abdominal pain, pelvic pain, blood in urine or stool, dysuria, urinary frequency or urgency, lightheadedness, dizziness, headache, memory loss, loss of consciousness, rash, abnormal bruising or bleeding, imbalance, focal or generalized weakness, numbness or tingling in arms or legs, generalized arthralgias or myalgias, back or neck pain, or night sweats. The review of systems is otherwise negative other than for that already noted above, and at least 10 systems have been reviewed. Physical Exam Physical Exam: The patient is awake, alert and oriented 3, well developed and well nourished, normocephalic and atraumatic, lying in bed and in no acute distress. HEENT--PERRL, EOMI, mucous membranes and oropharynx dry. Neck--supple. No JVD. No bruits. Thyroid normal, trachea midline, no adenopathy. Heart--normal S1 and S2. No murmurs, rubs or gallops. Lungs--clear bilaterally, no respiratory distress, no accessory muscle use. Abdomen--normal bowel sounds and soft. Nontender. Nondistended, no hernias or masses, no organomegaly. Extremities--no cyanosis or clubbing. No edema Dermatologic--normal skin turgor, normal color, no abnormal lymph nodes, no rash. Neurologic--cranial nerves II through XII grossly intact. Rheumatologic--normal range of motion. Psychiatric--normal affect. Results & Data Results & Data ([facility]) Vital Signs (Past 12 Hours) Vital Signs Temp Pulse Pulse Resp BP BP Pulse Ox 10/17/20 19:27 61 18 128/73 95 10/17/20 18:47 97.9 F 63 16 128/73 95 10/17/20 18:43 65 24 128/73 95 Laboratory Results Laboratory Results WBC 5.93 K/uL (4.8-10.8) 10/17/20 18:40 RBC 4.76 M/uL (4.7-6.1) 10/17/20 18:40 Hgb 14.5 g/dL (14.0-18.0) 10/17/20 18:40 Hct 43.4 % (42-52) 10/17/20 18:40 MCV 91.2 fL (80-100) 10/17/20 18:40 MCH 30.5 pg (25-34) 10/17/20 18:40 MCHC 33.4 g/dL (32-36) 10/17/20 18:40 RDW Std Deviation 55.8 fL (36.4-46.3) H 10/17/20 18:40 RDW Coeff of Swetha 16.6 % (11.5-14.5) H 10/17/20 18:40 Plt Count 210 K/uL (130-400) 10/17/20 18:40 MPV 10.7 fL (7.4-10.4) H 10/17/20 18:40 Immature Gran % (Auto) 0.2 % 10/17/20 18:40 Neut % (Auto) 61.7 % 10/17/20 18:40 Lymph % (Auto) 27.5 % 10/17/20 18:40 [place] % (Auto) 6.7 % 10/17/20 18:40 Eos % (Auto) 3.7 % 10/17/20 18:40 Baso % (Auto) 0.2 % 10/17/20 18:40 Neut # (Auto) 3.66 K/uL (1.4-6.5) 10/17/20 18:40 Lymph # (Auto) 1.63 K/uL (1.2-3.4) 10/17/20 18:40 [place] # (Auto) 0.40 K/uL (0.11-0.59) 10/17/20 18:40 Eos # (Auto) 0.22 K/uL (0-0.5) 10/17/20 18:40 Baso # (Auto) 0.01 K/uL (0-0.2) 10/17/20 18:40 Immature Gran # (Auto) 0.01 K/uL (0.00-0.02) 10/17/20 18:40 APTT 26.5 Seconds (21.0-31.0) 10/17/20 18:40 PTT Ratio 1.0 10/17/20 18:40 Sodium 141 mmol/L (136-145) 10/17/20 19:08 Potassium 3.9 mmol/L (3.5-5.1) 10/17/20 19:08 Chloride 111 mmol/L (98-107) H 10/17/20 19:08 Carbon Dioxide 26 mmol/L (21-32) 10/17/20 19:08 Anion Gap 4.0 (3-11) 10/17/20 19:08 BUN 17 mg/dl (7-18) 10/17/20 19:08 Creatinine 0.87 mg/dl (0.6-1.4) 10/17/20 19:08 Est Cr Clr Drug Dosing 85.6 ml/min 10/17/20 19:08 Est GFR ( Amer) 99.2 ml/min 10/17/20 19:08 Est GFR (Non-Af Amer) 85.6 ml/min 10/17/20 19:08 BUN/Creatinine Ratio 20.0 (10-20) 10/17/20 19:08 Glucose 104 mg/dl (70-99) H 10/17/20 19:08 Calcium 8.5 mg/dl (8.5-10.1) 10/17/20 19:08 Total Bilirubin 0.5 mg/dl (0.2-1) 10/17/20 19:08 AST 15 U/L (15-37) 10/17/20 19:08 ALT 19 U/L (12-78) 10/17/20 19:08 Alkaline Phosphatase 111 U/L (45-117) 10/17/20 19:08 Troponin I < 0.015 ng/ml (0-0.045) 10/17/20 19:08 Total Protein 7.5 gm/dl (6.4-8.2) 10/17/20 19:08 Albumin 3.3 gm/dl (3.4-5.0) L 10/17/20 19:08 Globulin 4.2 gm/dl (2.5-4.0) H 10/17/20 19:08 Albumin/Globulin Ratio 0.8 (0.9-2) L 10/17/20 19:08 Lipase 126 U/L (73-393) 10/17/20 19:08 Specimen Hemolysis 10/17/20 19:08 COVID-19 Eval Order Covid19 at [facility] 10/17/20 19:34 SARS-CoV-2 (PCR) NEGATIVE (Negative) 10/17/20 19:34 Impressions Chest X-Ray 10/17/20 18:54 XR chest 1V portable CLINICAL HISTORY: Atypical chest pain COMPARISON STUDY: 12/04/2019 FINDINGS: The heart is at the upper limits of normal in size. There is no failure. There is no focal pulmonary consolidation. There are no pleural effusions. There is a reverse total left shoulder arthroplasty.[No pneumothorax is visualized. There is an old left clavicular fracture. IMPRESSION: No active disease in the chest. ACT 112: Negative or not required by law. Electronically signed by: Frank Freedman M.D. 10/17/2020 7:09 PM Code Status & VTE Plan Code Status Full code VTE Prophylaxis Plan VTE Prophylaxis will be ordered: Yes PG Care Time/CCT Total # of Minutes Spent Total Time Spent with Patient: Total time spent is greater than 50% in coordination of care (as documented) at patient's floor/unit and/or counseling patient: Coding Level of Care Code INT OBSERVATION CARE 70M LVL 3 Diagnoses Substernal chest pain relieved by nitroglycerin R07.2 HLD (hyperlipidemia) E78.5 Dysphagia R13.10 Hiatal hernia K44.9
[2020-10-18] MEDS ORDERED: ONDANSETRON INJ 2 MG/ML 2 ML VIAL IV PRN (00:05)
[2020-10-18] MEDS ORDERED: ACETAMINOPHEN 1000 MG/100 ML IV IV PRN (00:05)
[2020-10-18] MEDS ORDERED: NITROGLYCERIN SL 0.4 MG/TAB TAB SL PRN (00:05)
[2020-10-18] MEDS: FAMOTIDINE 20 MG in SYRINGE 3 ML IV SCH ×3 (00:46→22:12)
[2020-10-18] MEDS: NSS + 20MEQ KCL 20 MEQ/1,000 ML BAG IV SCH ×3 (00:46→17:34)
[2020-10-18 06:03] LABS: Basophils # (auto) 0.01 K/uL (0-0.2); Basophils % (auto) 0.2 %; Eosinophils # (auto) 0.19 K/uL (0-0.5); Eosinophils % (auto) 3.8 %; Hematocrit (blood only) 40.3 % (42-52); Hemoglobin 13.4 g/dL (14.0-18.0); Immature Granulocytes # (auto) 0.01 K/uL (0.00-0.02); Immature Granulocytes % (auto) 0.2 %; Lymphocytes # (auto) 1.07 K/uL (1.2-3.4); Lymphocytes % (auto) 21.3 %; Mean Corpuscular Hemoglobin 30.2 pg (25-34); Mean Corpuscular Hgb Conc 33.3 g/dL (32-36); Mean Platelet Volume 9.7 fL (7.4-10.4); Monocytes # (auto) 0.44 K/uL (0.11-0.59); Monocytes % (auto) 8.8 %; Neutrophils % (auto) 65.7 %; Platelet Count 180 K/uL (130-400); RDW Coefficient of Variation 16.8 % (11.5-14.5); RDW Standard Deviation 56.3 fL (36.4-46.3); Red Blood Count 4.43 M/uL (4.7-6.1); White Blood Count 5.02 K/uL (4.8-10.8)
[2020-10-18 06:08] LABS: Partial Thromboplastin Time 27.3 Seconds (21.0-31.0); Prothrombin Time 10.3 Seconds (9.0-12.0)
[2020-10-18 06:33] LABS: Albumin Level 3.3 gm/dl (3.4-5.0); BUN Creatinine Ratio 20.9 (10-20); Calcium 8.5 mg/dl (8.5-10.1); Creatinine Clr Calc Pharmacy 89.4 ml/min; Est GFR (African American) 104.9 ml/min; Est GFR (Non-African American) 90.5 ml/min; Magnesium 2.3 mg/dl (1.8-2.4)
[2020-10-18 06:35] LABS: Albumin Globulin Ratio 0.9 (0.9-2); Bilirubin,Total 0.8 mg/dl (0.2-1); Globulin 3.8 gm/dl (2.5-4.0); Total Protein 7.1 gm/dl (6.4-8.2)
--- NOTE | 2020-10-18 12:39 | XCELERA ---
[id number]
--- NOTE | 2020-10-18 17:01 | Electrocardiogram Report ---
Test Reason : Blood Pressure : / mmHG Vent. Rate : 059 BPM Atrial Rate : 059 BPM P-R Int : 102 ms QRS Dur : 130 ms QT Int : 446 ms P-R-T Axes : 008 -47 -01 degrees QTc Int : 441 ms Poor data quality, interpretation may be adversely affected Sinus bradycardia with Premature atrial complexes Right bundle branch block Left anterior fascicular block Bifascicular block Abnormal ECG When compared with ECG of 25-FEB-2019 07:03, Left anterior fascicular block is now Present Confirmed by Michael Rosario ([id number]) on 10/18/2020 5:01:16 PM Referred By: REFERRED SELF Confirmed By:Nahum Rosario
--- NOTE | 2020-10-18 17:07 | Gastrointestinal Consultation ---
Date of Consultation October 18, 2020 Assessment & Plan (1) Dysphagia: Pt tolerating po now and should be cleared for EGD from cardiac standpoint. Will tentatively put patient on for EGD with prn dilatation with Dr Glez who is covering for us beginnign at 0800 tomorrow am. Procedure and risks explained to patient which include but not limited to medication reaction, bleeding, perforation, aspiration, and missed lesions. History of Present Illness Reason for Consultation: dysphagia Requesting Physician: DR Srinivasan Attending Physician: Dayan Bunch MD History of Present Illness Pt seen last by in the office for constipaiton and wt loss that was improving ( reviewed my 12/2019 note). Reviewed colonsocopy report form 10/2019 polyps, diverticuosis and redundant colon with repeat colo [address]. [address]ed [address] a/p from 04/2019 renal cysts. Pt states hx of gerd of PPI but has not neede it for some time.No dysphagia history until last pm after eating a sandwhich he could not handle liquids to drink or even his saliva. He had chest pain as well. CBC WBC elevatd but improved today. PT/PTT ok, CMP and lipase ok. Cardiac workup in progress. He states he tolerated some ice chips today and I had him drink some water and that went down fine. with patient and stated patients son had esophageal cancer. Allergies Allergy/AdvReac Type Severity Reaction Status Date / Time sulindac Allergy Unknown Verified 10/17/20 19:46 Home Medications Medication Instructions Recorded Confirmed Type cholecalciferol (vitamin D3) 25 1,000 unit PO QPM 06/15/18 10/17/20 History mcg (1,000 unit) capsule gabapentin 400 mg capsule 400 mg PO TID 06/15/18 10/17/20 History loratadine 10 mg tablet 10 mg PO QPM 06/15/18 10/17/20 History pravastatin 10 mg tablet 10 mg PO Q48H 06/15/18 10/17/20 History nitroglycerin 0.4 mg sublingual 0.4 mg SUBLINGUAL UD PRN 01/26/19 10/17/20 History tablet oxycodone 5 mg tablet 5 mg PO Q4H PRN #30 tab 02/25/19 10/17/20 Rx acetaminophen 500 mg tablet 1,000 mg PO Q6 PRN 10/17/20 10/17/20 History (Tylenol Extra Strength) aspirin 81 mg tablet,delayed 81 mg PO Q OTHER DAY 10/17/20 10/17/20 History release Patient History Medical History Arthritis Asthma no recent issues/no inhaler Bifascicular block Degenerative disc disease Hiatal hernia History of kidney stones History of prostate cancer s/p prostatectomy HLD (hyperlipidemia) [place] (hard of hearing) Male erectile disorder Nocturia Obesity Osteoarthritis Poor urinary stream Urinary frequency Surgical History History of colonoscopy History of open reduction and internal fixation (ORIF) procedure LLE History of prostate biopsy History of prostatectomy History of tonsillectomy S/P appendectomy Family History Mother Diabetes Son Esophageal cancer Other Heart disease Social History Smoking Status: Never smoker Years Smoked: 15; Number of Years Since Quit: 4; Second Hand Exposure: No; Hx Alcohol Use: No Hx Substance Use: No Preferred Language: Albanian Communication Ability: Effective 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 Physical Exam Constitutional: WD/WN, vitals as above Eyes: PERRL, conjunctivae normal, anicteric sclerae ENMT: external ears and nose normal. Neck: normal visual inspection and trachea midline Respiratory: normal respiratory effort, lungs clear to auscultation Gastrointestinal (Abdomen): normal bowel sounds, soft, nontender, no hepatosplenomegaly Musculoskeletal: no cyanosis or clubbing, extremities motor strength 5/5 Neurologic: PERRL, EOMI, accommodation nl, no face palsy, no dysarthria Psychiatric: A+Ox3, euthymic affect Results & Data ([facility]) Vital Signs (Past 12 Hours) Vital Signs Temp Pulse Pulse Resp BP Pulse Ox 10/18/20 15:44 36.6 C 55 L 18 144/75 H 97 10/18/20 12:00 36.6 C 59 L 10 L 142/79 H 97 10/18/20 08:00 58 L 10/18/20 07:59 36.7 C 63 18 130/80 98 10/18/20 05:23 36.7 C 54 L 16 134/71 96
--- NOTE | 2020-10-18 17:08 | Electrocardiogram Report ---
Test Reason : Blood Pressure : / mmHG Vent. Rate : 056 BPM Atrial Rate : 056 BPM P-R Int : 148 ms QRS Dur : 132 ms QT Int : 458 ms P-R-T Axes : 046 -43 -04 degrees QTc Int : 441 ms Sinus bradycardia with Premature atrial complexes in a pattern of bigeminy Left axis deviation Right bundle branch block Abnormal ECG When compared with ECG of 17-OCT-2020 19:06, (unconfirmed) No significant change was found Confirmed by Michael Rosario ([id number]) on 10/18/2020 5:07:55 PM Referred By: REFERRED SELF Confirmed By:Nahum Rosario
--- NOTE | 2020-10-18 17:47 | Hospitalist Progress Note ---
Date of Service October 18, 2020 Assessment & Plan (1) Substernal chest pain relieved by nitroglycerin: Plan: Secondary to food bolus, relieved with NTG Serial troponin negative, ECHO without WMAs, tele with PACs, sinus jodie. ECG with new LAFB intermittently but no ischemic changes. Is normally quite active without any angina. No need for stress test Appreciate GI consult-plan for EGD with possible dilation tomorrow continue IV pepcid -clears diet for now and NPO after midnight for EGD -ok to transfer off tele -dc IVFs (2) HLD (hyperlipidemia): Plan: restart home statin (3) Dysphagia: Plan: as above (4) Hiatal hernia: Plan: continue Pepcid (5) Neuropathy: Plan: restart home gabapentin, tylenol prn (6) DVT prophylaxis: Plan: SCDs Dispo-continued stay for EGD tomorrow, transfer to med/surg Admission and Anticipated Discharge Date Admission Date: October 17, 2020 Subjective Pt has not had any further chest pain since he received NTG yesterday evening. He just had clear liquids for dinner and they went down well, no nausea. No SOB, headaches, lightheadedness. Has had issues with odynophagia in the past only with big gulps of gatorade, but never with solid foods. No trouble with constipation or diarrhea, no abd pains. Normally is active and has no chest pains or SOB. Tele with SB, PACs, rates 50s Review of Systems Review of Systems: 14 ROS negative except as noted in the HPI. Physical Exam Constitutional: WD/WN, vitals as above Eyes: PERRL, conjunctivae normal, anicteric sclerae ENMT: external ear and nose normal, oropharynx normal Neck: trachea midline, no thyromegaly Respiratory: normal respiratory effort, lungs clear to auscultation Cardiovascular: RRR, no murmur, no edema Chest (Breasts): Chest: normal inspection of chest Gastrointestinal (Abdomen): normal bowel sounds, soft, nontender, no hepatosplenomegaly Musculoskeletal: Extremities: extremities normal to inspection; no cyanosis and no clubbing Skin: no rashes, warm and dry Neurologic: moves all extremities and awake; no focal motor deficits Psychiatric: A+Ox3, euthymic affect Lymphatic: no lymphedema Results & Data Results & Data ([facility]) Vital Signs (Past 12 Hours) Vital Signs Temp Pulse Pulse Resp BP Pulse Ox 10/18/20 15:44 36.6 C 55 L 18 144/75 H 97 10/18/20 12:00 36.6 C 59 L 10 L 142/79 H 97 10/18/20 08:00 58 L 10/18/20 07:59 36.7 C 63 18 130/80 98 Laboratory Results 10/18/20 10/18/20 10/18/20 Range/Units 16:31 07:56 05:35 WBC (4.8-10.8) K/uL RBC (4.7-6.1) M/uL Hgb (14.0-18.0) g/dL Hct (42-52) % MCV (80-100) fL MCH (25-34) pg MCHC (32-36) g/dL RDW Std Deviation (36.4-46.3) fL RDW Coeff of Swetha (11.5-14.5) % Plt Count (130-400) K/uL MPV (7.4-10.4) fL Immature Gran % (Auto) % Neut % (Auto) % Lymph % (Auto) % Dolores % (Auto) % Eos % (Auto) % Baso % (Auto) % Neut # (Auto) (1.4-6.5) K/uL Lymph # (Auto) (1.2-3.4) K/uL Dolores # (Auto) (0.11-0.59) K/uL Eos # (Auto) (0-0.5) K/uL Baso # (Auto) (0-0.2) K/uL Immature Gran # (Auto) (0.00-0.02) K/uL PT (9.0-12.0) Seconds INR (0.9-1.1) APTT (21.0-31.0) Seconds PTT Ratio Sodium 140 (136-145) mmol/L Potassium 4.0 (3.5-5.1) mmol/L Chloride 112 H (98-107) mmol/L Carbon Dioxide 28 (21-32) mmol/L Anion Gap 0 L (3-11) BUN 16 (7-18) mg/dl Creatinine 0.76 (0.6-1.4) mg/dl Est Cr Clr Drug Dosing 89.4 ml/min Est GFR ( Amer) 104.9 ml/min Est GFR (Non-Af Amer) 90.5 ml/min BUN/Creatinine Ratio 20.9 H (10-20) Glucose 105 H (70-99) mg/dl Calcium 8.5 (8.5-10.1) mg/dl Magnesium 2.3 (1.8-2.4) mg/dl Total Bilirubin 0.8 (0.2-1) mg/dl AST 14 L (15-37) U/L ALT 16 (12-78) U/L Alkaline Phosphatase 99 (45-117) U/L Troponin I < 0.015 < 0.015 (0-0.045) ng/ml Total Protein 7.1 (6.4-8.2) gm/dl Albumin 3.3 L (3.4-5.0) gm/dl Globulin 3.8 (2.5-4.0) gm/dl Albumin/Globulin Ratio 0.9 (0.9-2) Lipase (73-393) U/L Specimen Hemolysis COVID-19 Eval Order SARS-CoV-2 (PCR) (Negative) 10/18/20 10/18/20 10/18/20 Range/Units 05:35 05:35 00:19 WBC 5.02 (4.8-10.8) K/uL RBC 4.43 L (4.7-6.1) M/uL Hgb 13.4 L (14.0-18.0) g/dL Hct 40.3 L (42-52) % MCV 91.0 (80-100) fL MCH 30.2 (25-34) pg MCHC 33.3 (32-36) g/dL RDW Std Deviation 56.3 H (36.4-46.3) fL RDW Coeff of Swetha 16.8 H (11.5-14.5) % Plt Count 180 (130-400) K/uL MPV 9.7 (7.4-10.4) fL Immature Gran % (Auto) 0.2 % Neut % (Auto) 65.7 % Lymph % (Auto) 21.3 % Dolores % (Auto) 8.8 % Eos % (Auto) 3.8 % Baso % (Auto) 0.2 % Neut # (Auto) 3.30 (1.4-6.5) K/uL Lymph # (Auto) 1.07 L (1.2-3.4) K/uL Dolores # (Auto) 0.44 (0.11-0.59) K/uL Eos # (Auto) 0.19 (0-0.5) K/uL Baso # (Auto) 0.01 (0-0.2) K/uL Immature Gran # (Auto) 0.01 (0.00-0.02) K/uL PT 10.3 (9.0-12.0) Seconds INR 1.0 (0.9-1.1) APTT 27.3 (21.0-31.0) Seconds PTT Ratio 1.0 Sodium (136-145) mmol/L Potassium (3.5-5.1) mmol/L Chloride (98-107) mmol/L Carbon Dioxide (21-32) mmol/L Anion Gap (3-11) BUN (7-18) mg/dl Creatinine (0.6-1.4) mg/dl Est Cr Clr Drug Dosing ml/min Est GFR ( Amer) ml/min Est GFR (Non-Af Amer) ml/min BUN/Creatinine Ratio (10-20) Glucose (70-99) mg/dl Calcium (8.5-10.1) mg/dl Magnesium (1.8-2.4) mg/dl Total Bilirubin (0.2-1) mg/dl AST (15-37) U/L ALT (12-78) U/L Alkaline Phosphatase (45-117) U/L Troponin I < 0.015 (0-0.045) ng/ml Total Protein (6.4-8.2) gm/dl Albumin (3.4-5.0) gm/dl Globulin (2.5-4.0) gm/dl Albumin/Globulin Ratio (0.9-2) Lipase (73-393) U/L Specimen Hemolysis COVID-19 Eval Order SARS-CoV-2 (PCR) (Negative) 10/17/20 10/17/20 10/17/20 Range/Units 19:34 19:34 19:08 WBC (4.8-10.8) K/uL RBC (4.7-6.1) M/uL Hgb (14.0-18.0) g/dL Hct (42-52) % MCV (80-100) fL MCH (25-34) pg MCHC (32-36) g/dL RDW Std Deviation (36.4-46.3) fL RDW Coeff of Swetha (11.5-14.5) % Plt Count (130-400) K/uL MPV (7.4-10.4) fL Immature Gran % (Auto) % Neut % (Auto) % Lymph % (Auto) % Dolores % (Auto) % Eos % (Auto) % Baso % (Auto) % Neut # (Auto) (1.4-6.5) K/uL Lymph # (Auto) (1.2-3.4) K/uL Dolores # (Auto) (0.11-0.59) K/uL Eos # (Auto) (0-0.5) K/uL Baso # (Auto) (0-0.2) K/uL Immature Gran # (Auto) (0.00-0.02) K/uL PT (9.0-12.0) Seconds INR (0.9-1.1) APTT (21.0-31.0) Seconds PTT Ratio Sodium 141 (136-145) mmol/L Potassium 3.9 (3.5-5.1) mmol/L Chloride 111 H (98-107) mmol/L Carbon Dioxide 26 (21-32) mmol/L Anion Gap 4.0 (3-11) BUN 17 (7-18) mg/dl Creatinine 0.87 (0.6-1.4) mg/dl Est Cr Clr Drug Dosing 85.6 ml/min Est GFR ( Amer) 99.2 ml/min Est GFR (Non-Af Amer) 85.6 ml/min BUN/Creatinine Ratio 20.0 (10-20) Glucose 104 H (70-99) mg/dl Calcium 8.5 (8.5-10.1) mg/dl Magnesium (1.8-2.4) mg/dl Total Bilirubin 0.5 (0.2-1) mg/dl AST 15 (15-37) U/L ALT 19 (12-78) U/L Alkaline Phosphatase 111 (45-117) U/L Troponin I < 0.015 (0-0.045) ng/ml Total Protein 7.5 (6.4-8.2) gm/dl Albumin 3.3 L (3.4-5.0) gm/dl Globulin 4.2 H (2.5-4.0) gm/dl Albumin/Globulin Ratio 0.8 L (0.9-2) Lipase 126 (73-393) U/L Specimen Hemolysis COVID-19 Eval Order Covid19 at [facility] SARS-CoV-2 (PCR) NEGATIVE (Negative) 10/17/20 10/17/20 Range/Units 18:40 18:40 WBC 5.93 (4.8-10.8) K/uL RBC 4.76 (4.7-6.1) M/uL Hgb 14.5 (14.0-18.0) g/dL Hct 43.4 (42-52) % MCV 91.2 (80-100) fL MCH 30.5 (25-34) pg MCHC 33.4 (32-36) g/dL RDW Std Deviation 55.8 H (36.4-46.3) fL RDW Coeff of Swetha 16.6 H (11.5-14.5) % Plt Count 210 (130-400) K/uL MPV 10.7 H (7.4-10.4) fL Immature Gran % (Auto) 0.2 % Neut % (Auto) 61.7 % Lymph % (Auto) 27.5 % Dolores % (Auto) 6.7 % Eos % (Auto) 3.7 % Baso % (Auto) 0.2 % Neut # (Auto) 3.66 (1.4-6.5) K/uL Lymph # (Auto) 1.63 (1.2-3.4) K/uL Dolores # (Auto) 0.40 (0.11-0.59) K/uL Eos # (Auto) 0.22 (0-0.5) K/uL Baso # (Auto) 0.01 (0-0.2) K/uL Immature Gran # (Auto) 0.01 (0.00-0.02) K/uL PT (9.0-12.0) Seconds INR (0.9-1.1) APTT 26.5 (21.0-31.0) Seconds PTT Ratio 1.0 Sodium (136-145) mmol/L Potassium (3.5-5.1) mmol/L Chloride (98-107) mmol/L Carbon Dioxide (21-32) mmol/L Anion Gap (3-11) BUN (7-18) mg/dl Creatinine (0.6-1.4) mg/dl Est Cr Clr Drug Dosing ml/min Est GFR ( Amer) ml/min Est GFR (Non-Af Amer) ml/min BUN/Creatinine Ratio (10-20) Glucose (70-99) mg/dl Calcium (8.5-10.1) mg/dl Magnesium (1.8-2.4) mg/dl Total Bilirubin (0.2-1) mg/dl AST (15-37) U/L ALT (12-78) U/L Alkaline Phosphatase (45-117) U/L Troponin I (0-0.045) ng/ml Total Protein (6.4-8.2) gm/dl Albumin (3.4-5.0) gm/dl Globulin (2.5-4.0) gm/dl Albumin/Globulin Ratio (0.9-2) Lipase (73-393) U/L Specimen Hemolysis COVID-19 Eval Order SARS-CoV-2 (PCR) (Negative) Diagnostic Findings ECHO mild LVH, grade 2 diastolic dysfunction PG Care Time/CCT Total # of Minutes Spent Total Time Spent with Patient: Total time spent is greater than 50% in coordination of care (as documented) at patient's floor/unit and/or counseling patient: Coding Level of Care Code 94386 Subseq Hosp Care Lvl 2 Diagnoses Substernal chest pain relieved by nitroglycerin R07.2 HLD (hyperlipidemia) E78.5 Dysphagia R13.10 Hiatal hernia K44.9 Neuropathy G62.9 DVT prophylaxis Z29.9
[2020-10-18] MEDS ORDERED: CHOLECALCIFEROL 1,000 UNITS 25 MCG TAB PO SCH (21:26)
[2020-10-18] MEDS ORDERED: PRAVASTATIN SOD 10 MG TAB PO SCH (21:26)
[2020-10-18] MEDS ORDERED: LORATADINE 10 MG TAB PO SCH (21:26)
[2020-10-18] MEDS ORDERED: ACETAMINOPHEN 500 MG TAB PO PRN (21:31)
[2020-10-18] MEDS: GABAPENTIN 400 MG CAP PO SCH (22:10)
[2020-10-19 07:21] LABS: Basophils # (auto) 0.02 K/uL (0-0.2); Basophils % (auto) 0.4 %; Eosinophils # (auto) 0.18 K/uL (0-0.5); Eosinophils % (auto) 3.2 %; Hematocrit (blood only) 42.1 % (42-52); Hemoglobin 13.7 g/dL (14.0-18.0); Immature Granulocytes # (auto) 0.01 K/uL (0.00-0.02); Immature Granulocytes % (auto) 0.2 %; Lymphocytes # (auto) 1.32 K/uL (1.2-3.4); Lymphocytes % (auto) 23.6 %; Mean Corpuscular Hemoglobin 30.2 pg (25-34); Mean Corpuscular Hgb Conc 32.5 g/dL (32-36); Mean Corpuscular Volume 92.7 fL (80-100); Mean Platelet Volume 10.1 fL (7.4-10.4); Monocytes # (auto) 0.38 K/uL (0.11-0.59); Monocytes % (auto) 6.8 %; Neutrophils # (auto) 3.68 K/uL (1.4-6.5); Neutrophils % (auto) 65.8 %; Platelet Count 216 K/uL (130-400); RDW Coefficient of Variation 16.5 % (11.5-14.5); RDW Standard Deviation 56.8 fL (36.4-46.3); Red Blood Count 4.54 M/uL (4.7-6.1); White Blood Count 5.59 K/uL (4.8-10.8)
[2020-10-19 07:52] LABS: Albumin Level 3.4 gm/dl (3.4-5.0); BUN Creatinine Ratio 15.4 (10-20); Calcium 8.6 mg/dl (8.5-10.1); Creatinine Clr Calc Pharmacy 88.6 ml/min; Est GFR (African American) 101.2 ml/min; Est GFR (Non-African American) 87.3 ml/min; Potassium 3.9 mmol/L (3.5-5.1)
[2020-10-19 07:55] LABS: Albumin Globulin Ratio 0.9 (0.9-2); Bilirubin,Total 1.4 mg/dl (0.2-1); Globulin 3.7 gm/dl (2.5-4.0); Total Protein 7.1 gm/dl (6.4-8.2)
--- NOTE | 2020-10-19 08:20 | History & Physical Bridge Note ---
Date of Service October 19, 2020 History & Physical Bridge Note I have examined the patient, reviewed the History & Physical and in the interval since the performance of the History & Physical I have noted the following changes of clinical significance: no changes noted Proceed with EGD today. risks/benefits and procedure discussed with patient, who agrees to proceed
--- NOTE | 2020-10-19 09:02 | Anesthesiology Consultation ---
Date of Service October 19, 2020 Assessment & Plan (1) Encounter for pre-operative examination: Chart Review Chart Review: Acceptable Risk for Surgery and Patient NOT seen in Pre Admission Testing Consults Requested none Proposed Anesthesia Risk / Benefits Reviewed With: PT / POA / Parent / Guardian, Accepts Plan and Informed Consent Obtained History Surgery Operation Date: 10/19/20 16:45 Proposed Procedures p Esophagogastroduodenoscopy Dr. Newton Glez MD Height/Weight Height: 5 ft 10 in Weight: 88 kg Allergies Allergy/AdvReac Type Severity Reaction Status Date / Time sulindac Allergy Unknown Verified 10/17/20 19:46 Medications Home Medications Medication Instructions Recorded Confirmed Last Taken cholecalciferol (vitamin D3) 25 1,000 unit PO QPM 06/15/18 10/17/20 02/24/19 22:00 mcg (1,000 unit) capsule gabapentin 400 mg capsule 400 mg PO TID 06/15/18 10/17/20 02/24/19 22:00 loratadine 10 mg tablet 10 mg PO QPM 06/15/18 10/17/20 02/24/19 22:00 pravastatin 10 mg tablet 10 mg PO Q48H 06/15/18 10/17/20 02/23/19 22:00 nitroglycerin 0.4 mg sublingual 0.4 mg SUBLINGUAL UD PRN 01/26/19 10/17/20 Unknown tablet oxycodone 5 mg tablet 5 mg PO Q4H PRN #30 tab 02/25/19 10/17/20 Unknown acetaminophen 500 mg tablet 1,000 mg PO Q6 PRN 10/17/20 10/17/20 Unknown (Tylenol Extra Strength) aspirin 81 mg tablet,delayed 81 mg PO Q OTHER DAY 10/17/20 10/17/20 Unknown release Active Medications Generic Name Dose Route Start Last Admin Trade Name Freq PRN Reason Stop Dose Admin Gabapentin 400 mg 10/18/20 21:26 10/18/20 22:10 Gabapentin 400 Mg Cap PO 11/17/20 21:25 400 mg TID JOVANNA Administration Famotidine 20 mg/ Syringe 5 mls @ 2.5 mls/min 10/17/20 23:15 10/18/20 22:12 IV 11/16/20 23:14 2.5 mls/min Q12H JOVANNA Administration Loratadine 10 mg 10/18/20 21:26 10/18/20 22:10 Loratadine 10 Mg Tab PO 11/17/20 21:25 10 mg QPM JOVANNA Administration Pravastatin Sodium 10 mg 10/18/20 21:26 10/18/20 22:10 Pravastatin Sod 10 Mg Tab PO 11/17/20 21:25 10 mg Q48H JOVANNA Administration Vitamin D 1,000 units 10/18/20 21:26 10/18/20 22:10 Cholecalciferol 1,000 Units 25 Mcg Tab PO 11/17/20 21:25 1,000 units QPM JOVANNA Administration NPO Date Last Intake of Fluids: 10/18/20 Time Last Intake of Fluids: 23:59 Date Last Intake of Solids: 10/18/20 Time Last Intake of Solids: 23:59 Past Medical History Medical History Arthritis Asthma no recent issues/no inhaler Bifascicular block Degenerative disc disease Hiatal hernia History of kidney stones History of prostate cancer s/p prostatectomy HLD (hyperlipidemia) [place] (hard of hearing) Male erectile disorder Neuropathy Nocturia Obesity Osteoarthritis Poor urinary stream Urinary frequency Exercise / Class Metabolic Activity II 4-5 Yardwork/Stairs/Walk up hill Past Family History Family History Mother Diabetes Son Esophageal cancer Other Heart disease Past Surgical History Surgical History History of colonoscopy History of open reduction and internal fixation (ORIF) procedure LLE History of prostate biopsy History of prostatectomy History of tonsillectomy S/P appendectomy Past Anesthesia History No Hx of Anesthesia Complications History of PONV No Hx of PONV and No Hx of Motion Sickness Social History Smoking Status: Never smoker tobacco type: cigarettes Hx Alcohol Use: No alcohol intake frequency: holidays/special occasions only Hx Substance Use: No substance use type: does not use Physical Exam Vital Signs Last Vital Signs Temp 36.8 C 10/19/20 07:47 Pulse 75 10/19/20 07:47 Resp 20 10/19/20 07:47 BP 125/81 10/19/20 07:47 Pulse Ox 95 10/19/20 07:47 ENMT Mouth: no dentition abnormality Thyromental Distance: > or= 3.5 Finger Breadths Mallampati Class: II Neck normal visual inspection Respiratory normal respiratory effort Auscultation: lungs clear to auscultation bilaterally Cardiovascular Rate/Rhythm: regular rate and regular rhythm Psychiatric Orientation: alert and oriented x 3 Testing Laboratory Results 10/19/20 06:54 10/19/20 06:54 PT 10.3 Seconds (9.0-12.0) 10/18/20 05:35 INR 1.0 (0.9-1.1) 10/18/20 05:35 APTT 27.3 Seconds (21.0-31.0) 10/18/20 05:35
[2020-10-19] MEDS: GABAPENTIN 400 MG CAP PO SCH ×2 (10:01→14:09)
[2020-10-19] MEDS ORDERED: PROPOFOL IV EMULSION 10 MG/ML 20 ML VIAL IV ONE (12:36)
[2020-10-19] MEDS ORDERED: LIDOCAINE 2% 2 ML VIAL/AMP(20MG/ML) INFIL ONE (12:36)
--- NOTE | 2020-10-19 12:54 | GI REPORT ---
Patient Name: José Miguel Villagomez Procedure Date: 10/19/2020 12:11 PM Date of : 1945 Admit Type: Inpatient Age: 74 Gender: Male Attending MD: Smith Glez MD Procedure: Upper GI endoscopy Providers: Smith Glez MD Referring MD: Shiva He Indications: Dysphagia Medicines: Monitored Anesthesia Care Complications: No immediate complications. Estimated blood loss: None. Estimated Blood Loss: Estimated blood loss: none. Procedure: Pre-Anesthesia Assessment: - Prior Anticoagulants: The patient has taken no previous anticoagulant or antiplatelet agents. - ASA Grade Assessment: II - A patient with mild systemic disease. After obtaining informed consent, the endoscope was passed under direct vision. Throughout the procedure, the patient's blood pressure, pulse, and oxygen saturations were monitored continuously. The Endoscope was introduced through the mouth, and advanced to the second part of duodenum. The upper GI endoscopy was accomplished without difficulty. The patient tolerated the procedure well. Findings: Mucosal changes including ringed esophagus were found in the upper third of the esophagus and in the middle third of the esophagus. Biopsies were taken with a cold forceps for histology. Estimated blood loss: none. A guidewire was placed and the scope was withdrawn. Dilation was performed with a Savary dilator with no resistance at 48 Fr. The dilation site was examined following endoscope reinsertion and showed mild mucosal disruption. Estimated blood loss: none. A medium-sized hiatal hernia was present. Diffuse mild inflammation characterized by erythema was found in the stomach. Biopsies were taken with a cold forceps for Helicobacter pylori testing. Estimated blood loss: none. Diffuse mildly erythematous mucosa without active bleeding and with no stigmata of bleeding was found in the duodenal bulb. The second portion of the duodenum was normal. Impression: - Esophageal mucosal changes suggestive of eosinophilic esophagitis. Biopsied. Dilated. - Medium-sized hiatal hernia. - Gastritis. Biopsied. - Erythematous duodenopathy. - Normal second portion of the duodenum. Recommendation: - Await pathology results. - Soft diet today. Advance as tolerated thereafter -start PPI protonix 40 mg daily - [facility]. Can discharge later today if stable. -follow up with [facility] in 1-2 weeks. Smith Glez MD 10/19/2020 12:53:57 PM This report has been signed electronically. Note Initiated On: 10/19/2020 12:11 PM Number of Addenda: 0 I attest to the content of the Intraoperative Record and orders documented therein, exceptions below {[id number]}
[2020-10-19] MEDS ORDERED: PANTOprazole 40 MG TAB PO SCH (13:15)
[2020-10-19] MEDS: FAMOTIDINE 20 MG in SYRINGE 3 ML IV SCH (14:46)
--- NOTE | 2020-10-19 14:58 | Anesthesiology Progress Note ---
Date of Service October 19, 2020 Anesthesia Post Procedure Vital Signs Vital Signs: Temp Pulse Resp BP BP Pulse Ox 10/19/20 13:11 54 L 16 122/67 97 10/19/20 12:56 54 L 16 117/71 95 10/19/20 12:42 52 L 16 104/63 95 10/19/20 10:57 36.7 C 49 L 18 143/72 H 97 10/19/20 07:47 36.8 C 75 20 125/81 95 10/19/20 00:18 36.7 C 63 18 132/70 97 10/18/20 21:07 36.4 C L 55 L 18 155/83 H 98 10/18/20 19:59 36.8 C 55 L 18 130/78 95 10/18/20 15:44 36.6 C 55 L 18 144/75 H 97 Transfer of Care Handoff Completed per policy Notes Mental Status: alert / awake / arousable and participated in evaluation Patient Amnestic to Procedure: Yes Nausea / Vomiting: adequately controlled Pain: adequately controlled Airway Patency, RR, SpO2: stable & adequate BP & HR: stable & adequate Hydration State: stable & adequate Anesthetic Complications: no major complications apparent and Pt Satisfied with anesthetic care
--- NOTE | 2020-10-19 15:25 | Discharge Summary ---
Date of Service October 19, 2020 Admission HPI Per Admitting Provider The patient is a 74-year-old male with a past medical history including right renal cyst, left rotator cuff arthropathy, prostate cancer, hiatal hernia, hyperlipidemia, peripheral neuropathy, chronic pain syndrome, and allergic rhinitis. He reports that he had eaten a sandwich at suppertime, he thought he had seen a deer out in the yard, and gone into another room to look at it. At this time he also tried to drink some liquids, and was unable to swallow. He he developed significant substernal chest discomfort, that was ultimately relieved by sprays of sublingual nitroglycerin given to him in route to the ED by EMS. He has not attempted to swallow anything since that time. He has not had any previous occurrence of the symptoms. At this time his throat and chest feel normal but his throat feels dry. He denies being out in the sun and becoming overheated. He reports that his fluid intake prior to this interval had been completely normal over the past several days. Principal Diagnosis Odynophagia, esophageal ring, suspected eosinophilic esophagitis Discharge Exam Constitutional WD/WN, vitals as above Eyes + anicteric sclerae ENMT external ear and nose normal, oropharynx normal Neck trachea midline, no thyromegaly Respiratory normal respiratory effort, lungs clear to auscultation Cardiovascular RRR, no murmur, no edema Chest (Breasts) Chest: normal inspection of chest Gastrointestinal (Abdomen) normal bowel sounds, soft, nontender, no hepatosplenomegaly Musculoskeletal Extremities: extremities normal to inspection; no cyanosis and no clubbing Skin no rashes, warm and dry Neurologic moves all extremities and awake; no focal motor deficits Psychiatric A+Ox3, euthymic affect Lymphatic no lymphedema Discharge Data Allergies Allergy/AdvReac Type Severity Reaction Status Date / Time sulindac Allergy Unknown Verified 10/19/20 10:52 Consultations 10/17/20 21:09 ED Decision to Admit Stat 10/17/20 23:09 Consult Gastroenterology Routine Procedures Performed Operation Date: 10/19/20 16:45 Actual Procedures p EGD Biopsy Dilatation - Smith Glez MD Impression: - Esophageal mucosal changes suggestive of eosinophilic esophagitis. Biopsied. Dilated. - Medium-sized hiatal hernia. - Gastritis. Biopsied. - Erythematous duodenopathy. - Normal second portion of the duodenum. Recommendation: - Await pathology results. - Soft diet today. Advance as tolerated thereafter -start PPI protonix 40 mg daily - [facility]. Can discharge later today if stable. -follow up with [facility] in 1-2 weeks. Ordered Studies Chest X-Ray 10/17/20 18:54 XR chest 1V portable CLINICAL HISTORY: Atypical chest pain COMPARISON STUDY: 12/04/2019 FINDINGS: The heart is at the upper limits of normal in size. There is no failure. There is no focal pulmonary consolidation. There are no pleural effusions. There is a reverse total left shoulder arthroplasty.[No pneumothorax is visualized. There is an old left clavicular fracture. IMPRESSION: No active disease in the chest. ACT 112: Negative or not required by law. Electronically signed by: Frank Freedman M.D. 10/17/2020 7:09 PM ECHO Hospital Course (1) Esophagitis: Presented with Substernal chest pain relieved by nitroglycerin spray after eating a sandwich Cardiac workup negative with serial troponin and ECHO, PACs on tele Had EGD which showed ringed esophagus in upper 2/3, gastritis, duodenitis Biopsies taken esophagus dilated suspect EE start Protonix 40mg once daily soft diet for now f/u with GI in 1-2 weeks for pathology results (2) Gastritis and duodenitis: as above (3) Substernal chest pain relieved by nitroglycerin: as above (4) Dysphagia: as above (5) Hiatal hernia: See above (6) Neuropathy: continue home gabapentin (7) HLD (hyperlipidemia): continue home pravastatin (8) DVT prophylaxis: SCDs Dispo-dc to home doing well Total Time Total Time Spent Total Time Spent (In Minutes): 35 min Total Time Includes: Examination of the Patient, Discharge Planning and Medication Reconciliation Discharge Plan Discharge Items Patient Disposition: Home - Self-Care Reason For Visit: CHEST PAIN, DYSPHAGIA Discharge Diagnosis: Esophageal ring requiring dilation, possible eosinophilic esophagitis Condition on Discharge: Good Activity: Resume your previous activity Non-emergency contact: Primary Care Provider and 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 You had a normal workup of your heart and did not have a heart attack. You had an EGD to look at your esophagus and were found to have a ringed esophagus and inflammation in the stomach. You had a dilation (stretching) of your esophagus and a biopsy of the stomach was taken. Please follow up with Dr. Brumfield within 1-2 weeks to follow up on your results and discuss future plans. Please start taking Protonix 40mg once daily. Pending Studies at Discharge: Yes Stand-Alone Forms: My [facility] Medications and DC Order Prescriptions: New pantoprazole 40 mg Tablet,Delayed Release (Dr/Ec) 40 mg PO QAM Qty: 30 RF: 0 Continued nitroglycerin 0.4 mg Tablet, Sublingual 0.4 mg sublingual UD PRN (Reason: Chest Pain) RF: 0 oxycodone 5 mg Tablet 5 mg PO Q4H PRN (Reason: for breakthrough pain not controlled by other medications) Qty: 30 RF: 0 gabapentin 400 mg Capsule 400 mg PO TID RF: 0 pravastatin 10 mg Tablet 10 mg PO Q48H RF: 0 loratadine 10 mg Tablet 10 mg PO QPM RF: 0 cholecalciferol (vitamin D3) 1,000 unit Capsule 1,000 unit PO QPM RF: 0 aspirin 81 mg Tablet,Delayed Release (Dr/Ec) 81 mg PO Q OTHER DAY RF: 0 acetaminophen [Tylenol Extra Strength] 500 mg tablet 1,000 mg PO Q6 PRN (Reason: Pain) RF: 0 Discharge Orders: Discharge Order (Routine); Ordered 10/19/20 Ordered By: Dayan Bunch Admission Data Admit Date/Time: 10/17/20 21:20 Attending Provider: Dayan Bunch Admit Provider: Jean-Pierre Chappell Primary Care Provider: Shiva He Other Providers: Jean-Pierre Chappell ; Shayne Brumfield Other Interventions: Discharge Summary Assessment (RN) Last Done: 10/19/20 12:45 Coding Level of Care Code D/C DAY MANAGEMENT >30 MINS Diagnoses Substernal chest pain relieved by nitroglycerin R07.2 HLD (hyperlipidemia) E78.5 Dysphagia R13.10 Hiatal hernia K44.9 Neuropathy G62.9 DVT prophylaxis Z29.9 Esophagitis K20.90 Gastritis and duodenitis K29.90
--- NOTE | 2020-10-19 16:47 | Electrocardiogram Report ---
Test Reason : Blood Pressure : / mmHG Vent. Rate : 055 BPM Atrial Rate : 055 BPM P-R Int : 144 ms QRS Dur : 136 ms QT Int : 466 ms P-R-T Axes : 039 -32 003 degrees QTc Int : 445 ms Sinus bradycardia with Premature atrial complexes in a pattern of bigeminy Left axis deviation Right bundle branch block Abnormal ECG When compared with ECG of 18-OCT-2020 05:28, No significant change was found Confirmed by Michael Rosario ([id number]) on 10/19/2020 4:46:40 PM Referred By: REFERRED SELF Confirmed By:Nahum Rosario
== END 2020-10-19 15:41 | disposition home or self-care (01) ==
LOC: ED 18:38 → SUATTDRO 21:20 → 2S 21:20 → INTOOBSV 21:20 → 2S 23:16 → 2N 10-18 17:47

== ENCOUNTER 2021-01-16 12:58 | Observation (INO) ==
--- NOTE | 2021-01-16 13:22 | XRay Report ---
XR chest 1V portable HISTORY: 75 years-old Male Chest Pain acute atypical chest pain COMPARISON: Chest radiographs 01/11/2021 TECHNIQUE: Portable AP view the chest FINDINGS: Cardiac silhouette is mildly enlarged. Right subclavian dual lead pacer redemonstrated. No pneumothor ax, pleural effusion, airspace consolidation or overt pulmonary edema. Unchanged mild right hemidiaph ragmatic elevation. Chronic interstitial coarsening of the lung bases. Degenerative changes of the sp ine and right shoulder. Reverse left shoulder total joint arthroplasty. Healed chronic left clavicula r fracture. IMPRESSION: No acute process. ACT 112: Negative or not required by law. The above report was generated using voice recognition software. It may contain grammatical, syntax o r spelling errors. Electronically signed by: Abimael Harper M.D. 01/16/2021 1:21 PM
[2021-01-16] MEDS ORDERED: MoRPHine SULFATE 2 MG/ML CARP ONE (13:23)
[2021-01-16] MEDS ORDERED: ONDANSETRON INJ 2 MG/ML 2 ML VIAL IV STA (13:23)
[2021-01-16] MEDS ORDERED: ONDANSETRON INJ 2 MG/ML 2 ML VIAL ONE (13:23)
[2021-01-16] MEDS ORDERED: MoRPHine SULFATE 2 MG/ML CARP IV STA (13:23)
[2021-01-16 13:25] LABS: Basophils # (auto) 0.01 K/uL (0-0.2); Basophils % (auto) 0.1 %; Eosinophils # (auto) 0.16 K/uL (0-0.5); Eosinophils % (auto) 1.4 %; Hematocrit (blood only) 47.8 % (42-52); Immature Granulocytes # (auto) 0.03 K/uL (0.00-0.02); Immature Granulocytes % (auto) 0.3 %; Lymphocytes # (auto) 1.39 K/uL (1.2-3.4); Lymphocytes % (auto) 12.4 %; Mean Corpuscular Hemoglobin 30.2 pg (25-34); Mean Corpuscular Hgb Conc 33.5 g/dL (32-36); Mean Corpuscular Volume 90.4 fL (80-100); Mean Platelet Volume 9.6 fL (7.4-10.4); Monocytes # (auto) 0.92 K/uL (0.11-0.59); Monocytes % (auto) 8.2 %; Neutrophils # (auto) 8.73 K/uL (1.4-6.5); Neutrophils % (auto) 77.6 %; Platelet Count 224 K/uL (130-400); RDW Coefficient of Variation 14.6 % (11.5-14.5); RDW Standard Deviation 48.4 fL (36.4-46.3); Red Blood Count 5.29 M/uL (4.7-6.1); White Blood Count 11.24 K/uL (4.8-10.8)
--- NOTE | 2021-01-16 13:29 | Emergency Department Note ---
History of Present Illness General Chief complaint: Cardiac Assessment Stated complaint: CHEST PAIN, BACK PAIN, DR JENNIFER Time Seen by Provider: 01/16/21 13:22 Source: patient and family ( is at the bedside) Mode of arrival: ambulatory Limitations: no limitations History of Present Illness Maximum Pain Intensity: 10 This patient is a 75-year-old male who comes in after having back pain radiating to his right chest. He had a pacemaker placed last by Dr. Rosario he was doing fine until 11:00 today. It hurts when he breathes. He has had no trauma or injury. No fever or chills. No problems with the incision. No abdominal pain no nausea vomiting or syncope or near syncope. No blood or melena stool he is on no blood thinners. He has had his esophagus stretched in the past but not recently and he said no trouble swallowing today. No choking episodes. Home Medications Medication Instructions Recorded Confirmed Type cholecalciferol (vitamin D3) 25 1,000 unit PO QPM 06/15/18 01/16/21 History mcg (1,000 unit) capsule gabapentin 400 mg capsule 400 mg PO TID 06/15/18 01/16/21 History loratadine 10 mg tablet 10 mg PO QPM 06/15/18 01/16/21 History pravastatin 10 mg tablet 10 mg PO Q OTHER DAY 06/15/18 01/16/21 History nitroglycerin 0.4 mg sublingual 0.4 mg SUBLINGUAL UD PRN 01/26/19 01/16/21 History tablet acetaminophen 500 mg tablet 1,000 mg PO Q6 PRN 10/17/20 01/16/21 History (Tylenol Extra Strength) aspirin 81 mg tablet,delayed 81 mg PO Q OTHER DAY 10/17/20 01/16/21 History release pantoprazole 40 mg tablet,delayed 40 mg PO QAM #30 tab 10/19/20 01/16/21 Rx release Allergies Allergy/AdvReac Type Severity Reaction Status Date / Time sulindac Allergy Severe SHORT OF Verified 01/16/21 15:15 BREATH Past Med/Surg History Medical History Arthritis Asthma no recent issues/no inhaler Bifascicular block Degenerative disc disease Esophagitis Gastritis and duodenitis Hiatal hernia History of kidney stones History of prostate cancer s/p prostatectomy HLD (hyperlipidemia) JENA (hard of hearing) Male erectile disorder Neuropathy Nocturia Obesity Osteoarthritis Poor urinary stream Urinary frequency Surgical History History of colonoscopy History of open reduction and internal fixation (ORIF) procedure LLE History of prostate biopsy History of prostatectomy History of tonsillectomy S/P appendectomy Family History Mother Diabetes Son Esophageal cancer Other Heart disease Social History Smoking Status: Never smoker Years Smoked: 15; Number of Years Since Quit: 4; Second Hand Exposure: No; Hx Alcohol Use: Yes Hx Substance Use: No Preferred Language: Ethiopian Communication Ability: Effective In Flight Technician Required: No Beliefs That Will Affect Care: None marital status: Current Living Situation: Spouse Feels Safe at Home: Yes Assistive Devices: Glasses and Hearing Aid - Bilateral Review of Systems A total of 10 systems reviewed and were otherwise negative Physical Exam Vital Signs Vital Signs - 24 hr 01/16/21 13:04 01/16/21 13:44 01/16/21 14:30 Pulse Rate 68 Pulse Rate [Left Apical] 74 74 Pulse Rate from SpO2 Sensor Respiratory Rate 18 20 16 Respiratory Effort / Characteristics Non-Labored Spontaneous Respiratory Depth Normal Blood Pressure 161/102 H Blood Pressure [Left Arm] 145/79 H 143/78 H Blood Pressure Mean 121 Blood Pressure Mean [Left Arm] 101 99 Pulse Oximetry 96 96 97 Oxygen Delivery Method Room Air Room Air Sepsis Recent Fever Within 48 Hours No Sepsis New/Unexplained Change in Mental Status No Sepsis Action Taken by Nursing No Action Required 01/16/21 15:30 Pulse Rate 74 Pulse Rate [Left Apical] Pulse Rate from SpO2 Sensor 72 Respiratory Rate 22 Respiratory Effort / Characteristics Respiratory Depth Blood Pressure 136/76 Blood Pressure [Left Arm] Blood Pressure Mean 96 Blood Pressure Mean [Left Arm] Pulse Oximetry 96 Oxygen Delivery Method Sepsis Recent Fever Within 48 Hours Sepsis New/Unexplained Change in Mental Status Sepsis Action Taken by Nursing General: Well developed well nourished uncomfortable appearing older male who in no acute distress, breathing comfortably on room air. Normal speech. Hard of hearing HEENT: Normal cephalic atraumatic. Pupils are equal round and reactive to light. Extraocular movements are intact. Oropharynx is pink with moist mucous membranes. No swelling of the mouth lips or tongue. Neck: Supple with a midline trachea. No meningeal signs or stiffness, no JVD or bruits. No Stridor. Chest: Clear to auscultation bilaterally. No wheezes or rhonchi. No increased work of breathing. There is a pacemaker in the right chest that has some bruising but no redness or warmth. The wound is healing well Heart: Regular rate and rhythm without murmurs or gallops. Abdomen: Soft nontender, nondistended without rebound guarding or rigidity. Extremities: No cyanosis clubbing or edema. No calf tenderness or assymetry Spine/Back. Non tender to palpation. No CVA tenderness Skin: Good turgor without rashes. Neurologic exam: Cranial nerves two through 12 are intact. Motor and sensation are intact and symmetrical throughout. Course Administered Medications Discontinued Medications Ioversol (Optiray 320 125ml) 102 ml IV ONCE ONE Stop: 01/16/21 13:38 Last Admin: 01/16/21 13:40 Dose: 102 ml Documented by: [id number] Morphine Sulfate (Morphine Sulfate 2 Mg/Ml Carp) Confirm Administered Dose 2 mg .ROUTE .STK-MED ONE Stop: 01/16/21 13:24 Last Admin: 01/16/21 13:44 Dose: Not Given Documented by: [id number] Morphine Sulfate (Morphine Sulfate 2 Mg/Ml Carp) 2 mg IV NOW STA Stop: 01/16/21 13:24 Last Admin: 01/16/21 13:26 Dose: 2 mg Documented by: [id number] Morphine Sulfate (Morphine Sulfate 4 Mg/Ml 1 Ml Carp\Vial) 4 mg IV NOW STA Stop: 01/16/21 13:51 Last Admin: 01/16/21 13:54 Dose: 4 mg Documented by: [id number] Ondansetron HCl (Ondansetron Inj 2 Mg/Ml 2 Ml Vial) Confirm Administered Dose 4 mg .ROUTE .STK-MED ONE Stop: 01/16/21 13:24 Last Admin: 01/16/21 13:44 Dose: Not Given Documented by: [id number] Ondansetron HCl (Ondansetron Inj 2 Mg/Ml 2 Ml Vial) 4 mg IV NOW STA Stop: 01/16/21 13:24 Last Admin: 01/16/21 13:26 Dose: 4 mg Documented by: [id number] Medical Decision Making Differential Diagnosis Postop complication from pacemaker, acute coronary syndrome, PE, aortic diss ection/pathology, pneumothorax, CHF, musculoskeletal, anxiety, GERD, esophageal pathology, Covid Medical Records Attestation: I reviewed the patient's medical records. Home Medications Current Medication List: was personally reviewed by me Laboratory Data Attestation: I reviewed the patient's lab results. Result diagrams: 01/16/21 13:09 01/16/21 13:09 Lab Results 01/16/21 01/16/21 01/16/21 Range/Units 13:09 13:09 13:09 WBC 11.24 H (4.8-10.8) K/uL RBC 5.29 (4.7-6.1) M/uL Hgb 16.0 (14.0-18.0) g/dL Hct 47.8 (42-52) % MCV 90.4 (80-100) fL MCH 30.2 (25-34) pg MCHC 33.5 (32-36) g/dL RDW Std Deviation 48.4 H (36.4-46.3) fL RDW Coeff of Swetha 14.6 H (11.5-14.5) % Plt Count 224 (130-400) K/uL MPV 9.6 (7.4-10.4) fL Immature Gran % (Auto) 0.3 % Neut % (Auto) 77.6 % Lymph % (Auto) 12.4 % Sharkey % (Auto) 8.2 % Eos % (Auto) 1.4 % Baso % (Auto) 0.1 % Neut # (Auto) 8.73 H (1.4-6.5) K/uL Lymph # (Auto) 1.39 (1.2-3.4) K/uL Sharkey # (Auto) 0.92 H (0.11-0.59) K/uL Eos # (Auto) 0.16 (0-0.5) K/uL Baso # (Auto) 0.01 (0-0.2) K/uL Immature Gran # (Auto) 0.03 H (0.00-0.02) K/uL PT 10.3 (9.0-12.0) Seconds INR 1.0 (0.9-1.1) APTT 28.3 (21.0-31.0) Seconds PTT Ratio 1.1 Sodium 137 (136-145) mmol/L Potassium 4.1 (3.5-5.1) mmol/L Chloride 104 (98-107) mmol/L Carbon Dioxide 25 (21-32) mmol/L Anion Gap 8.0 (3-11) BUN 15 (7-18) mg/dl Creatinine 1.07 (0.6-1.4) mg/dl Est Cr Clr Drug Dosing 67.7 ml/min Est GFR ( Amer) 78.8 ml/min Est GFR (Non-Af Amer) 68.0 ml/min BUN/Creatinine Ratio 13.9 (10-20) Glucose 100 H (70-99) mg/dl Calcium 9.4 (8.5-10.1) mg/dl Total Bilirubin 1.0 (0.2-1) mg/dl AST 19 (15-37) U/L ALT 16 (12-78) U/L Alkaline Phosphatase 126 H (45-117) U/L Troponin I < 0.015 (0-0.045) ng/ml Total Protein 8.8 H (6.4-8.2) gm/dl Albumin 3.7 (3.4-5.0) gm/dl Globulin 5.1 H (2.5-4.0) gm/dl Albumin/Globulin Ratio 0.7 L (0.9-2) Specimen Hemolysis COVID-19 Eval Order SARS-CoV-2 (PCR) (Negative) 01/16/21 01/16/21 Range/Units 14:40 14:40 WBC (4.8-10.8) K/uL RBC (4.7-6.1) M/uL Hgb (14.0-18.0) g/dL Hct (42-52) % MCV (80-100) fL MCH (25-34) pg MCHC (32-36) g/dL RDW Std Deviation (36.4-46.3) fL RDW Coeff of Swetha (11.5-14.5) % Plt Count (130-400) K/uL MPV (7.4-10.4) fL Immature Gran % (Auto) % Neut % (Auto) % Lymph % (Auto) % Sharkey % (Auto) % Eos % (Auto) % Baso % (Auto) % Neut # (Auto) (1.4-6.5) K/uL Lymph # (Auto) (1.2-3.4) K/uL Sharkey # (Auto) (0.11-0.59) K/uL Eos # (Auto) (0-0.5) K/uL Baso # (Auto) (0-0.2) K/uL Immature Gran # (Auto) (0.00-0.02) K/uL PT (9.0-12.0) Seconds INR (0.9-1.1) APTT (21.0-31.0) Seconds PTT Ratio Sodium (136-145) mmol/L Potassium (3.5-5.1) mmol/L Chloride (98-107) mmol/L Carbon Dioxide (21-32) mmol/L Anion Gap (3-11) BUN (7-18) mg/dl Creatinine (0.6-1.4) mg/dl Est Cr Clr Drug Dosing ml/min Est GFR ( Amer) ml/min Est GFR (Non-Af Amer) ml/min BUN/Creatinine Ratio (10-20) Glucose (70-99) mg/dl Calcium (8.5-10.1) mg/dl Total Bilirubin (0.2-1) mg/dl AST (15-37) U/L ALT (12-78) U/L Alkaline Phosphatase (45-117) U/L Troponin I (0-0.045) ng/ml Total Protein (6.4-8.2) gm/dl Albumin (3.4-5.0) gm/dl Globulin (2.5-4.0) gm/dl Albumin/Globulin Ratio (0.9-2) Specimen Hemolysis COVID-19 Eval Order Covid19 at [facility] SARS-CoV-2 (PCR) NEGATIVE (Negative) Imaging Data Attestation: I personally reviewed and interpreted this imaging study as follows: My Impression: Chest x-rayno acute infiltrate, failure, pneumothorax seen Radiologist's Impression: Chest X-Ray 01/16/21 13:07 XR chest 1V portable HISTORY: 75 years-old Male Chest Pain acute atypical chest pain COMPARISON: Chest radiographs 01/11/2021 TECHNIQUE: Portable AP view the chest FINDINGS: Cardiac silhouette is mildly enlarged. Right subclavian dual lead pacer redemo nstrated. No pneumothorax, pleural effusion, airspace consolidation or overt pulmonary edema. Unchanged mild right hemidiaphragmatic elevation. Chronic interstitial coarsening of the lung bases. Degenerative changes of the spine and right shoulder. Reverse left shoulder total joint arthroplasty. Healed chronic left clavicular fracture. IMPRESSION: No acute process. ACT 112: Negative or not required by law. The above report was generated using voice recognition software. It may contain grammatical, syntax or spelling errors. Electronically signed by: Abimael Harper M.D. 01/16/2021 1:21 PM Chest CTA 01/16/21 13:30 CT ANGIOGRAM OF THE CHEST COMBO CLINICAL HISTORY: Thoracic back pain. Recent pacemaker implantation. COMPARISON STUDY: Chest x-ray dated 01/16/2021. TECHNIQUE: Before and following the IV administration of 102 cc of Optiray 320, CT angiogram of the chest was performed from the thoracic inlet to the upper abdomen utilizing the dissection protocol. Images are reviewed in the axial, s agittal, and coronal planes. 3-D MIPS images are created and assessed. IV contrast was administered without complication. A dose lowering technique was utilized adhering to the principles of ALARA. The examination is degraded by streak artifact from the arms which could not elevated above the chest. CT DOSE: 1435.98 mGy.cm FINDINGS: Thyroid: Mildly enlarged and heterogeneous. Thoracic aorta: No intramural hematoma is seen on the unenhanced series. There is mild atherosclerotic calcification of the thoracic aorta, which is normal in caliber and demonstrates bovine variant arch anatomy. No dissection is seen. The arch vessels are widely patent. Pulmonary vasculature: The pulmonary trunk is normal in caliber. There are no central filling defects identified in the pulmonary vessels to suggest pulmonary embolus. Note that this examination was not specifically protocoled to assess for pulmonary emboli. Heart: A 2-lead cardiac pacemaker is present in the right chest wall. Leads terminate in the right atrial appendage and the right ventricle. The tip of the ventricular lead closely approximates the myocardium. The heart is mildly enl arged noting pericardial thickening and trace pericardial effusion. The coronary arteries are densely calcified. Lungs and pleural spaces: There is a small right pleural effusion and bibasilar atelectasis. No airspace consolidation is seen typical for pneumonia. The trachea and central airways appear clear. No pneumothorax is seen. Mediastinum: There is no mediastinal lymphadenopathy. Shaye: Clear. Axillae: There is no axillary lymphadenopathy. Upper abdomen: There is a small hiatal hernia. A 2.5 cm cyst is partially visualized in the upper pole of the left kidney. Skeletal structures: The skeletal structures are osteopenic. Degenerative change and hyperkyphosis are noted in the thoracic spine. No lytic or blastic bony lesions are seen. A left shoulder arthroplasty is in place. Soft tissues: A pacemaker is implanted in the right anterior chest wall. There is trace surrounding fluid and subcutaneous gas, likely related to the recent procedure. IMPRESSION: 1. Unremarkable CT angiogram of the thoracic aorta. 2. Cardiomegaly without CT evidence of congestive failure. 3. Small right pleural effusion and bibasilar atelectasis. 4. A 2-lead cardiac pacemaker has been placed as above. The tip of the ventricular lead closely approximates the myocardium. A small perforation would be impossible to exclude. This is not well evaluated by CT due to cardiac motion and metallic streak artifact. 5. Trace fluid and subcutaneous gas is identified around the pacemaker in the right chest wall. This is likely due to recent implantation. Clinical correlation will be required. 6. There is pericardial thickening and trace pericardial effusion. 7. Additional findings as above. ACT 112: Negative or not required by law. Electronically signed by: Salvador Whittaker M.D. 01/16/2021 2:00 PM ECG Data Attestation: I personally reviewed and interpreted this ECG as follows: Indication: + back/shoulder pain and + chest pain Rate (beats per minute): 67 Rhythm: + normal sinus and + other (Paced rhytym) ECG Intervals/blocks: + Right Bundle branch block and + Normal QT ECG [place]: + Normal ECG ST segments: + Nonspecific ST abnormalities ECG Findings: no PACs or no PVCs Comparison ECG Date: from (10/19/20) Change: the following changes noted (Intermittent paced rhythm is now present) MDM Narrative This patient comes in as described above. The nurse called me from triage and they put him in D7 to get the work-up started. He has stable vital signs but does appear uncomfortable. It is pleuritic. I went and saw him immediately and D7. He is in respiratory distress. IV access was established to give him 2 mg of IV morphine and 4 mg IV Zofran. EKG shows intermittent paced rhythm without any definite ischemic changes. Chest x-ray shows no definite pneumothorax, CHF or infiltrates. Given his symptoms I did want a do a CAT scan to rule out aortic pathology pericardial pathology and PE. Bone is not elevated. White count is mildly elevated but he has no fever and his wound site looks like it is healing well without any evidence to suggest infection. There is no significant electrolyte or metabolic abnormalities. CAT scan shows no aortic pathology, only a trace pericardial effusion, no definite PE or pneumothorax. The tip of the ventricular lead closely approximated the myocardium a small perforation be impossible to exclude. This is not well evaluated by CT due to cardiac motion and metallic streak effect. I did discuss the case with Dr. Rosario. He feels most likely this is more of a pericarditis type picture and feels the patient would benefit from anti-inflammatories or colchicine. At this point, there is no evidence to suggest a pericardial effusion to suggest perforation. He tells me that even if there was a small perforation they just watch. He did not feel stat echo was needed today but as the patient will be admitted the patient can have this in the morning. The rep from [employer] called me and told me that the pacemaker is working fine there is no evidence of any lead problems or arrhythmi as seen on the pacemaker monitor. I have consulted Dr. De Oliveira to see the patient in the ER for these measures. Continuous cardiac monitoring: Orders placed in EMR for continuous cardiac monitoring. Upon my interpretation the patient was noted to be in intermittent paced rhythm at a rate of 77 Impression & Plan Chest pain, Back pain, S/P cardiac pacemaker procedure, Lab test negative for COVID-19 virus Discharge Plan Visit Data Chief Complaint: Cardiac Assessment Stated Complaint: CHEST PAIN, BACK PAIN, DR REF ED Provider: Shayne Shrestha Discharge Problem: Chest pain, Back pain, S/P cardiac pacemaker procedure, Lab test negative for COVID-19 virus Discharge Problem: Chest pain Qualifiers: Chest pain type: unspecified Qualified Code(s): R07.9 - Chest pain, unspecified Back pain Qualifiers: Back pain location: thoracic back pain Chronicity: acute Back pain laterality: midline Qualified Code(s): M54.6 - Pain in thoracic spine
[2021-01-16 13:33] LABS: Partial Thromboplastin Ratio 1.1; Partial Thromboplastin Time 28.3 Seconds (21.0-31.0); Prothrombin Time 10.3 Seconds (9.0-12.0)
[2021-01-16] MEDS ORDERED: OPTIRAY 320 125ml IV ONE (13:37)
[2021-01-16] MEDS ORDERED: MoRPHine SULFATE 4 MG/ML 1 ML CARP\\VIAL IV STA (13:50)
[2021-01-16 13:56] LABS: Alanine Aminotransferase 16 U/L (12-78); Albumin Globulin Ratio 0.7 (0.9-2); Albumin Level 3.7 gm/dl (3.4-5.0); Alkaline Phosphatase 126 U/L (45-117); Aspartate Aminotransferase 19 U/L (15-37); BUN Creatinine Ratio 13.9 (10-20); Blood Urea Nitrogen 15 mg/dl (7-18); Calcium 9.4 mg/dl (8.5-10.1); Carbon Dioxide 25 mmol/L (21-32); Chloride 104 mmol/L (98-107); Creatinine Clr Calc Pharmacy 67.7 ml/min; Est GFR (African American) 78.8 ml/min; Globulin 5.1 gm/dl (2.5-4.0); Glucose 100 mg/dl (70-99); Potassium 4.1 mmol/L (3.5-5.1); Sodium 137 mmol/L (136-145); Total Protein 8.8 gm/dl (6.4-8.2); Troponin I < 0.015 ng/ml (0-0.045)
--- NOTE | 2021-01-16 14:01 | CT Scan Report ---
CT ANGIOGRAM OF THE CHEST COMBO CLINICAL HISTORY: Thoracic back pain. Recent pacemaker implantation. COMPARISON STUDY: Chest x-ray dated 01/16/2021. TECHNIQUE: Before and following the IV administration of 102 cc of Optiray 320, CT angiogram of the c hest was performed from the thoracic inlet to the upper abdomen utilizing the dissection protocol. Im ages are reviewed in the axial, sagittal, and coronal planes. 3-D MIPS images are created and assesse d. IV contrast was administered without complication. A dose lowering technique was utilized adherin g to the principles of ALARA. The examination is degraded by streak artifact from the arms which coul d not elevated above the chest. CT DOSE: 1435.98 mGy.cm FINDINGS: Thyroid: Mildly enlarged and heterogeneous. Thoracic aorta: No intramural hematoma is seen on the unenhanced series. There is mild atheroscleroti c calcification of the thoracic aorta, which is normal in caliber and demonstrates bovine variant arc h anatomy. No dissection is seen. The arch vessels are widely patent. Pulmonary vasculature: The pulmonary trunk is normal in caliber. There are no central filling defects identified in the pulmonary vessels to suggest pulmonary embolus. Note that this examination was not specifically protocoled to assess for pulmonary emboli. Heart: A 2-lead cardiac pacemaker is present in the right chest wall. Leads terminate in the right at rial appendage and the right ventricle. The tip of the ventricular lead closely approximates the myoc ardium. The heart is mildly enlarged noting pericardial thickening and trace pericardial effusion. Th e coronary arteries are densely calcified. Lungs and pleural spaces: There is a small right pleural effusion and bibasilar atelectasis. No airsp jo consolidation is seen typical for pneumonia. The trachea and central airways appear clear. No pne umothorax is seen. Mediastinum: There is no mediastinal lymphadenopathy. Shaye: Clear. Axillae: There is no axillary lymphadenopathy. Upper abdomen: There is a small hiatal hernia. A 2.5 cm cyst is partially visualized in the upper sue e of the left kidney. Skeletal structures: The skeletal structures are osteopenic. Degenerative change and hyperkyphosis ar e noted in the thoracic spine. No lytic or blastic bony lesions are seen. A left shoulder arthroplast y is in place. Soft tissues: A pacemaker is implanted in the right anterior chest wall. There is trace surrounding f luid and subcutaneous gas, likely related to the recent procedure. IMPRESSION: 1. Unremarkable CT angiogram of the thoracic aorta. 2. Cardiomegaly without CT evidence of congestive failure. 3. Small right pleural effusion and bibasilar atelectasis. 4. A 2-lead cardiac pacemaker has been placed as above. The tip of the ventricular lead closely appro ximates the myocardium. A small perforation would be impossible to exclude. This is not well evaluate d by CT due to cardiac motion and metallic streak artifact. 5. Trace fluid and subcutaneous gas is identified around the pacemaker in the right chest wall. This is likely due to recent implantation. Clinical correlation will be required. 6. There is pericardial thickening and trace pericardial effusion. 7. Additional findings as above. ACT 112: Negative or not required by law. Electronically signed by: Salvador Whittaker M.D. 01/16/2021 2:00 PM
--- NOTE | 2021-01-16 15:45 | Electrocardiogram Report ---
Test Reason : Blood Pressure : / mmHG Vent. Rate : 067 BPM Atrial Rate : 067 BPM P-R Int : 138 ms QRS Dur : 140 ms QT Int : 434 ms P-R-T Axes : 076 -49 016 degrees QTc Int : 458 ms Poor data quality, interpretation may be adversely affected Normal sinus rhythm Atrial paced beats Right bundle branch block Left anterior fascicular block Bifascicular block Abnormal ECG When compared with ECG of 19-OCT-2020 06:37, Atrial paced beats now present Confirmed by Leighton Voss ([id number]) on 01/16/2021 3:45:26 PM Referred By: Confirmed By:Leighton Voss
--- NOTE | 2021-01-16 15:56 | History & Physical Report ---
Date of Service January 16, 2021 Assessment & Plan (1) Chest pain: Plan: Difficult to conclude exactly the source of the patient's chest pain, differential includes a musculoskeletal pain, pericarditis, or possible microscopic perforation of the pacer lead. The patient does seem to be functioning normally both the monitor and during interrogation. Please monitor observation We will trend cardiac enzymes We will order a 2D echo for the a.m. Will try course of indomethacin and colchicine. Consider steroids if gastritis or renal function worsened by NSAIDs Would like to try a course of baclofen as well to see if this makes a difference for the spasm type pain in the thoracic spine Will consult Dr. Rosario for further recommendations (2) HLD (hyperlipidemia): Plan: Continue pravastatin or pharmacy equivalent (3) Gastritis and duodenitis: Plan: Will increase pantoprazole to twice daily while patient is on indomethacin History of Present Illness Chief Complaint: chest pain Primary Care Provider: Shiva He MD This is a 75-year-old male with past medical history of hyperlipidemia, gastritis, and recent pacemaker placement on 01/13 for "chronotropic incompetence" that presents today complaining of chest pain. Patient is accompanied by his and both are good historians. Patient tells me that he had the pacer inserted by Dr. Rosario on 01/11 as an outpatient. He did not remain in the hospital. He was able to go home and did not have any issues at first. The device was placed in the right side as the patient is a left-handed gentleman who enjoys hunting so was felt that this would be a better way to accommodate the stock of a weapon. Patient did his best to keep his right arm down as much as possible. He tells me that yesterday he did some leaf blowing but not move his arm around very much. This morning he was able to get up and went to the post office with no issues. However, soon after returning he had a sudden sharp pain in his chest. This was in the right lower rib border with radiation around to the back. He also noted some pain in his mid thoracic region as well. He felt this was very severe and unrelenting, it is now improved only with the ministration of morphine in the emergency room. There is a very pleuritic character to it. Work-up in the emergency room was essentially unrevealing. CT scan showed only minimal pleural effusion but was negative for pneumothorax. There was a question about the tip of the ventricular lead closely approximating the myocardium, "a small perforation would be impossible to exclude" as per radiology. The pacemaker was interrogated without any significant findings and leads are felt to be well placed. ER physician discussed with Dr. Rosario, recommending observation on a monitored bed and 2D echo in the morning. He also recommended treatment for possible pericarditis. Allergies Allergy/AdvReac Type Severity Reaction Status Date / Time sulindac Allergy Severe SHORT OF Verified 01/16/21 15:15 BREATH Home Medications Medication Instructions Recorded Confirmed Type cholecalciferol (vitamin D3) 25 1,000 unit PO QPM 06/15/18 01/16/21 History mcg (1,000 unit) capsule gabapentin 400 mg capsule 400 mg PO TID 06/15/18 01/16/21 History loratadine 10 mg tablet 10 mg PO QPM 06/15/18 01/16/21 History pravastatin 10 mg tablet 10 mg PO Q OTHER DAY 06/15/18 01/16/21 History nitroglycerin 0.4 mg sublingual 0.4 mg SUBLINGUAL UD PRN 01/26/19 01/16/21 History tablet acetaminophen 500 mg tablet 1,000 mg PO Q6 PRN 10/17/20 01/16/21 History (Tylenol Extra Strength) aspirin 81 mg tablet,delayed 81 mg PO Q OTHER DAY 10/17/20 01/16/21 History release pantoprazole 40 mg tablet,delayed 40 mg PO QAM #30 tab 10/19/20 01/16/21 Rx release Past Med/Surg History Medical History Arthritis Asthma no recent issues/no inhaler Bifascicular block Degenerative disc disease Esophagitis Gastritis and duodenitis Hiatal hernia History of kidney stones History of prostate cancer s/p prostatectomy HLD (hyperlipidemia) ANIAK (hard of hearing) Male erectile disorder Neuropathy Nocturia Obesity Osteoarthritis Poor urinary stream Urinary frequency Surgical History History of colonoscopy History of open reduction and internal fixation (ORIF) procedure LLE History of prostate biopsy History of prostatectomy History of tonsillectomy S/P appendectomy Family History Mother Diabetes Son Esophageal cancer Other Heart disease Social History Smoking Status: Never smoker Years Smoked: 15; Number of Years Since Quit: 4; Second Hand Exposure: No; Hx Alcohol Use: Yes Hx Substance Use: No Preferred Language: Ukrainian Communication Ability: Effective Quality And Reliability Engineer Required: No Beliefs That Will Affect Care: None marital status: Current Living Situation: Spouse Feels Safe at Home: Yes Assistive Devices: Glasses and Hearing Aid - Bilateral Review of Systems Constitutional: no fever, no chills, no weakness, no weight loss and no weight gain Eyes: as per Subjective / HPI Respiratory: + problem reported; no cough, no chest congestion, no dyspnea and no dyspnea on exertion Cardiovascular: + chest pain and + problem reported; no radiating jaw, neck or arm pain, no orthopnea, no palpitations, no lightheadedness and no edema Gastrointestinal: no abdominal pain, no nausea, no vomiting, no constipation and no diarrhea/loose stools Musculoskeletal: no back pain, no neck pain, no joint pain, no stiffness and no myalgia Integumentary: no rash Neurologic: no gait abnormality, no unsteadiness, no falls and no generalized weakness Physical Exam Constitutional: cooperative; no acute distress Neck: trachea midline, no thyromegaly Respiratory: normal respiratory effort Auscultation: lungs clear to auscultation bilaterally; no crackles, no rales, no rhonchi and no wheezes Cardiovascular: Rate/Rhythm: regular rate and regular rhythm Heart Sounds: normal S1 and normal S2 Gastrointestinal (Abdomen): Inspection/Auscultation: abdomen normal to inspection Percussion/Palpation: abdomen soft; abdomen nontender, no guarding, abdomen not rigid and no hepatosplenomegaly Musculoskeletal: Palpable right sided mid thoracic paraspinal muscle spasm with accompanying tenderness Skin: no rashes, warm and dry Results & Data Results & Data ([facility]) Vital Signs (Past 12 Hours) Vital Signs Pulse Pulse Resp BP BP Pulse Ox 01/16/21 14:30 74 16 143/78 H 97 01/16/21 13:44 74 20 145/79 H 96 01/16/21 13:04 68 18 161/102 H 96 Laboratory Results Laboratory Results WBC 11.24 K/uL (4.8-10.8) H 01/16/21 13:09 RBC 5.29 M/uL (4.7-6.1) 01/16/21 13:09 Hgb 16.0 g/dL (14.0-18.0) 01/16/21 13:09 Hct 47.8 % (42-52) 01/16/21 13:09 MCV 90.4 fL (80-100) 01/16/21 13:09 MCH 30.2 pg (25-34) 01/16/21 13:09 MCHC 33.5 g/dL (32-36) 01/16/21 13:09 RDW Std Deviation 48.4 fL (36.4-46.3) H 01/16/21 13:09 RDW Coeff of Swetha 14.6 % (11.5-14.5) H 01/16/21 13:09 Plt Count 224 K/uL (130-400) 01/16/21 13:09 MPV 9.6 fL (7.4-10.4) 01/16/21 13:09 Immature Gran % (Auto) 0.3 % 01/16/21 13:09 Neut % (Auto) 77.6 % 01/16/21 13:09 Lymph % (Auto) 12.4 % 01/16/21 13:09 Todd % (Auto) 8.2 % 01/16/21 13:09 Eos % (Auto) 1.4 % 01/16/21 13:09 Baso % (Auto) 0.1 % 01/16/21 13:09 Neut # (Auto) 8.73 K/uL (1.4-6.5) H 01/16/21 13:09 Lymph # (Auto) 1.39 K/uL (1.2-3.4) 01/16/21 13:09 Todd # (Auto) 0.92 K/uL (0.11-0.59) H 01/16/21 13:09 Eos # (Auto) 0.16 K/uL (0-0.5) 01/16/21 13:09 Baso # (Auto) 0.01 K/uL (0-0.2) 01/16/21 13:09 Immature Gran # (Auto) 0.03 K/uL (0.00-0.02) H 01/16/21 13:09 PT 10.3 Seconds (9.0-12.0) 01/16/21 13:09 INR 1.0 (0.9-1.1) 01/16/21 13:09 APTT 28.3 Seconds (21.0-31.0) 01/16/21 13:09 PTT Ratio 1.1 01/16/21 13:09 Sodium 137 mmol/L (136-145) 01/16/21 13:09 Potassium 4.1 mmol/L (3.5-5.1) 01/16/21 13:09 Chloride 104 mmol/L (98-107) 01/16/21 13:09 Carbon Dioxide 25 mmol/L (21-32) 01/16/21 13:09 Anion Gap 8.0 (3-11) 01/16/21 13:09 BUN 15 mg/dl (7-18) 01/16/21 13:09 Creatinine 1.07 mg/dl (0.6-1.4) 01/16/21 13:09 Est Cr Clr Drug Dosing 67.7 ml/min 01/16/21 13:09 Est GFR ( Amer) 78.8 ml/min 01/16/21 13:09 Est GFR (Non-Af Amer) 68.0 ml/min 01/16/21 13:09 BUN/Creatinine Ratio 13.9 (10-20) 01/16/21 13:09 Glucose 100 mg/dl (70-99) H 01/16/21 13:09 Calcium 9.4 mg/dl (8.5-10.1) 01/16/21 13:09 Total Bilirubin 1.0 mg/dl (0.2-1) 01/16/21 13:09 AST 19 U/L (15-37) 01/16/21 13:09 ALT 16 U/L (12-78) 01/16/21 13:09 Alkaline Phosphatase 126 U/L (45-117) H 01/16/21 13:09 Troponin I < 0.015 ng/ml (0-0.045) 01/16/21 13:09 Total Protein 8.8 gm/dl (6.4-8.2) H 01/16/21 13:09 Albumin 3.7 gm/dl (3.4-5.0) 01/16/21 13:09 Globulin 5.1 gm/dl (2.5-4.0) H 01/16/21 13:09 Albumin/Globulin Ratio 0.7 (0.9-2) L 01/16/21 13:09 Specimen Hemolysis 01/16/21 13:09 COVID-19 Eval Order Covid19 at [facility] 01/16/21 14:40 SARS-CoV-2 (PCR) NEGATIVE (Negative) 01/16/21 14:40 Impressions Chest X-Ray 01/16/21 13:07 XR chest 1V portable HISTORY: 75 years-old Male Chest Pain acute atypical chest pain COMPARISON: Chest radiographs 01/11/2021 TECHNIQUE: Portable AP view the chest FINDINGS: Cardiac silhouette is mildly enlarged. Right subclavian dual lead pacer redemonstrated. No pneumothorax, pleural effusion, airspace consolidation or overt pulmonary edema. Unchanged mild right hemidiaphragmatic elevation. Chronic interstitial coarsening of the lung bases. Degenerative changes of the spine and right shoulder. Reverse left shoulder total joint arthroplasty. Healed chronic left clavicular fracture. IMPRESSION: No acute process. ACT 112: Negative or not required by law. The above report was generated using voice recognition software. It may contain grammatical, syntax or spelling errors. Electronically signed by: Abimael Harper M.D. 01/16/2021 1:21 PM Chest CTA 01/16/21 13:30 CT ANGIOGRAM OF THE CHEST COMBO CLINICAL HISTORY: Thoracic back pain. Recent pacemaker implantation. COMPARISON STUDY: Chest x-ray dated 01/16/2021. TECHNIQUE: Before and following the IV administration of 102 cc of Optiray 320, CT angiogram of the chest was performed from the thoracic inlet to the upper abdomen utilizing the dissection protocol. Images are reviewed in the axial, sagittal, and coronal planes. 3-D MIPS images are created and assessed. IV contrast was administered without complication. A dose lowering technique was utilized adhering to the principles of ALARA. The examination is degraded by streak artifact from the arms which could not elevated above the chest. CT DOSE: 1435.98 mGy.cm FINDINGS: Thyroid: Mildly enlarged and heterogeneous. Thoracic aorta: No intramural hematoma is seen on the unenhanced series. There is mild atherosclerotic calcification of the thoracic aorta, which is normal in caliber and demonstrates bovine variant arch anatomy. No dissection is seen. The arch vessels are widely patent. Pulmonary vasculature: The pulmonary trunk is normal in caliber. There are no central filling defects identified in the pulmonary vessels to suggest pulmonary embolus. Note that this examination was not specifically protocoled to assess for pulmonary emboli. Heart: A 2-lead cardiac pacemaker is present in the right chest wall. Leads terminate in the right atrial appendage and the right ventricle. The tip of the ventricular lead closely approximates the myocardium. The heart is mildly enlarged noting pericardial thickening and trace pericardial effusion. The coronary arteries are densely calcified. Lungs and pleural spaces: There is a small right pleural effusion and bibasilar atelectasis. No airspace consolidation is seen typical for pneumonia. The trachea and central airways appear clear. No pneumothorax is seen. Mediastinum: There is no mediastinal lymphadenopathy. Shaye: Clear. Axillae: There is no axillary lymphadenopathy. Upper abdomen: There is a small hiatal hernia. A 2.5 cm cyst is partially visualized in the upper pole of the left kidney. Skeletal structures: The skeletal structures are osteopenic. Degenerative change and hyperkyphosis are noted in the thoracic spine. No lytic or blastic bony lesions are seen. A left shoulder arthroplasty is in place. Soft tissues: A pacemaker is implanted in the right anterior chest wall. There is trace surrounding fluid and subcutaneous gas, likely related to the recent procedure. IMPRESSION: 1. Unremarkable CT angiogram of the thoracic aorta. 2. Cardiomegaly without CT evidence of congestive failure. 3. Small right pleural effusion and bibasilar atelectasis. 4. A 2-lead cardiac pacemaker has been placed as above. The tip of the ventricular lead closely approximates the myocardium. A small perforation would be impossible to exclude. This is not well evaluated by CT due to cardiac motion and metallic streak artifact. 5. Trace fluid and subcutaneous gas is identified around the pacemaker in the right chest wall. This is likely due to recent implantation. Clinical correlation will be required. 6. There is pericardial thickening and trace pericardial effusion. 7. Additional findings as above. ACT 112: Negative or not required by law. Electronically signed by: Salvador Whittaker M.D. 01/16/2021 2:00 PM PG Care Time/CCT Total # of Minutes Spent Total Time Spent with Patient: Total time spent is greater than 50% in coordination of care (as documented) at patient's floor/unit and/or counseling patient: Coding Level of Care Code INT OBSERVATION CARE 70M LVL 3 Diagnoses HLD (hyperlipidemia) E78.5 Chest pain R07.9 Chest pain type: unspecified Gastritis and duodenitis K29.90 (1) Chest pain Chest pain type: unspecified Qualified Code(s): R07.9 - Chest pain, unspecified
[2021-01-16] MEDS ORDERED: NITROGLYCERIN SL 0.4 MG/TAB TAB SL PRN (16:34)
[2021-01-16] MEDS ORDERED: ONDANSETRON INJ 2 MG/ML 2 ML VIAL IV PRN (16:34)
[2021-01-16] MEDS ORDERED: ACETAMINOPHEN 500 MG TAB PO PRN (17:03)
[2021-01-16] MEDS ORDERED: HYDROmorphone INJ 0.5 MG/0.5 ML SYR IV PRN (17:21)
[2021-01-16] MEDS ORDERED: HYDROmorphone INJ 0.5 MG/0.5 ML SYR ONE (18:08)
[2021-01-16] MEDS ORDERED: predniSONE 20 MG TAB PO STA (18:56)
[2021-01-16] MEDS ORDERED: LORATADINE 10 MG TAB PO SCH (21:00)
[2021-01-16] MEDS ORDERED: INDOMETHACIN 25 MG CAP PO SCH (21:00)
[2021-01-16] MEDS ORDERED: ASPIRIN 81 MG ECTAB PO SCH (21:00)
[2021-01-16] MEDS ORDERED: CHOLECALCIFEROL 1,000 UNITS 25 MCG TAB PO SCH (21:00)
[2021-01-16] MEDS ORDERED: PRAVASTATIN SOD 10 MG TAB PO SCH (21:00)
[2021-01-16] MEDS: BACLOFEN 10 MG TAB PO SCH (22:23)
[2021-01-16] MEDS: COLCHICINE 0.6 MG TAB PO SCH (22:25)
[2021-01-16] MEDS: GABAPENTIN 400 MG CAP PO SCH (22:26)
[2021-01-16] MEDS: PANTOprazole 40 MG TAB PO SCH (22:27)
[2021-01-17 04:48] LABS: Hematocrit (blood only) 46.2 % (42-52); Hemoglobin 15.7 g/dL (14.0-18.0); Immature Granulocytes # (auto) 0.03 K/uL (0.00-0.02); Immature Granulocytes % (auto) 0.2 %; Lymphocytes # (auto) 0.77 K/uL (1.2-3.4); Lymphocytes % (auto) 6.2 %; Mean Corpuscular Hemoglobin 30.6 pg (25-34); Mean Corpuscular Volume 90.1 fL (80-100); Mean Platelet Volume 10.1 fL (7.4-10.4); Monocytes # (auto) 0.69 K/uL (0.11-0.59); Monocytes % (auto) 5.5 %; Neutrophils # (auto) 10.97 K/uL (1.4-6.5); Neutrophils % (auto) 88.1 %; Platelet Count 220 K/uL (130-400); RDW Coefficient of Variation 14.7 % (11.5-14.5); RDW Standard Deviation 48.9 fL (36.4-46.3); Red Blood Count 5.13 M/uL (4.7-6.1); White Blood Count 12.46 K/uL (4.8-10.8)
[2021-01-17 05:41] LABS: BUN Creatinine Ratio 15.3 (10-20); Blood Urea Nitrogen 20 mg/dl (7-18); Calcium 9.3 mg/dl (8.5-10.1); Carbon Dioxide 25 mmol/L (21-32); Chloride 104 mmol/L (98-107); Chol HDL Ratio 2; Cholesterol 164 mg/dl (0-200); Creatinine Clr Calc Pharmacy 56.1 ml/min; Est GFR (African American) 62.9 ml/min; Est GFR (Non-African American) 54.3 ml/min; Glucose 152 mg/dl (70-99); HDL Cholesterol 68 mg/dl; LDL Cholesterol Calculated 84 mg/dl; Magnesium 2.4 mg/dl (1.8-2.4); Sodium 134 mmol/L (136-145); Triglycerides 59 mg/dl (0-150); Troponin I < 0.015 ng/ml (0-0.045); VLDL Cholesterol 12 mg/dl
[2021-01-17] MEDS: COLCHICINE 0.6 MG TAB PO SCH (08:11)
[2021-01-17] MEDS: BACLOFEN 10 MG TAB PO SCH ×2 (08:11→14:54)
[2021-01-17] MEDS: GABAPENTIN 400 MG CAP PO SCH ×2 (08:11→14:54)
[2021-01-17] MEDS: PANTOprazole 40 MG TAB PO SCH (08:11)
[2021-01-17] MEDS ORDERED: predniSONE 20 MG TAB PO SCH (09:00)
--- NOTE | 2021-01-17 09:40 | Cardiology Progress Note ---
Date of Service January 17, 2021 Assessment & Plan (1) Chest pain: Plan: 1. Chest pain: I do not think we can be certain of the etiology of his chest discomfort, but more life-threatening and severe etiologies appear to have been excluded yesterday with CT scanning. His symptoms are certainly consistent with a lead migration to involve the pericardial space. He appears to have responded well to colchicine and analgesics. There is a very trace effusion on e chocardiography and CT scanning. The device function continues to be normal. Hemodynamically stable. Symptoms improved.I do not think this represents an indication for lead revision. I think treating him conservatively with colchicine and nonsteroidal medication would be cobos. He has a scheduled follow-up tomorrow. Repeat echocardiogram could be performed in a week if symptoms persist. Admission and Anticipated Discharge Date Admission Date: January 16, 2021 Subjective The patient was initially referred for symptoms of chronotropic incompetence. He underwent permanent pacemaker placement 6 days ago. The procedure was uncomplicated and the patient was discharged home on routine precautions. Seems that yesterday afternoon he developed the acute sensation chest pain which radiated to the back. This was very painful at 1st and pleuritic in nature. Due to the prolonged and severe nature of his symptoms he present to the emergency room for evaluation. There was no specific etiology defined. Imaging and laboratory studies were essentially unremarkable. The patient was administered analgesics in the symptoms gradually improved. This morning the patient claims to be feeling better. He states that with deep inspiration he was still notice a very minor discomfort in the same region. However, he has been ambulatory and his symptoms are much improved. No significant dyspnea. No dizziness. Review of Systems Review of Systems: Per HPI Physical Exam Physical Exam: Alert. Answers all questions appropriately. device implant site well-healed without ecchymosis, swelling or hematoma. Results & Data ([facility]) Vital Signs (Past 12 Hours) Vital Signs Temp Pulse Pulse Resp BP Pulse Ox 01/17/21 07:12 36.5 C 70 18 115/74 93 01/17/21 04:29 36.4 C L 60 18 133/81 96 01/17/21 00:06 36.8 C 62 18 117/80 93 01/16/21 23:00 70 Laboratory Results Abnormal Lab Results 01/16/21 01/16/21 01/16/21 13:09 13:09 13:09 WBC 11.24 H RBC 5.29 Hgb 16.0 Hct 47.8 MCV 90.4 MCH 30.2 MCHC 33.5 RDW Std Deviation 48.4 H RDW Coeff of Swetha 14.6 H Plt Count 224 MPV 9.6 Immature Gran % (Auto) 0.3 Neut % (Auto) 77.6 Lymph % (Auto) 12.4 Ferry % (Auto) 8.2 Eos % (Auto) 1.4 Baso % (Auto) 0.1 Neut # (Auto) 8.73 H Lymph # (Auto) 1.39 Ferry # (Auto) 0.92 H Eos # (Auto) 0.16 Baso # (Auto) 0.01 Immature Gran # (Auto) 0.03 H PT 10.3 INR 1.0 APTT 28.3 PTT Ratio 1.1 Sodium 137 Potassium 4.1 Chloride 104 Carbon Dioxide 25 Anion Gap 8.0 BUN 15 Creatinine 1.07 Est Cr Clr Drug Dosing 67.7 Est GFR ( Amer) 78.8 Est GFR (Non-Af Amer) 68.0 BUN/Creatinine Ratio 13.9 Glucose 100 H Calcium 9.4 Magnesium Total Bilirubin 1.0 AST 19 ALT 16 Alkaline Phosphatase 126 H Troponin I < 0.015 Total Protein 8.8 H Albumin 3.7 Globulin 5.1 H Albumin/Globulin Ratio 0.7 L Triglycerides Cholesterol LDL Cholesterol, Calc VLDL Cholesterol, Calc HDL Cholesterol Cholesterol/HDL Ratio Specimen Hemolysis COVID-19 Eval Order SARS-CoV-2 (PCR) 01/16/21 01/16/21 01/16/21 14:40 14:40 16:52 WBC RBC Hgb Hct MCV MCH MCHC RDW Std Deviation RDW Coeff of Swetha Plt Count MPV Immature Gran % (Auto) Neut % (Auto) Lymph % (Auto) Ferry % (Auto) Eos % (Auto) Baso % (Auto) Neut # (Auto) Lymph # (Auto) Ferry # (Auto) Eos # (Auto) Baso # (Auto) Immature Gran # (Auto) PT INR APTT PTT Ratio Sodium Potassium Chloride Carbon Dioxide Anion Gap BUN Creatinine Est Cr Clr Drug Dosing Est GFR ( Amer) Est GFR (Non-Af Amer) BUN/Creatinine Ratio Glucose Calcium Magnesium Total Bilirubin AST ALT Alkaline Phosphatase Troponin I < 0.015 Total Protein Albumin Globulin Albumin/Globulin Ratio Triglycerides Cholesterol LDL Cholesterol, Calc VLDL Cholesterol, Calc HDL Cholesterol Cholesterol/HDL Ratio Specimen Hemolysis COVID-19 Eval Order Covid19 at [facility] SARS-CoV-2 (PCR) NEGATIVE 01/16/21 01/17/21 01/17/21 22:07 04:32 04:32 WBC 12.46 H RBC 5.13 Hgb 15.7 Hct 46.2 MCV 90.1 MCH 30.6 MCHC 34.0 RDW Std Deviation 48.9 H RDW Coeff of Swetha 14.7 H Plt Count 220 MPV 10.1 Immature Gran % (Auto) 0.2 Neut % (Auto) 88.1 Lymph % (Auto) 6.2 Ferry % (Auto) 5.5 Eos % (Auto) 0.0 Baso % (Auto) 0.0 Neut # (Auto) 10.97 H Lymph # (Auto) 0.77 L Ferry # (Auto) 0.69 H Eos # (Auto) 0.00 Baso # (Auto) 0.00 Immature Gran # (Auto) 0.03 H PT INR APTT PTT Ratio Sodium 134 L Potassium 5.0 D Chloride 104 Carbon Dioxide 25 Anion Gap 5.0 BUN 20 H Creatinine 1.29 Est Cr Clr Drug Dosing 56.1 Est GFR ( Amer) 62.9 Est GFR (Non-Af Amer) 54.3 BUN/Creatinine Ratio 15.3 Glucose 152 H Calcium 9.3 Magnesium 2.4 Total Bilirubin AST ALT Alkaline Phosphatase Troponin I < 0.015 < 0.015 Total Protein Albumin Globulin Albumin/Globulin Ratio Triglycerides 59 Cholesterol 164 LDL Cholesterol, Calc 84 VLDL Cholesterol, Calc 12 HDL Cholesterol 68 Cholesterol/HDL Ratio 2 Specimen Hemolysis COVID-19 Eval Order SARS-CoV-2 (PCR) Diagnostic Findings echocardiogram performed today did not reveal any pericardial effusion. Normal LV systolic function with ejection fraction of 55-60 percent. No regional wall motion abnormalities. (1) Chest pain Chest pain type: unspecified Qualified Code(s): R07.9 - Chest pain, unspecified
--- NOTE | 2021-01-17 10:44 | XCELERA ---
[id number] \\[email or web address]\[id number]
--- NOTE | 2021-01-17 12:32 | Electrocardiogram Report ---
Test Reason : Blood Pressure : / mmHG Vent. Rate : 060 BPM Atrial Rate : 060 BPM P-R Int : 174 ms QRS Dur : 132 ms QT Int : 430 ms P-R-T Axes : 048 -34 016 degrees QTc Int : 430 ms Atrial-paced rhythm Left axis deviation Right bundle branch block Abnormal ECG When compared with ECG of 16-JAN-2021 13:01, Electronic atrial pacemaker has replaced Sinus rhythm Left anterior fascicular block is no longer Present Confirmed by Leighton Voss ([id number]) on 01/17/2021 12:32:04 PM Referred By: REFERRED SELF Confirmed By:Leighton Voss
--- NOTE | 2021-01-17 13:08 | Discharge Summary ---
Date of Service January 17, 2021 Admission HPI Per Admitting Provider This is a 75-year-old male with past medical history of hyperlipidemia, gastritis, and recent pacemaker placement on 01/13 for "chronotropic incompetence" that presents today complaining of chest pain. Patient is acco mpanied by his and both are good historians. Patient tells me that he had the pacer inserted by Dr. Rosario on 01/11 as an outpatient. He did not remain in the hospital. He was able to go home and did not have any issues at first. The device was placed in the right side as the patient is a left-handed gentleman who enjoys hunting so was felt that this would be a better way to accommodate the stock of a weapon. Patient did his best to keep his right arm down as much as possible. He tells me that yesterday he did some leaf blowing but not move his arm around very much. This morning he was able to get up and went to the post office with no issues. However, soon after returning he had a sudden sharp pain in his chest. This was in the right lower rib border with radiation around to the back. He also noted some pain in his mid thoracic region as well. He felt this was very severe and unrelenting, it is now improved only with the ministration of morphine in the emergency room. There is a very pleuritic character to it. Work-up in the emergency room was essentially unrevealing. CT scan showed only minimal pleural effusion but was negative for pneumothorax. There was a que stion about the tip of the ventricular lead closely approximating the myocardium, "a small perforation would be impossible to exclude" as per radiology. The pacemaker was interrogated without any significant findings and leads are felt to be well placed. ER physician discussed with Dr. Rosario, recommending observation on a monitored bed and 2D echo in the morning. He also recommended treatment for possible pericarditis. Admission Exam Per Admitting Provider Constitutional: cooperative; no acute distress Neck: trachea midline, no thyromegaly Respiratory: normal respiratory effort Auscultation: lungs clear to auscultation bilaterally; no crackles, no rales, no rhonchi and no wheezes Cardiovascular: Rate/Rhythm: regular rate and regular rhythm Heart Sounds: normal S1 and normal S2 Gastrointestinal (Abdomen): Inspection/Auscultation: abdomen normal to inspection Percussion/Palpation: abdomen soft; abdomen nontender, no guarding, abdomen not rigid and no hepatosplenomegaly Musculoskeletal: Palpable right sided mid thoracic paraspinal muscle spasm with accompanying tenderness Skin: no rashes, warm and dry Principal Diagnosis Chest pain 2/2 pacer lead dysfunction Discharge Exam General: A&Ox3. NAD. Cooperative. HEENT: Atraumatic, normocephalic. Visual acuity and hearin gintact. Thorax: Pacer nontender, no overlying erythema/crepitus. Surgical incision well healing without discharge, erythema, dehiscence, or pain. Pulm: CTAB A&P. -wheezes, -rales, -rhonchi. Symmetrical chest rise. No increase work of breathing. No respiratory distress. Cardiac: RRR, -mrg. Radial pulses intact and symmetrical. Abdominal: Nontender, nondistended, soft. BS present. Ext: Warm, dry. Moving all extremities equally Discharge Data Allergies Allergy/AdvReac Type Severity Reaction Status Date / Time sulindac Allergy Severe SHORT OF Verified 01/16/21 15:15 BREATH Consultations 01/16/21 14:31 ED Decision to Admit Stat 01/16/21 16:34 Consult Cardiology Routine Ordered Studies 01/16/21 13:30 CT angio chest dissec wo/w con Stat Hospital Course (1) Chest pain: Mr. Villagomez was seen for evaluation of 10/10 intermittent sharp/shocky left-sided chest pain 6 days after receiving a permanent pacemaker placement. Noncardiac chest pain, suspect pacer pain 10/10 pain improved to 0/10 with anti-inflammatory treatment CTA 2-lead cardiac pacemaker has been placed. The tip of the ventricular lead closely approximates the myocardium. A small perforation would be impossible to exclude. This is not well evaluated by CT due to cardiac motion and metallic streak artifact. Trace fluid and subcutaneous gas is identified around the pacemaker in the right chest wall. This is likely due to recent implantation. Clinical correlation will be required. There is pericardial thickening and trace pericardial effusion. CT discussed with cardiology occluding trace leukocytosis, imaging findings were felt to be due to postsurgical change and he clinically improved without intervention. Patient received prednisone on admission, suspect steroid effect. Pain thought to be due to pacer leads improved, on discussion with cardiology patient was discharged with twice daily colchicine and aspirin with follow-up the next day to outpatient cardiology Symptoms could be consistent with lead migration to pericardial space, however responded well to colchicine/analgesics and on review of echo/CT by cardiology did not recommend lead revision at this time. Continue conservative management with close follow-up as mentioned above Asymptomatic at time of discharge Creatinine was normal, troponin was negative, EKG without acute findings during admission. Covid test was negative. TTE: No significant change from 714/ study. Normal LV SF. EF 55-60%. No regional wall motion abnormalities. Mild to moderate tricuspid regurg. No pericardial effusion. Pacemaker lead appreciated in the right ventricle. (2) HLD (hyperlipidemia): Continued on pravastatin while inpatient, resumed at discharge (3) Gastritis and duodenitis: Pantoprazole was increased to twice daily while being given indomethacin, discharged to continue pantoprazole twice daily while on aspirin/colchicine Total Time Total Time Spent Total Time Spent (In Minutes): Total time spent preparing discharge on day of discharge 40 minutes including coordination of care, direct clinical care, review of labs and images and documentation. Discharge Plan Discharge Items Patient Disposition: Home - Self-Care Reason For Visit: CHEST PAIN, BACK PAIN, DR REF Discharge Diagnosis: Chest pain, suspect 2/2 pacer Activity: Resume your previous activity Non-emergency contact: Primary Care Provider Call non-emergency contact if: you have any medication questions, your symptoms worsen, your pain is not controlled, your pain is worsening and you have a fever Follow-up/Referrals: Shiva He MD [Primary Care Provider] - José Miguel Dugan DO [Physician] - Diet: Heart Healthy Addtl Attending Provider Instructions: You are seen in the hospital for chest pain which resolved overnight. On review of your labs images with cardiology it was felt that your pain was likely due to your pacer placement, no signs of heart damage were appreciated. You have been discharged with medications as noted below, with follow-up to your PCP and cardiology as noted below. You have been prescribed a medication, colchicine. Please take colchicine 0.6 mg twice daily for at least 1 week. Your cigar making machine operator will advise you at your follow-up appointment whether you should extend the duration of this medication. The dose of your aspirin has been temporarily changed at cardiology's recommendation. Please take aspirin 325 mg every 6 hours for least 1 week, and discuss whether this dose should be extended at your cardiology follow-up tomorrow. This temporarily replaces your low-dose (81 mg) aspirin. Please discuss when you should switch back to your low-dose aspirin at your follow-up appointment. Aspirin and colchicine can cause stomach discomfort and contribute ulcers. To help protect against this your pantoprazole has been increased from 40 mg daily to 40 mg twice daily temporarily. Please discuss this medication at your follow-up appointment, and if you experience any worsening stomach pain, bloody or black bowel movements, or other new/concerning symptoms please contact your primary care provider or return to the ER for evaluation if you are very concerned. A followup appointment is being scheduled for you with your primary care provide r. You should be seen seen within 2 weeks. You should receive a call to confirm this appointment. If you do not receive a call within 48 hours to confirm this appointment, or need to change this appointment, please call the provider's office at [phone]. A followup appointment is being scheduled for you with cardiologyDr. For again tomorrow. You should receive a call to confirm this appointment. If you do not receive a call within 48 hours to confirm this appointment, or need to change this appointment, please call the provider's office at . If you develop any new or worsening symptoms including fever, chills, sweats, chest pain, chest pressure, difficulty breathing, uncontrolled nausea/vomiting, rash, wheezing, passing out or nearly passing out, bleeding, black/bloody bowel movements, or other new or concerning symptoms please call your primary care physician at [phone], or call 911 for re-evaluation in the emergency department if you are very concerned. Pending Studies at Discharge: No Stand-Alone Forms: My [facility] [employer], Smoking Cessation Medications and DC Order Prescriptions: New colchicine [Colcrys] 0.6 mg Tablet 0.6 mg PO BID 7 Days Qty: 14 RF: 0 aspirin 325 mg tablet,delayed release (DR/EC) 325 mg PO Q6H 7 Days Qty: 28 RF: 0 Continued nitroglycerin 0.4 mg Tablet, Sublingual 0.4 mg sublingual UD PRN (Reason: Chest Pain) RF: 0 gabapentin 400 mg Capsule 400 mg PO TID RF: 0 pravastatin 10 mg Tablet 10 mg PO Q OTHER DAY RF: 0 loratadine 10 mg Tablet 10 mg PO QPM RF: 0 cholecalciferol (vitamin D3) 1,000 unit Capsule 1,000 unit PO QPM RF: 0 acetaminophen [Tylenol Extra Strength] 500 mg tablet 1,000 mg PO Q6 PRN (Reason: Pain) RF: 0 Changed pantoprazole 40 mg Tablet,Delayed Release (Dr/Ec) 40 mg PO BID Qty: 30 RF: 0 Discontinued aspirin 81 mg Tablet,Delayed Release (Dr/Ec) 81 mg PO Q OTHER DAY RF: 0 Discharge Orders: Discharge Order (Routine); Ordered 01/17/21 Ordered By: Orlin Patino Admission Data Admit Date/Time: 01/16/21 15:58 Attending Provider: Orlin Patino Admit Provider: Panchito De Oliveira Primary Care Provider: Shiva He Other Providers: Panchito De Oliveira ; Fausto Rosario Coding Level of Care Code 84145 OBS Care - Discharge Diagnoses Chest pain R07.9 Chest pain type: unspecified HLD (hyperlipidemia) E78.5 Gastritis and duodenitis K29.90
== END 2021-01-17 16:52 | disposition home or self-care (01) ==
LOC: EDINP 12:58 → ED 12:58 → SUATTDRO 15:58 → 2S 17:34

== ENCOUNTER 2022-05-23 07:52 | Inpatient (IN) ==
--- NOTE | 2022-05-14 09:27 | PAT Medication Instructions ---
Medication Instructions Date of Service May 14, 2022 Home Medications cholecalciferol (vitamin D3) 25 mcg (1,000 unit) capsule 1,000 unit PO QPM loratadine 10 mg tablet 10 mg PO QPM pravastatin 10 mg tablet 20 mg PO Q OTHER DAY nitroglycerin 0.4 mg sublingual tablet 0.4 mg sublingual UD PRN acetaminophen 500 mg tablet (Tylenol Extra Strength) 1,000 mg PO Q6 PRN metoprolol succinate 25 mg tablet,extended release 24 hr 12.5 mg PO PM aspirin 81 mg tablet,delayed release 81 mg PO Q OTHER DAY pantoprazole 40 mg tablet,delayed release 20 mg PO QAM Continue as directed pravastatin 10 mg tablet 20 mg PO Q OTHER DAY nitroglycerin 0.4 mg sublingual tablet 0.4 mg sublingual UD PRN(if needed) ASK your prescriber and surgeon aspirin 81 mg tablet,delayed release 81 mg PO Q OTHER DAY Take morning of surgery With a small sip of water, OTHERWISE NOTHING TO EAT OR DRINK AFTER MIDNIGHT: acetaminophen 500 mg tablet (Tylenol Extra Strength) 1,000 mg PO Q6 PRN(if needed) pantoprazole 40 mg tablet,delayed release 20 mg PO QAM Take evening before surgery cholecalciferol (vitamin D3) 25 mcg (1,000 unit) capsule 1,000 unit PO QPM loratadine 10 mg tablet 10 mg PO QPM acetaminophen 500 mg tablet (Tylenol Extra Strength) 1,000 mg PO Q6 PRN(if needed) metoprolol succinate 25 mg tablet,extended release 24 hr 12.5 mg PO PM Other Notes If you have any questions please call us at [phone] or [phone] or [phone] or [phone]
--- NOTE | 2022-05-15 11:54 | Anesthesiology Consultation ---
Date of Service May 15, 2022 Assessment & Plan (1) Encounter for pre-operative examination: - March pacemaker report or any more recent pacemaker report if available. - [employer] pacemaker rep will be needed DOS. Yin made aware. - cardiology 05/09/22: "...preop evaluation...left shoulder antibiotic spacer...no sob or chest pain...persistent cough that occasionally is productive of clear sputum...status post dual-chamber pacemaker, Medtronic...negative stress echo for ischemia at 70% of max predicted heart rate...very frequent PACs and occasional PVCs...concerning his cough, it's likely post nasal drip given his frequently runny nose and the cough being worse towards morning...two weeks of Flonase or Nasacort...pacer download from March showed a few runs of NSVT but his in clinic device check today showed only 3 short SVT runs, no NSVT...pacing atrially most of the time...not having any concerning anginal symptoms...average risk for cardiac complication surrounding his surgeries-less than 1% per NSQIP calculator...EKG was reviewed which shows an atrial paced rhythm without ischemic changes...will have an echo prior to surgery but barring any significant changes he can proceed with his surgery without further cardiac testing...will need a magnet place on his pacer or program DOO..." Subsequent echo showed no significant change to 2020 echo. Chart Review Chart Review: Acceptable Risk for Surgery, Pending: Refer to Additional Notes / Consult section and Patient seen in Pre Admission Testing Consults Requested none Teaching & Discussion Pre-Anesthesia Teaching/Discussion Notes: Instructed NPO after midnight before surgery, except medications with 15 cc of water. Medication instructions provided according to the PAT guidelines. ASA ASA4 Proposed Anesthesia Anesthesia Type: General Regional Regional Laterality: Left Site: Interscalene Anesthesia Line Insertion: Arterial line Risk / Benefits Reviewed With: PT / POA / Parent / Guardian, Accepts Plan and Informed Consent Obtained History Surgery Operation Date: 05/23/22 10:40 Proposed Procedures p Left Shoulder Removal of Infected Total Shoulder Arthroplasty, Placement of Antibiotic Cement Spacer - Darius Guadarrama M.D. Height/Weight Height: 5 ft 9.5 in Weight: 85.8 kg Allergies Allergy/AdvReac Type Severity Reaction Status Date / Time sulindac Allergy Severe SHORT OF Verified 05/23/22 08:26 BREATH Medications Home Medications Medication Instructions Recorded Confirmed Last Taken cholecalciferol (vitamin D3) 25 1,000 unit PO QPM 06/15/18 05/23/22 05/22/22 18:30 mcg (1,000 unit) capsule loratadine 10 mg tablet 10 mg PO QPM 06/15/18 05/23/22 05/20/22 pravastatin 10 mg tablet 20 mg PO Q OTHER DAY 06/15/18 05/23/22 05/22/22 18:30 nitroglycerin 0.4 mg sublingual 0.4 mg sublingual UD PRN Chest Pain 01/26/19 05/23/22 Unknown tablet acetaminophen 500 mg tablet 1,000 mg PO Q6 PRN Pain 10/17/20 05/23/22 2 Days Ago (Tylenol Extra Strength) ~05/21/22 metoprolol succinate 25 mg 12.5 mg PO PM 05/02/22 05/23/22 05/22/22 18:30 tablet,extended release 24 hr aspirin 81 mg tablet,delayed 81 mg PO Q OTHER DAY 05/13/22 05/23/22 05/22/22 18:30 release pantoprazole 40 mg tablet,delayed 20 mg PO QAM 05/13/22 05/23/22 05/23/22 06:00 release Miralax 30 ml PO DAILY 05/15/22 05/23/22 05/22/22 18:30 Active Medications Generic Name Dose Route Start Last Admin Trade Name Maksim PRN Reason Stop Dose Admin Acetaminophen 1,000 mg 05/23/22 06:00 05/23/22 08:34 Acetaminophen 500 Mg Tab PO 05/23/22 18:00 1,000 mg PREOP JOVANNA Administration Celecoxib 200 mg 05/23/22 06:00 05/23/22 08:35 Celebrex 200 Mg Cap PO 05/23/22 18:00 200 mg PREOP JOVANNA Administration Dexamethasone 8 mg 05/23/22 06:00 05/23/22 08:34 Dexamethasone 4 Mg Tab PO 05/23/22 18:00 8 mg PREOP JOVANNA Administration Famotidine 20 mg 05/23/22 06:00 05/23/22 08:36 Famotidine 20 Mg Tab PO 05/23/22 18:00 20 mg PREOP JOVANNA Administration Gabapentin 300 mg 05/23/22 06:00 05/23/22 08:35 Gabapentin 300 Mg Cap PO 05/23/22 18:00 300 mg PREOP JOVANNA Administration Metoclopramide HCl 10 mg 05/23/22 06:00 05/23/22 08:36 Metoclopramide Hcl 10 Mg Tablet PO 05/23/22 18:00 10 mg PREOP JOVANNA Administration Additional Notes: Pt also reported taking Miralax bid. He was advised do NOT take Miralax day of surgery, can be taken evening before surgery. This was also written on provided medication instruction paper. He verbalized full understanding and agreement, denied additional questions or concerns. NPO Date Last Intake of Fluids: 05/23/22 Time Last Intake of Fluids: 07:00 Last Intake of Fluids Comment: med w / sip water Date Last Intake of Solids: 05/22/22 Time Last Intake of Solids: 18:00 Past Medical History Medical History Asthma no recent issues/no inhaler Bifascicular block Degenerative disc disease Esophagitis Gastritis and duodenitis Hiatal hernia History of kidney stones passed on own History of prostate cancer s/p prostatectomy HLD (hyperlipidemia) [place] (hard of hearing) Male erectile disorder Neuropathy pt denies Nocturia Obesity Pacemaker placed 01/2021 > Medtronic > "for extra heart beats" follows with Dr. Khushbu Thacker, and Dr. Dugan > last checked approx a week ago Poor urinary stream Sleep apnea cpap-compliant TIA (transient ischemic attack) 2020 Urinary frequency Patient denies h/o seizures, heart attack, heart failure, DM, HTN, blood clots or blood transfusions. Exercise / Class Metabolic Activity III < 4 Walking/Shop/Light housework (denies chest discomfort or shortness of breath with 1 FOS) Past Family History Family History Mother Diabetes Son Esophageal cancer Other Heart disease Past Surgical History Surgical History History of colonoscopy History of esophagogastroduodenoscopy (EGD) History of open reduction and internal fixation (ORIF) procedure LLE History of prostate biopsy History of prostatectomy History of reverse total replacement of left shoulder joint 02/25/19 Grade 2 view, MAC 3, ETT 8 + PNB. History of tonsillectomy S/P appendectomy Past Anesthesia History No Hx of Anesthesia Complications and No Family Hx of Anesthesia Complications History of PONV No Hx of PONV and No Hx of Motion Sickness Social History Smoking Status: Former smoker tobacco type: cigarettes Do You Dip or Chew Tobacco: No Smoking End Date: 40 yrs Hx Alcohol Use: Yes Alcohol type: beer alcohol intake frequency: holidays/special occasions only Hx Substance Use: No substance use type: does not use Review of Systems Patient denies chest pain, shortness of breath, dyspnea on exertion, fever, chills, cough, wheezing, or palpitations. Physical Exam Vital Signs Last Vital Signs Temp 36.6 C 05/23/22 08:15 Pulse 62 05/23/22 08:15 Resp 20 05/23/22 08:15 BP 148/75 H 05/23/22 08:15 Pulse Ox 97 05/23/22 08:15 O2 Del Method Room Air 05/23/22 08:15 Vitals BP 124/72 P 70 TEMP 97.4 SP02 97% on RA RESP 17 Physical Full cervical extension range of motion without pain TMD 3.5 finger breadths Mallampati Score 3 Dentition: loose left lower side tooth; denies chipped teeth, caps/crowns, implants or bridges Lungs: normal respiratory effort. Clear throughout to auscultation, no adventitious breath sounds Cardiac: regular rate and rhythm, no murmurs noted Carotid arteries: negative bruit bilat Constitutional no acute distress and not obese ENMT Mouth: no dentition abnormality Thyromental Distance: > or= 3.5 Finger Breadths Mallampati Class: II Neck normal visual inspection and trachea midline; neck extension not limited and no facial hair Respiratory normal respiratory effort Auscultation: lungs clear to auscultation bilaterally Cardiovascular Rate/Rhythm: regular rate (paced) and regular rhythm Heart Sounds: no murmur Vessels: no carotid bruit Chest (Breasts) Chest: + pacemaker (right subclavian) Musculoskeletal Spine: normal cervical ROM and no pain with cervical ROM Extremities: extremities normal to inspection; full ROM of extremities Neurologic moves all extremities Motor/Sensory: no sensory deficit Psychiatric Orientation: alert and oriented x 3 Lab Results Anesthesia Preop Results Results Anesthesia Widget: WBC 5.39 K/ul (4.8-10.8) 05/15/22 Hgb 14.8 g/dl (14.0-18.0) 05/15/22 Hct 44.6 % (42.0-52.0) 05/15/22 Plt 214 K/uL (130-400) 05/15/22 Na 138 mmol/L (136-145) 05/15/22 K 4.1 mmol/L (3.5-5.1) 05/15/22 Cl 104 mmol/L (98-107) 05/15/22 CO2 29 mmol/L (21-32) 05/15/22 BUN 20 mg/dl (6-23) 05/15/22 Creat 0.87 mg/dl (0.6-1.4) 05/15/22 Glucose Level 86 mg/dl (70-99(Fasting)) 05/15/22 PT 10.9 Seconds (9.0-12.0) 05/15/22 PTT 27.9 Seconds (21.0-31.0) 05/15/22 INR 1.0 (0.9-1.1) 05/15/22 HA1c 5.9 % (4.5-5.6) H 05/15/22 Urine Color Yellow 05/15/22 Urine Appearance Clear (Clear) 05/15/22 Urine pH 6.5 (4.5-7.5) 05/15/22 Urine Specific Hope 1.019 (1.000-1.030) 05/15/22 Urine Protein Negative (Negative) 05/15/22 Urine Glucose (UA) Negative (Negative) 05/15/22 Urine Ketones Negative (Negative) 05/15/22 Urine Blood Negative (Negative) 05/15/22 Urine Nitrite Negative (Negative) 05/15/22 Urine Bilirubin Negative (Negative) 05/15/22 Urine Urobilinogen Negative (Negative) 05/15/22 Urine Leukocyte Esterase Negative (Negative) 05/15/22 SARS-CoV-2, RNA, NAAT NEGATIVE (NEGATIVE) 05/23/22 Blood Type O Positive 05/15/22 Antibody Screen NEGATIVE 05/15/22 Testing Electrocardiogram Date: 05/09/22 Atrial paced rhythm, rate 61 bpm Left axis deviation [id number] Chest X-Ray Date: 05/15/22 PA and lateral chest radiographs are compared to chest x-ray and chest CT dated 01/16/2021. A 2-lead cardiac pacemaker is unchanged in position and partially obscures the right upper chest. The heart is mildly enlarged and noting atherosclerotic calcification of the thoracic area. The pulmonary vasculature is noncongested. Emphysema and chronic interstitial thickening is similar to previous. There is bibasilar scarring/atelectasis. Trace pleural effusions are suggested on the lateral projection. There is no airspace consolidation typical for pneumonia or pneumothorax. The skeletal structures are osteopenic. The bony thorax appears intact. A left shoulder arthroplasty is in place. IMPRESSION: 1. Cardiomegaly and cardiac pacemaker without radiographic evidence of congestiv e failure. 2. Emphysema. 3. Trace pleural effusions. Echocardiogram Date: 05/14/22 EF 60% No LV regional wall motion abnormalities No LVH Grade I diastolic dysfunction Dilated RV Pacemaker lead noted in RV Dilated RA Calcified, tricuspid aortic valve without stenosis Mild aortic insufficiency Trace to mild mitral regurgitation Mild tricuspid regurgitation No significant change compared to previous study from 11/17/2020 Stress Test Date: 12/27/20 Exercise METS 8.5 MPHR 74% Normal LV wall motion Negative for ischemia at 74% MPHR COVID-19 Risk Screen Screening Information COVID-19 Screen Date: 05/15/22 Exposure 21 Days Family/Household +COVID Last 21 Days: No Exposure 10 Days Any COVID Exposure Last 10 Days: No Symptoms Last 10 Days Experienced COVID Sx Last 10 Days: No + COVID 0-90 Days COVID + in Last 0-90 Days: No
--- NOTE | 2022-05-22 18:35 | History & Physical Report ---
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 I advised him and his that the only way to definitively clear the infection would be to remove his previous implants, place an antibiotic cement spacer and treat him with long-term IV antibiotics to clear the infection, then reimplant a reverse total shoulder arthroplasty once the infection is definitively cleared. He voiced understanding of this. We will plan for stage I of this procedure with removal of his previous left total shoulder implants and placement of an antibiotic cement spacer. Risks, benefits, and alternatives of surgery were explained in detail. The surgical procedure, as well as postoperative recovery and rehabilitation, was also explained in detail. Risks include bleeding; infection; damage to surrounding structures such as nerves, blood vessels, and tendons that run in the area; persistent pain, numbness, weakness, or stiffness; hardware failure or failure of the repair; or need for further surgery. The patient understands all of this and wishes to proceed with surgery. Risks will be reviewed on the day of surgery and informed consent obtained. History of Present Illness Chief Complaint: Left shoulder pain Primary Care Provider: hSiva He MD 04/23/22 - Left shoulder fluoroscopically guided aspiration 02/25/19 - Left reverse total shoulder arthroplasty with biceps tenodesis Mr. Villagomez returns. Again, he is a 76-year old male who is over 3 years out from surgery and continues to have problems with his left shoulder. He notes pain in his shoulder on a relatively constant basis, but with radiation up into his neck and down his arm towards his elbow, but not really into his hand. He does not really note reproduction of the symptoms with turning his neck 1 way or the other. He still maintains fairly good motion of the shoulder and good strength with minimal discomfort with activities. He again denies ever having any problems with his incision such as redness, swelling, or drainage. He denies any fevers, chills, or night sweats. He feels like this pain has pro gressively worsened over the past year. Allergies Allergy/AdvReac Type Severity Reaction Status Date / Time sulindac Allergy Severe SHORT OF Verified 05/13/22 08:34 BREATH Home Medications Medication Instructions Recorded Confirmed Type cholecalciferol (vitamin D3) 25 1,000 unit PO QPM 06/15/18 05/13/22 History mcg (1,000 unit) capsule loratadine 10 mg tablet 10 mg PO QPM 06/15/18 05/13/22 History pravastatin 10 mg tablet 20 mg PO Q OTHER DAY 06/15/18 05/13/22 History nitroglycerin 0.4 mg sublingual 0.4 mg sublingual UD PRN Chest Pain 01/26/19 05/13/22 History tablet acetaminophen 500 mg tablet 1,000 mg PO Q6 PRN Pain 10/17/20 05/13/22 History (Tylenol Extra Strength) metoprolol succinate 25 mg 12.5 mg PO PM 05/02/22 05/13/22 History tablet,extended release 24 hr aspirin 81 mg tablet,delayed 81 mg PO Q OTHER DAY 05/13/22 05/13/22 History release pantoprazole 40 mg tablet,delayed 20 mg PO QAM 05/13/22 05/13/22 History release Miralax 05/15/22 History Past Med/Surg History Medical History (Updated 05/22/22 @ 18:33 by Darius Guadarrama M.D.) Asthma no recent issues/no inhaler Bifascicular block Degenerative disc disease Esophagitis Gastritis and duodenitis Hiatal hernia History of kidney stones passed on own History of prostate cancer s/p prostatectomy HLD (hyperlipidemia) [place] (hard of hearing) Male erectile disorder Neuropathy pt denies Nocturia Obesity Pacemaker placed 01/2021 > Medtronic > "for extra heart beats" follows with Dr. Khushbu Thacker, and Dr. Dugan > last checked approx a week ago Poor urinary stream Sleep apnea cpap-compliant TIA (transient ischemic attack) 2020 Urinary frequency Surgical History (Updated 05/15/22 @ 11:46 by Annabella Singh PA-C) History of colonoscopy History of esophagogastroduodenoscopy (EGD) History of open reduction and internal fixation (ORIF) procedure LLE History of prostate biopsy History of prostatectomy History of reverse total replacement of left shoulder joint 02/25/19 Grade 2 view, MAC 3, ETT 8 + PNB. 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 He maintains good shoulder range of motion with at least 150 degrees of active abduction and good strength. Results & Data ([facility]) Diagnostic Findings Previous x-rays of the left shoulder from March 2022 were reviewed. Reverse total shoulder arthroplasty components in good position. He again has some osteolysis around the proximal end of the humeral implant, slightly worse compared to previous x-rays 1 year ago. No evidence of motion of the humeral implant. No obvious osteolysis around the glenoid implant. Three-phase bone scan from April 04 was negative, with no hyperemia on the flow or blood pool phase imaging. There was some tracer deposition around the implants, glenoid component greater than humeral, and therefore loosening cannot be excluded, but no obvious evidence of infection. Labs drawn 03/20/22 were reviewed: WBC 6.29 ESR 63 CRP 2.47 Alpha defensin lateral flow test from 04/23/22 was positive. Intraoperative cultures obtained on 04/23/22 are growing Cutibacterium (Propioni) acnes.
[~2022-05-23 07:52] MED LIST: ACETAMINOPHEN 500 MG TAB PO SCH; BUPIVACAINE 0.5 % 5 MG/1 ML PF 10ML VIAL ONE; CeleBREX 200 MG CAP PO SCH; FAMOTIDINE 20 MG TAB PO SCH; GABAPENTIN 300 MG CAP PO SCH; LR 15ML/HR IV SCH; METOCLOPRAMIDE HCL 10 MG TABLET PO SCH; TRANEXAMIC ACID 1,000 MG **IV Pre-op IV SCH; ceFAZolin 2000MG 2,000 MG/15 ML SYR IV SCH; dexAMETHasone 4 MG TAB PO SCH
--- NOTE | 2022-05-23 09:26 | History & Physical Bridge Note ---
Date of Service May 23, 2022 History & Physical Bridge Note I have examined the patient, reviewed the History & Physical and in the interval since the performance of the History & Physical I have noted the following changes of clinical significance: no changes noted
[2022-05-23] MEDS ORDERED: fentaNYL citrate 100 MCG/2 ML VIAL ONE (11:55)
[2022-05-23] MEDS ORDERED: LIDOCAINE 2% MPF LOCAL 5 ML VIAL INFIL ONE (11:55)
[2022-05-23] MEDS ORDERED: ROCURONIUM BROMIDE 10 MG/ML 5 ML VIAL IV ONE ×3 (11:55→13:47)
[2022-05-23] MEDS ORDERED: MIDAZOLAM HCL 1 MG/ML 2ML VIAL ONE (11:55)
[2022-05-23] MEDS ORDERED: PROPOFOL IV EMULSION 10 MG/ML 20 ML VIAL IV ONE ×2 (11:55→11:56)
[2022-05-23] MEDS ORDERED: VANCOMYCIN HCL 1000MG/20ML VIAL ONE (12:10)
[2022-05-23] MEDS ORDERED: PHENYLEPHRINE 100MCG/ML 5ML SYR ONE (13:47)
[2022-05-23] MEDS ORDERED: PHENYLEPHRINE HCL 10 MG/ML VIAL ONE (13:47)
[2022-05-23] MEDS ORDERED: SUGAMMADEX SODIUM 200 MG/2 ML VIAL IV ONE (15:52)
--- NOTE | 2022-05-23 15:52 | Post Operative Brief Note ---
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
[2022-05-23] MEDS ORDERED: ONDANSETRON INJ 2 MG/ML 2 ML VIAL IV PRN ×2 (16:11→17:34)
[2022-05-23] MEDS ORDERED: LABETALOL HCL IV 5 MG/ML 20ML IV PRN (16:11)
[2022-05-23] MEDS ORDERED: NALOXONE HCL 0.4 MG/1 ML VIAL/CARP IV PRN ×2 (16:11→17:34)
[2022-05-23] MEDS ORDERED: ATROPINE SULFATE 0.1 MG/ML 10ML SYR IV PRN (16:11)
[2022-05-23] MEDS ORDERED: PROMETHAZINE HCL 12.5 MG in SODIUM CHLORIDE 0.9% 50 ML IV PRN (16:11)
[2022-05-23] MEDS ORDERED: HYDROmorphone INJ 1 MG/ML SYRINGE IV PRN (16:11)
[2022-05-23] MEDS ORDERED: ePHEDrine sulfate 50 MG/ML AMP IV PRN (16:11)
[2022-05-23] MEDS ORDERED: FLUMAZENIL 0.1 MG/1 ML 10 ML VIAL IV PRN (16:11)
[2022-05-23] MEDS ORDERED: fentaNYL citrate 100 MCG/2 ML VIAL IV PRN (16:11)
--- NOTE | 2022-05-23 16:52 | Anesthesiology Progress Note ---
Date of Service May 23, 2022 Anesthesia Post Procedure Vital Signs Vital Signs: Temp Pulse Resp BP Pulse Ox O2 Del Method O2 Flow Rate 05/23/22 16:45 36.5 C 64 20 116/69 97 Room Air 05/23/22 16:30 63 18 114/73 98 Room Air 05/23/22 16:25 62 15 121/68 98 Room Air 05/23/22 16:15 61 14 117/73 100 Oxymask 11 05/23/22 16:06 36.2 C L 61 15 115/76 98 Oxymask 11 05/23/22 08:15 36.6 C 62 20 148/75 H 97 Room Air Pain Intensity Left Shoulder: Pain Intensity: 3 Transfer of Care Handoff Completed per policy Notes Mental Status: alert / awake / arousable Patient Amnestic to Procedure: Yes Nausea / Vomiting: adequately controlled Pain: adequately controlled Airway Patency, RR, SpO2: stable & adequate BP & HR: stable & adequate Hydration State: stable & adequate Anesthetic Complications: no major complications apparent
--- NOTE | 2022-05-23 17:26 | XRay Report ---
XR shoulder LT min 2V routine HISTORY: 76 years-old Male Post shoulder surgery left shoulder surgery COMPARISON: Chest radiograph May 15, 2022 TECHNIQUE: 2 views of the left shoulder FINDINGS: Status post removal of the total joint arthroplasty. Resorptive changes of the proximal humerus are r edemonstrated. Cement material is noted within the expected location of the absent humeral head with a metallic J-shaped structure in place within the proximal humerus. Expected postoperative soft tissu e swelling with deep tissue air. Satisfactory alignment. Mild cortical irregularity involves the late ral aspect of the proximal humerus. Healed chronic left mid clavicular fracture. IMPRESSION: Postoperative changes as above. ACT 112: Negative or not required by law. The above report was generated using voice recognition software. It may contain grammatical, syntax o r spelling errors. Electronically signed by: Abimael Harper M.D. 05/23/2022 5:24 PM
[2022-05-23] MEDS ORDERED: MAGNESIUM HYDROXIDE SUSP 30 ML UDC PO PRN (17:34)
[2022-05-23] MEDS ORDERED: SODIUM CHLORIDE 0.9% 1000ML 1,000 ML IV SCH (17:34)
[2022-05-23] MEDS ORDERED: bisacodyL 10 MG SUPP PR PRN (17:34)
[2022-05-23] MEDS ORDERED: NITROGLYCERIN SL 0.4 MG/TAB TAB SL PRN (17:34)
[2022-05-23] MEDS ORDERED: METOCLOPRAMIDE HCL INJ 5 MG/ML 2 ML VIAL IV PRN (17:34)
--- NOTE | 2022-05-23 18:03 | Hospitalist Consultation ---
Date of Consultation May 23, 2022 Assessment & Plan (1) Infection and inflammatory reaction due to other internal joint prosthesis, initial encounter: Left shoulder infected reversed arthroplasty 05/23/2022: S/p left shoulder irrigation and debridement, removal of infected arthroplasty components, placement of antibiotic spacer. 100 cc blood loss, uncomplicated by report Arthroplasty originally done 3 years previously Pain control, activity management, DVT prophylaxis per primary team Preoperative hemoglobin 14.8, preoperative creatinine 0.87, no electrolyte derangements preop, COVID-negative preop - Post-op XR:Status post removal of the total joint arthroplasty. Resorptive changes of the proximal humerus are redemonstrated. Cement material is noted within the expected location of the absent humeral head with a metallic J-shaped structure in place within the proximal humerus. Expected postoperative soft tissue swelling with deep tissue air. Satisfactory alignment. Mild cortical irregularity involves the lateral aspect of the proximal humerus. Healed chronic left mid clavicular fracture. - Surgical wound cultures pending, follow for speciation/sensitivites - 04/23/22 shoulder cx + for rare c. 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 Grade 1 diastolic dysfunction Preop EKG: QTc 440, rate 136, atrial paced rhythm similar to prior, no acute changes Average risk at preop evaluation without modifiable risk factors Low-dose aspirin has been increased to full dose for DVT PPx Continue metoprolol 12.5 mg nightly Continue pravastatin every other day GERD/esophageal spasm/history of dysphagia Continue pantoprazole, increase to 40mg daily while on full dose aspirin History of prostate cancer S/p prostatectomy 2008 with subsequent undetectable PSA NATIVIDAD - CPAP qhs Overall José Miguel is a 76-year-old male postop after removal of infected left shoulder hardware. He is currently euvolemic, clinically stable, and doing well. Vancomycin has been switched to daptomycin, is continued on rifampin, and has an antibiotic spacer in place; further recommendations are pending and ID consultation placed by Ortho. PICC line is in place. His comorbidities are currently stable, he is normotensive with a normal rate. His preop evaluation did not show any evidence of ischemia, and last stress echo did not show inducible ischemia at 70% max predicted heart rate. Recommend continuing medications as above, CBC/BMP daily, and medicine will follow along at this time. (2) Rotator cuff arthropathy of left shoulder: (3) S/P cardiac pacemaker procedure: (4) HLD (hyperlipidemia): (5) Gastritis and duodenitis: (6) Chest pain: (7) Sleep apnea: History of Present Illness Attending Physician: Darius Guadarrama History of Present Illness José Miguel is a 76-year-old male with a past medical history of hyperlipidemia, appendectomy, CAD, rotator cuff arthropathy who presented for scheduled removal of infected total shoulder arthroplasty with placement of antibiotic cement spacer. José Miguel is seen at the bedside postoperatively. He reports that he currently feels well, the nerve block is slowly wearing off. He is intact sensation to soft touch in his hands bilaterally, but it feels somewhat less strong on the left. He notices the sensation is coming back starting with his fifth digit while his thumbs still remains the most numb. He has no chest pain, chest pressure, shortness of breath, lightheadedness, dizziness postoperatively. He has been using the inspiratory spirometer. 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 He notes that he is unable to baseline to flex his right elbow more than 90 degrees and this limits his ability to eat, has not pursued surgical intervention for this as he was told he would lose a great deal of strength in order to reclaim range of motion. Otherwise has no concerns at bedside. Reports he did take his beta-genaro today. He has a history of GERD with difficulty tolerating high-dose aspirin. As his aspirin has been increased to full dose for DVT prophylaxis, patient is agreeable to increasing pantoprazole back to 40 mg temporarily, and then decreasing to 20 mg if doing well after he no longer needs increased dosing for prophylaxis. Other than this patient is comfortable with aspects of this plan, no further questions or concerns at bedside. Medications, allergies, social history reviewed. Patient is a full code. Allergies Allergy/AdvReac Type Severity Reaction Status Date / Time sulindac Allergy Severe SHORT OF Verified 05/23/22 08:26 BREATH Home Medications Medication Instructions Recorded Confirmed Type cholecalciferol (vitamin D3) 25 1,000 unit PO QPM 06/15/18 05/23/22 History mcg (1,000 unit) capsule loratadine 10 mg tablet 10 mg PO QPM 06/15/18 05/23/22 History pravastatin 10 mg tablet 20 mg PO Q OTHER DAY 06/15/18 05/23/22 History nitroglycerin 0.4 mg sublingual 0.4 mg sublingual UD PRN Chest Pain 01/26/19 05/23/22 History tablet acetaminophen 500 mg tablet 1,000 mg PO Q6 PRN Pain 10/17/20 05/23/22 History (Tylenol Extra Strength) metoprolol succinate 25 mg 12.5 mg PO PM 05/02/22 05/23/22 History tablet,extended release 24 hr aspirin 81 mg tablet,delayed 81 mg PO Q OTHER DAY 05/13/22 05/23/22 History release pantoprazole 40 mg tablet,delayed 20 mg PO QAM 05/13/22 05/23/22 History release Miralax 30 ml PO DAILY 05/15/22 05/23/22 History Patient History Medical History (Updated 05/23/22 @ 18:42 by Orlin Patino MD) Asthma no recent issues/no inhaler Bifascicular block Degenerative disc disease Esophagitis Gastritis and duodenitis Hiatal hernia History of kidney stones passed on own History of prostate cancer s/p prostatectomy HLD (hyperlipidemia) [place] (hard of hearing) Male erectile disorder Neuropathy pt denies Nocturia Obesity Pacemaker placed 01/2021 > Medtronic > "for extra heart beats" follows with Dr. Khushbu Thacker, and Dr. Dugan > last checked approx a week ago Poor urinary stream Sleep apnea cpap-compliant TIA (transient ischemic attack) 2020 Urinary frequency Surgical History History of colonoscopy History of esophagogastroduodenoscopy (EGD) History of open reduction and internal fixation (ORIF) procedure LLE History of prostate biopsy History of prostatectomy History of reverse total replacement of left shoulder joint 02/25/19 Grade 2 view, MAC 3, ETT 8 + PNB. 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 NAD. Cooperative. HEENT: Atraumatic, normocephalic. Vision/hearing intact. Pulm: CTAB A&P. -wheezes, -rales, -rhonchi. Symmetrical chest rise. No increased work of breathing. No respiratory distress. Cardiac: RRR. Radial pulses intact and symmetrical. Abdominal: Nontender, nondistended, soft. BS present. Ext: R elbow flexion limited RoM to 90* at baseline, no change. Refrigeration Tech strength 5/5 bilaterally. Radial pulse intact bilaterally. Sensation to soft touch intact bilaterally but qualitatively less strong/more numb on the L most notabily in the thumb but gradually improving per pt. Results & Data Results & Data ([facility]) Vital Signs (Past 12 Hours) Vital Signs Temp Pulse Pulse Resp BP Pulse Ox O2 Del Method 05/23/22 17:47 36.5 C 62 17 118/62 95 Room Air 05/23/22 17:15 36.6 C 64 17 110/64 97 Room Air 05/23/22 17:00 65 16 118/56 L 98 Room Air 05/23/22 16:45 36.5 C 64 20 116/69 97 Room Air 05/23/22 16:30 63 18 114/73 98 Room Air 05/23/22 16:25 62 15 121/68 98 Room Air 05/23/22 16:15 61 14 117/73 100 Oxymask 05/23/22 16:06 36.2 C L 61 15 115/76 98 Oxymask 05/23/22 08:15 36.6 C 62 20 148/75 H 97 Room Air O2 Flow Rate 05/23/22 17:47 05/23/22 17:15 05/23/22 17:00 05/23/22 16:45 05/23/22 16:30 05/23/22 16:25 05/23/22 16:15 11 05/23/22 16:06 11 05/23/22 08:15 PG Care Time/CCT Total # of Minutes Spent Total Time Spent with Patient: Total time spent is greater than 50% in coordination of care (as documented) at patient's floor/unit and/or counseling patient: Coding Level of Care Code INP/OBS CONSULT LVL 3, 45 MIN Diagnoses Infection and inflammatory reaction due to other internal joint prosthesis, initial encounter T84.59XA Rotator cuff arthropathy of left shoulder M12.812 S/P cardiac pacemaker procedure Z95.0 HLD (hyperlipidemia) E78.5 Gastritis and duodenitis K29.90 Chest pain R07.9 Chest pain type: unspecified Sleep apnea G47.30 (6) Chest pain Chest pain type: unspecified Qualified Code(s): R07.9 - Chest pain, unspecified
[2022-05-23] MEDS ORDERED: DAPTOmycin 300 MG in SYRINGE 0 ML IV SCH (18:30)
[2022-05-23] MEDS: ACETAMINOPHEN 500 MG TAB PO SCH ×2 (18:35→23:00)
--- NOTE | 2022-05-23 18:45 | Orthopedic Progress Note ---
Date of Service May 23, 2022 Assessment & Plan (1) Infection and inflammatory reaction due to other internal joint prosthesis, initial encounter: Plan: Status post stage I left revision total shoulder arthroplasty for infection. All previously placed reverse total shoulder arthroplasty components were removed, and antibiotic cement spacer implanted. -Previous aspirate cultures from 04/23 growing P. acnes, multiple new cultures obtained in the operating room today, Gram stain still pending. -We will start with antibiotic coverage with daptomycin and rifampin -Infectious disease consulted for definitive antibiotic plan -Will likely need PICC line for long-term antibiotic treatment -Plan for discharge once final antibiotic plan is formulated and necessary Home health arranged. -For now, very limited activity with that left shoulder. I really do not want him doing significant range of motion exercises. Admission and Anticipated Discharge Date Admission Date: May 23, 2022 Subjective Patient doing well after shoulder surgery today. Pain well controlled. Physical Exam Physical Exam: Left shoulder dressings are clean, dry, intact. Motor and sensory function is intact distally in his hand. Results & Data ([facility]) Vital Signs (Past 12 Hours) Vital Signs Temp Pulse Pulse Resp BP Pulse Ox O2 Del Method 05/23/22 18:15 36.6 C 68 18 115/69 96 Room Air 05/23/22 17:47 36.5 C 62 17 118/62 95 Room Air 05/23/22 17:15 36.6 C 64 17 110/64 97 Room Air 05/23/22 17:00 65 16 118/56 L 98 Room Air 05/23/22 16:45 36.5 C 64 20 116/69 97 Room Air 05/23/22 16:30 63 18 114/73 98 Room Air 05/23/22 16:25 62 15 121/68 98 Room Air 05/23/22 16:15 61 14 117/73 100 Oxymask 05/23/22 16:06 36.2 C L 61 15 115/76 98 Oxymask 05/23/22 08:15 36.6 C 62 20 148/75 H 97 Room Air O2 Flow Rate 05/23/22 18:15 05/23/22 17:47 05/23/22 17:15 05/23/22 17:00 05/23/22 16:45 05/23/22 16:30 05/23/22 16:25 05/23/22 16:15 11 05/23/22 16:06 11 05/23/22 08:15 Diagnostic Findings Postoperative x-rays show the antibiotic cement spacer in place.
[2022-05-23] MEDS: IBUPROFEN 600 MG TAB PO SCH (20:04)
[2022-05-23] MEDS: DOCUSATE SODIUM 100 MG CAP PO SCH (20:04)
[2022-05-23] MEDS: CHOLECALCIFEROL 1,000 UNITS 25 MCG TAB PO SCH (20:04)
[2022-05-23] MEDS: LORATADINE 10 MG TAB PO SCH (20:05)
[2022-05-23] MEDS: SENNA 8.6 MG TAB PO SCH (20:06)
[2022-05-23] MEDS: METOPROLOL SUCC 25MG EXT REL TAB PO SCH (20:54)
[2022-05-23] MEDS ORDERED: rifAMPin 300 MG CAPSULE PO SCH (21:00)
[2022-05-24] MEDS: IBUPROFEN 600 MG TAB PO SCH ×4 (03:11→20:03)
[2022-05-24] MEDS: ACETAMINOPHEN 500 MG TAB PO SCH ×4 (05:53→22:51)
[2022-05-24 06:36] LABS: Basophils # (auto) 0.02 K/uL (0-0.2); Basophils % (auto) 0.2 %; Eosinophils # (auto) 0.02 K/uL (0-0.50); Eosinophils % (auto) 0.2 %; Hematocrit (blood only) 37.7 % (42.0-52.0); Hemoglobin 12.7 g/dl (14.0-18.0); Immature Granulocytes # (auto) 0.02 K/uL (0.01-0.20); Immature Granulocytes % (auto) 0.2 %; Lymphocytes # (auto) 1.07 K/uL (1.2-3.4); Mean Corpuscular Hgb Conc 33.7 g/dL (32.0-36.0); Mean Corpuscular Volume 86.1 fL (80.0-100.0); Mean Platelet Volume 10.1 fL (9.4-12.4); Monocytes # (auto) 0.89 K/uL (0.11-0.59); Monocytes % (auto) 9.2 %; Neutrophils # (auto) 7.67 K/uL (1.40-6.50); Neutrophils % (auto) 79.2 %; Platelet Count 221 K/uL (130-400); RDW Coefficient of Variation 15.9 % (11.5-14.5); RDW Standard Deviation 50.4 fL (36.4-46.3); Red Blood Count 4.38 M/uL (4.70-6.10); White Blood Count 9.69 K/ul (4.8-10.8)
[2022-05-24 06:46] LABS: BUN Creatinine Ratio 25.3 (10-20); Calcium 8.9 mg/dl (8.5-10.1); Creatinine Clr Calc Pharmacy 68.3 ml/min; Est GFR (African American) 90.4 ml/min; Potassium 4.3 mmol/L (3.5-5.1)
[2022-05-24] MEDS: ASPIRIN 325 MG ECTAB PO SCH (08:56)
[2022-05-24] MEDS: POLYETHYLENE (MIRALAX) 17 GM PACK PO SCH (08:56)
[2022-05-24] MEDS: MULTIVITAMIN TAB PO SCH (08:56)
[2022-05-24] MEDS: PANTOprazole 40 MG TAB PO SCH (08:56)
[2022-05-24] MEDS: DOCUSATE SODIUM 100 MG CAP PO SCH ×2 (08:56→20:05)
[2022-05-24] MEDS ORDERED: PANTOprazole 40 MG TAB PO SCH (09:00)
[2022-05-24] MEDS: cefTRIAXone SODIUM 2,000 MG in DEXTROSE 5% 50 ML IV SCH (09:06)
--- NOTE | 2022-05-24 10:03 | Orthopedic Progress Note ---
Date of Service May 24, 2022 Assessment & Plan (1) Infection and inflammatory reaction due to other internal joint prosthesis, initial encounter: Plan: Postop day 1 status post explant hardware with implantation of antibiotic spacer left shoulder Currently, intraoperative cultures are negative to date. Preoperative cultures were Proprioni acnes. Discussed case with medicine service. Patient switched from daptomycin to ceftriaxone 2 g daily treating with preoperative cultures noted. Dr. Guadarrama has spoken to infectious disease team. (Dr Tammy Samano). Consult has been placed and they will be speaking to the patient hopefully today. Once ID input available, we will likely plan for PICC line pending their recommendations Pain management as written. Appreciate hospitalist coverage Await ID input. Admission and Anticipated Discharge Date Admission Date: May 23, 2022 Subjective Postop day 1 Patient sitting up in bed awake and alert. No complaints this morning. Pain is controlled. Multiple questions about his infection. Answered to the best of my ability. Patient understands that he will need long-term antibiotics postoperatively for at least 6 weeks. No new complaints at this time. Physical Exam Physical Exam: Sling is in place. Dressings are clean, dry, and intact. He is moving his fingers well. He has good wrist range of motion. Sensation is mostly intact in his fingers and cap refills less than 2 seconds Results & Data ([facility]) Vital Signs (Past 12 Hours) Vital Signs Temp Pulse Resp BP Pulse Ox O2 Del Method 05/24/22 07:39 36.4 C L 85 16 139/76 98 Room Air 05/24/22 03:02 36.5 C 61 18 115/71 97 Room Air Laboratory Results Laboratory Results WBC 9.69 K/ul (4.8-10.8) 05/24/22 06:01 RBC 4.38 M/uL (4.70-6.10) L 05/24/22 06:01 Hgb 12.7 g/dl (14.0-18.0) L 05/24/22 06:01 Hct 37.7 % (42.0-52.0) L 05/24/22 06:01 MCV 86.1 fL (80.0-100.0) 05/24/22 06:01 MCH 29.0 pg (25.0-34.0) 05/24/22 06:01 MCHC 33.7 g/dL (32.0-36.0) 05/24/22 06:01 RDW Std Deviation 50.4 fL (36.4-46.3) H 05/24/22 06:01 RDW Coeff of Swetha 15.9 % (11.5-14.5) H 05/24/22 06:01 Plt Count 221 K/uL (130-400) 05/24/22 06:01 MPV 10.1 fL (9.4-12.4) 05/24/22 06:01 Immature Gran % (Auto) 0.2 % 05/24/22 06:01 Neut % (Auto) 79.2 % 05/24/22 06:01 Lymph % (Auto) 11.0 % 05/24/22 06:01 [place] % (Auto) 9.2 % 05/24/22 06:01 Eos % (Auto) 0.2 % 05/24/22 06:01 Baso % (Auto) 0.2 % 05/24/22 06:01 Neut # (Auto) 7.67 K/uL (1.40-6.50) H 05/24/22 06:01 Lymph # (Auto) 1.07 K/uL (1.2-3.4) L 05/24/22 06:01 [place] # (Auto) 0.89 K/uL (0.11-0.59) H 05/24/22 06:01 Eos # (Auto) 0.02 K/uL (0-0.50) 05/24/22 06:01 Baso # (Auto) 0.02 K/uL (0-0.2) 05/24/22 06:01 Immature Gran # (Auto) 0.02 K/uL (0.01-0.20) 05/24/22 06:01 Sodium 136 mmol/L (136-145) 05/24/22 06:01 Potassium 4.3 mmol/L (3.5-5.1) 05/24/22 06:01 Chloride 103 mmol/L (98-107) 05/24/22 06:01 Carbon Dioxide 26 mmol/L (21-32) 05/24/22 06:01 Anion Gap 7 (3-11) 05/24/22 06:01 BUN 24 mg/dl (6-23) H 05/24/22 06:01 Creatinine 0.95 mg/dl (0.6-1.4) 05/24/22 06:01 Est Cr Clr Drug Dosing 68.3 ml/min 05/24/22 06:01 Est GFR ( Amer) 90.4 ml/min 05/24/22 06:01 Est GFR (Non-Af Amer) 78.0 ml/min 05/24/22 06:01 BUN/Creatinine Ratio 25.3 (10-20) H 05/24/22 06:01 Glucose 112 mg/dl (70-99(Fasting)) H 05/24/22 06:01 Calcium 8.9 mg/dl (8.5-10.1) 05/24/22 06:01 SARS-CoV-2, RNA, NAAT NEGATIVE (NEGATIVE) 05/23/22 08:05 Impressions Shoulder X-Ray 05/23/22 16:18 XR shoulder LT min 2V routine HISTORY: 76 years-old Male Post shoulder surgery left shoulder surgery COMPARISON: Chest radiograph May 15, 2022 TECHNIQUE: 2 views of the left shoulder FINDINGS: Status post removal of the total joint arthroplasty. Resorptive changes of the p roximal humerus are redemonstrated. Cement material is noted within the expected location of the absent humeral head with a metallic J-shaped structure in place within the proximal humerus. Expected postoperative soft tissue swelling with deep tissue air. Satisfactory alignment. Mild cortical irregularity involves the lateral aspect of the proximal humerus. Healed chronic left mid clavicular fract ure. IMPRESSION: Postoperative changes as above. ACT 112: Negative or not required by law. The above report was generated using voice recognition software. It may contain grammatical, syntax or spelling errors. Electronically signed by: Abimael Harper M.D. 05/23/2022 5:24 PM
--- NOTE | 2022-05-24 11:28 | Hospitalist Progress Note ---
Date of Service May 24, 2022 Assessment & Plan (1) Infection and inflammatory reaction due to other internal joint prosthesis, initial encounter: Plan: Left shoulder infected reversed arthroplasty 05/23/2022: S/p left shoulder irrigation and debridement, removal of infected arthroplasty components, placement of antibiotic spacer. Arthroplasty originally done 3 years previously Pain control, activity management, DVT prophylaxis per primary team Preoperative hemoglobin 14.8, preoperative creatinine 0.87, no electrolyte derangements preop, COVID-negative preop - Surgical wound cultures pending-NGTD - 04/23/22 shoulder cx + for cutibacterium acnes/anaerobe ID consulted by Ortho for further antibiotic recommendations, will follow - will need picc line placed for anticipated 6w of IV abx - Based on aspirate culture data from Apr 2022, will discontinue Daptomycin and initiate Rocephin 2g IV daily (supportive by literature) - Discontinue Rifampin, no longer needed since there is no longer indwelling hardware (replaced by antibiotic spacer) (2) S/P cardiac pacemaker procedure: Plan: CAD, history of bradycardia/chronotropic incompetence S/p dual-chamber pacemaker 02/2021, functioning properly SIZE CHANGER Stress echo SIZE CHANGER negative for ischemia at 70% MPHR Preop echo: EF 60%, no LV wall motion abnormalities. Grade 1 diastolic dysfunction Preop EKG: QTc 440, rate 136, atrial paced rhythm similar to prior, no acute changes Average risk at preop evaluation without modifiable risk factors Low-dose aspirin has been increased to full dose for DVT PPx Continue metoprolol succinate 12.5 mg nightly Continue pravastatin every other day (3) Gastritis and duodenitis: Plan: - Continue protonix (4) Sleep apnea: Plan: - Utilize cpap at hs Plan Above plan of care d/w ortho NICOLETTE, Tom Olivera and attending, Dr. Sotelo. Admission and Anticipated Discharge Date Admission Date: May 23, 2022 Subjective Patient was seen on daily rounds this morning. He underwent explant of prosthetic hardware from left shoulder on 05/23 with placement of an antibiotic spacer. Joint aspiration from 04/23/22 grew cutibacterium. He denies fever/chills. Has some mild pain in shoulder but it is controlled with Tylenol. He has no h/o PE/DVT. No c/o chest pain or dyspnea. He is right hand dominant. Lives at home with his and plans to return home when able. Physical Exam Physical Exam: GENERAL: 76 yo Well-developed, well-nourished WM. NAD. LUNGS: Clear to auscultation bilaterally. CARDIOVASCULAR: Regular rate and rhythm. EXTREMITIES: Left shoulder dressing dry/intact, sling in place. Radial/ulnar pulses +2/4. Results & Data Results & Data ([facility]) Vital Signs (Past 12 Hours) Vital Signs Temp Pulse Resp BP Pulse Ox O2 Del Method 05/24/22 07:39 36.4 C L 85 16 139/76 98 Room Air 05/24/22 03:02 36.5 C 61 18 115/71 97 Room Air Laboratory Results 05/24/22 06:01 05/24/22 06:01 PG Care Time/CCT Total # of Minutes Spent Total Time Spent with Patient: Total time spent is greater than 50% in coordination of care (as documented) at patient's floor/unit and/or counseling patient: Coding Level of Care Code 85140 SUB INP/OBS CARE 2/35MIN Diagnoses Infection and inflammatory reaction due to other internal joint prosthesis, initial encounter T84.59XA S/P cardiac pacemaker procedure Z95.0 Gastritis and duodenitis K29.90 Sleep apnea G47.30
--- NOTE | 2022-05-24 11:43 | Infectious Disease Consult ---
Date of Consultation May 24, 2022 Assessment & Plan (1) Infection and inflammatory reaction due to other internal joint prosthesis, initial encounter: Plan Diagnosis of Cutibacterium acnes prosthetic joint infection typically made on basis of multiple cultures positive for cutibacterium; however, clinical course of patient is consistent with cutibacterium infection of prosthetic joint with indolent course, and minimal symptoms classic for infection. C. acnes typically highly susceptible to penicillin and cephalosporins, as well as daptomycin. Reassuring that pt did not previously get tx for acne as associated with increased abx resistance. Pt now has complete removal of prosthetic material, increasing likelihood of cure. OR cultures are in process- I have asked micro lab to hold cultures x 14 days to increase yield of C. acnes. These cxs are likely to be helpful given pt denies prior abx. Provided that cxs do not grow other organisms than C. acnes, recommend ceftriaxone 2 g IV q24 x2 weeks followed by cefadroxil 1 g PO Q12 x2 weeks (pt would prefer this to cephalexin 500mg PO q6 due to decreased frequency dosing) with weekly CBC with differential, CMP, ESR and CRP. After 4 weeks of abx, if there are no concerning signs or symptoms, patient subsequently can undergo implantation of new prosthesis with recommendation to obtain cultures at the time of reimplantation to determine need for additional antibiotic therapy.Recommend asking micro lab to hold these cultures x 2 weeks. If there are any concerning signs or symptoms, including persistently elevated inflammatory markers, synovial fluid culture to assess sterilization of the joint space 2 weeks after completing antibiotics should be considered before proceeding with new prosthesis implantation. Given total removal of hardware, role of rifampin benefit of rifampin is questionable and does not need to be continued. I discussed with pt and orthopedic surgeon that while ID outpatient followup not available at [facility], the ID physician on-call for [facility] can assist if questions/concerns develop after discharge. Please page with any questions. Martha Coronado M.D. [facility] Pager [phone] Consultation Information Consultation was provided via telemedicine using two-way real-time interactive telecommunication between the patient and the telemedicine provider. For the duration of the visit, the provider was performing the assessment from a different facility than the patient. This includesuse of bluetooth stethoscope forauscultationperformed by the telepresenter that the telemedicine provider can hear if described in the physical exam. [employer] contact information: Please call [facility] Call Center . (Phone Number For Physician Use Only) After establishing a telemedicine visit, patient was: Patient was verified with two unique identifiers, Patient/authorized rep acknowledged consent and understa nding and Gave permission to continue telehealth session Time Spent with Patient: Initial => 40 min History of Present Illness Attending Physician: Darius Guadarrama History of Present Illness ID consult requested for infected left shoulder in this 76-year-old male, past medical history of hyperlipidemia, CAD, cardiac arrhythmia, status post pacemaker, TIA, prostate cancer status post prostatectomy, status post left reverse total shoulder arthroplasty in 2019, who was admitted on 05/22/2022 for scheduled surgery. He had c/o persistent pain in his shoulder. He denied any issues with his surgical incision, such as redness, swelling or drainage. He denied any fevers, chills or sweats. However he felt his pain progressively worsened over the past year. In March, patient had x-ray of left shoulder which showed reverse total shoulder arthroplasty components in good position with some osteolysis around the proximal end of the humeral implant. Three- phase bone scan in March was negative with tracer deposition around the left shoulder arthroplasty for which clinical correlation was required. 03/20/2022 WBC was 6.29, ESR 63, CRP 2.47. On 04/23/2022, orthopedic surgery performed a left shoulder fluoroscopically guided aspiration. Alpha defense and lateral flow test was positive and intraoperative cultures grew cutibacterium acnes. Patient was therefore admitted for left shoulder irrigation and debridement, removal of infected reverse total shoulder arthroplasty components and placement of antibiotic cement spacer. Most recent WBC is from 05/15/2022 and was 5.39, 65.8% neutrophils. Creatinine was 0.87, UA was negative. Per discussion with orthopedic surgery, all hardware components were removed. Postop x-ray showed status post removal of total joint arthroplasty. 04/23/2022 left shoulder culture grew rare cutibacterium acnes (few WBCs, no organisms on Gram stain). 05/23 OR cultures are pending. Patient is currently on daptomycin 300 mg IV every 24 and rifampin 300 mg p.o. twice daily Patient has been afebrile. He confirms that he has no abx allergies. He also states that he has not been on any antibiotics prior to admission- either for shoulder or other indication. He denies having used antibiotics in past for acne. On ROS, he has a little cough, dry, tickling sensation, no SOB, abd pain or diarrhea. He reports his PCP is Dr Benjamín Pedraza and that he lives at home with his . WBC today ~9.7, no left shift, cr 0.95. Allergies Allergy/AdvReac Type Severity Reaction Status Date / Time sulindac Allergy Severe SHORT OF Verified 05/23/22 08:26 BREATH Home Medications Medication Instructions Recorded Confirmed Type cholecalciferol (vitamin D3) 25 1,000 unit PO QPM 06/15/18 05/23/22 History mcg (1,000 unit) capsule loratadine 10 mg tablet 10 mg PO QPM 06/15/18 05/23/22 History pravastatin 10 mg tablet 20 mg PO Q OTHER DAY 06/15/18 05/23/22 History nitroglycerin 0.4 mg sublingual 0.4 mg sublingual UD PRN Chest Pain 01/26/19 05/23/22 History tablet acetaminophen 500 mg tablet 1,000 mg PO Q6 PRN Pain 10/17/20 05/23/22 History (Tylenol Extra Strength) metoprolol succinate 25 mg 12.5 mg PO PM 05/02/22 05/23/22 History tablet,extended release 24 hr aspirin 81 mg tablet,delayed 81 mg PO Q OTHER DAY 05/13/22 05/23/22 History release pantoprazole 40 mg tablet,delayed 20 mg PO QAM 05/13/22 05/23/22 History release Miralax 30 ml PO DAILY 05/15/22 05/23/22 History Patient History Medical History Asthma no recent issues/no inhaler Bifascicular block Degenerative disc disease Esophagitis Gastritis and duodenitis Hiatal hernia History of kidney stones passed on own History of prostate cancer s/p prostatectomy HLD (hyperlipidemia) [place] (hard of hearing) Male erectile disorder Neuropathy pt denies Nocturia Obesity Pacemaker placed 01/2021 > Medtronic > "for extra heart beats" follows with Dr. Khushbu Thacker, and Dr. Dugan > last checked approx a week ago Poor urinary stream Sleep apnea cpap-compliant TIA (transient ischemic attack) 2020 Urinary frequency Surgical History History of colonoscopy History of esophagogastroduodenoscopy (EGD) History of open reduction and internal fixation (ORIF) procedure LLE History of prostate biopsy History of prostatectomy History of reverse total replacement of left shoulder joint 02/25/19 Grade 2 view, MAC 3, ETT 8 + PNB. History of tonsillectomy S/P appendectomy Family History Mother Diabetes Son Esophageal cancer Other Heart disease Social History Smoking Status: Former smoker Smoking End Date: 40 yrs; Second Hand Exposure: No; Do You Dip or Chew Tobacco: No; Tobacco Cessation Education Requested by Patient: No Hx Alcohol Use: Yes Alcohol type: beer Hx Substance Use: No Preferred Language: Lao Communication Ability: Effective Medical Grade Shoemaker Required: No Beliefs That Will Affect Care: None marital status: Current Living Situation: Spouse Other Information That Helps Us Care for You: No Feels Safe at Home: Yes Safety Concerns: Feels Safe At This Time Assistive Devices: CPAP Physical Exam Physical Exam: PE: Gen: Awake, alert, NAD HEENT: anicteric Resp: no resp distress on RA Abd: Soft, NT/ND Extr: LUE in sling, shoulder dressing not removed. no LE edema Skin: RUE peripheral IVs ok Results & Data ([facility]) Vital Signs (Past 12 Hours) Vital Signs Temp Pulse Resp BP Pulse Ox O2 Del Method 05/24/22 07:39 36.4 C L 85 16 139/76 98 Room Air 05/24/22 03:02 36.5 C 61 18 115/71 97 Room Air Laboratory Results 05/23/22 14:57 Gram Stain - Final Shoulder,Left Aerobic and Anaerobic Culture - Preliminary No growth to date. 05/23/22 14:57 Gram Stain - Final Shoulder,Left Aerobic and Anaerobic Culture - Preliminary No growth to date. 05/23/22 14:57 Gram Stain - Final Shoulder,Left Aerobic and Anaerobic Culture - Preliminary No growth to date. 05/23/22 13:47 Gram Stain - Final Shoulder,Left Aerobic and Anaerobic Culture - Preliminary No growth to date. 05/23/22 23:22 Aerobic Blood Culture - Pending Blood Anaerobic Blood Culture - Pending 05/23/22 23:22 Aerobic Blood Culture - Pending Blood Anaerobic Blood Culture - Pending 05/24/22 05/24/22 06:01 06:01 WBC 9.69 RBC 4.38 L Hgb 12.7 L Hct 37.7 L MCV 86.1 MCH 29.0 MCHC 33.7 RDW Std Deviation 50.4 H RDW Coeff of Swetha 15.9 H Plt Count 221 MPV 10.1 Immature Gran % (Auto) 0.2 Neut % (Auto) 79.2 Lymph % (Auto) 11.0 [place] % (Auto) 9.2 Eos % (Auto) 0.2 Baso % (Auto) 0.2 Neut # (Auto) 7.67 H Lymph # (Auto) 1.07 L [place] # (Auto) 0.89 H Eos # (Auto) 0.02 Baso # (Auto) 0.02 Immature Gran # (Auto) 0.02 Sodium 136 Potassium 4.3 Chloride 103 Carbon Dioxide 26 Anion Gap 7 BUN 24 H Creatinine 0.95 Est Cr Clr Drug Dosing 68.3 Est GFR ( Amer) 90.4 Est GFR (Non-Af Amer) 78.0 BUN/Creatinine Ratio 25.3 H Glucose 112 H Calcium 8.9 Diagnostic Findings Shoulder X-Ray 05/23/22 16:18 XR shoulder LT min 2V routine HISTORY: 76 years-old Male Post shoulder surgery left shoulder surgery COMPARISON: Chest radiograph May 15, 2022 TECHNIQUE: 2 views of the left shoulder FINDINGS: Status post removal of the total joint arthroplasty. Resorptive changes of the proximal humerus are redemonstrated. Cement material is noted within the expected location of the absent humeral head with a metallic J-shaped structure in place within the proximal humerus. Expected postoperative soft tissue swelling with deep tissue air. Satisfactory alignment. Mild cortical irregularity involves the lateral aspect of the proximal humerus. Healed chronic left mid clavicular fracture. IMPRESSION: Postoperative changes as above. ACT 112: Negative or not required by law. The above report was generated using voice recognition software. It may contain grammatical, syntax or spelling errors. Electronically signed by: Abimael Harper M.D. 05/23/2022 5:24 PM Medications Administered Current Medications Acetaminophen (Acetaminophen 500 Mg Tab) 500 mg PO Q6 [facility] Stop: 06/22/22 17:59 Last Admin: 05/24/22 05:53 Dose: 500 mg Aspirin (Aspirin 325 Mg Ectab) 325 mg PO QAM [facility] Stop: 06/23/22 08:59 Last Admin: 05/24/22 08:56 Dose: 325 mg Bisacodyl (Bisacodyl 10 Mg Supp) 10 mg ME DAILY PRN PRN Reason: Constipation Stop: 06/22/22 17:33 Docusate Sodium (Docusate Sodium 100 Mg Cap) 100 mg PO BID [facility] Stop: 06/22/22 20:59 Last Admin: 05/24/22 08:56 Dose: 100 mg Ceftriaxone Sodium 2,000 mg/ (Dextrose) 70 mls @ 100 mls/hr IV Q24H [facility]; Protocol Stop: 07/05/22 08:29 Last Infusion: 05/24/22 09:57 Dose: Infused Ibuprofen (Ibuprofen 600 Mg Tab) 600 mg PO Q6H [facility] Stop: 06/22/22 20:59 Last Admin: 05/24/22 08:55 Dose: 600 mg Loratadine (Loratadine 10 Mg Tab) 10 mg PO QPM [facility] Stop: 06/22/22 20:59 Last Admin: 05/23/22 20:05 Dose: 10 mg Magnesium Hydroxide (Magnesium Hydroxide Susp 30 Ml Udc) 30 ml PO Q6H PRN PRN Reason: Constipation Stop: 06/22/22 17:33 Metoclopramide HCl (Metoclopramide Hcl Inj 5 Mg/Ml 2 Ml Vial) 10 mg IV Q6H PRN PRN Reason: Nausea And Vomiting Stop: 06/22/22 17:33 Metoprolol Succinate (Metoprolol Succ 25mg Ext Rel Tab) 12.5 mg PO PM [facility] Stop: 06/22/22 20:59 Last Admin: 05/23/22 20:54 Dose: 12.5 mg Multivitamins (Multivitamin Tab) 1 tab PO QAM [facility] Stop: 06/23/22 08:59 Last Admin: 05/24/22 08:56 Dose: 1 tab Naloxone HCl (Naloxone Hcl 0.4 Mg/1 Ml Vial/Carp) 0.1 mg IV Q5M PRN PRN Reason: Oversedation/Resp Depression Stop: 06/22/22 17:33 Nitroglycerin (Nitroglycerin Sl 0.4 Mg/Tab Tab) 0.4 mg SL UD PRN PRN Reason: Chest Pain Stop: 06/22/22 17:33 Ondansetron HCl (Ondansetron Inj 2 Mg/Ml 2 Ml Vial) 4 mg IV Q6H PRN PRN Reason: Nausea And Vomiting Stop: 06/22/22 17:33 Oxycodone HCl (Oxycodone Hcl Ir 5 Mg Tab (Immediate Release)) 5 - 10 mg PO Q4H PRN PRN Reason: Pain or Pre PT Stop: 06/06/22 17:33 Pantoprazole Sodium (Pantoprazole 40 Mg Tab) 40 mg PO QAM [facility] Stop: 06/23/22 08:59 Last Admin: 05/24/22 08:56 Dose: 40 mg Polyethylene Glycol (Polyethylene (Miralax) 17 Gm Pack) 17 gm PO DAILY [facility] Stop: 06/23/22 08:59 Last Admin: 05/24/22 08:56 Dose: 17 gm Pravastatin Sodium (Pravastatin Sod 20 Mg Tab) 20 mg PO Q48H [facility] Stop: 06/23/22 20:59 Sennosides (Senna 8.6 Mg Tab) 17.2 mg PO HS [facility] Stop: 06/22/22 20:59 Last Admin: 05/23/22 20:06 Dose: 17.2 mg Vitamin D (Cholecalciferol 1,000 Units 25 Mcg Tab) 1,000 units PO QPM [facility] Stop: 06/22/22 20:59 Last Admin: 05/23/22 20:04 Dose: 1,000 units
[2022-05-24] MEDS: oxyCODONE HCL IR 5 MG TAB (IMMEDIATE RELEASE) PO PRN ×2 (12:34→22:50)
--- NOTE | 2022-05-24 14:02 | Communication Note ---
Date of Service: May 24, 2022 Patient initially switch back to Rocephin secondary to preoperative cultures and nothing growing on current cultures. Infectious disease has made recom mendations. I have discussed this with Dr. Guadarrama. He would prefer that daptomycin be continued through the weekend. Plans will be to review the cultures and if they continue to remain no growth to date by Friday, patient will be discharged home IV Rocephin. Dr. Guadarrama to determine final length the time of IV antibiotics and orals. Daptomycin has already been restarted by hospitalist service.
[2022-05-24] MEDS: DAPTOmycin 300 MG in SYRINGE 0 ML IV SCH (15:09)
[2022-05-24] MEDS: CHOLECALCIFEROL 1,000 UNITS 25 MCG TAB PO SCH (20:02)
[2022-05-24] MEDS: LORATADINE 10 MG TAB PO SCH (20:03)
[2022-05-24] MEDS: METOPROLOL SUCC 25MG EXT REL TAB PO SCH (20:04)
[2022-05-24] MEDS: SENNA 8.6 MG TAB PO SCH (20:05)
[2022-05-24] MEDS ORDERED: PRAVASTATIN SOD 20 MG TAB PO SCH (21:00)
[2022-05-25] MEDS: IBUPROFEN 600 MG TAB PO SCH ×4 (03:59→21:10)
[2022-05-25] MEDS: ACETAMINOPHEN 500 MG TAB PO SCH ×3 (06:35→17:30)
[2022-05-25 06:53] LABS: Est GFR (African American) 91.6 ml/min
[2022-05-25] MEDS: POLYETHYLENE (MIRALAX) 17 GM PACK PO SCH (08:30)
[2022-05-25] MEDS: ASPIRIN 325 MG ECTAB PO SCH (08:31)
[2022-05-25] MEDS: MULTIVITAMIN TAB PO SCH (08:31)
[2022-05-25] MEDS: cefTRIAXone SODIUM 2,000 MG in DEXTROSE 5% 50 ML IV SCH (08:31)
[2022-05-25] MEDS: DOCUSATE SODIUM 100 MG CAP PO SCH ×2 (08:31→21:09)
[2022-05-25] MEDS: PANTOprazole 40 MG TAB PO SCH (08:32)
--- NOTE | 2022-05-25 10:31 | Orthopedic Progress Note ---
Date of Service May 25, 2022 Assessment & Plan (1) Infection and inflammatory reaction due to other internal joint prosthesis, initial encounter: Plan: 76-year-old male status post left shoulder explant and placement of antibiotic spacer Pain control Abx Medical management Cx growing C acnes Plan for likely d/c on friday pending final ID recs Admission and Anticipated Discharge Date Admission Date: May 23, 2022 Subjective Pt S+E, NAEO, pain controlled. Physical Exam Physical Exam: NAD, AAOx3 Musculoskeletal: LUE - in sling - dressing c/d/i - silt a/m/r/u - fires d/b/t/wf/we/pedro + rad pulse Results & Data ([facility]) Vital Signs (Past 12 Hours) Vital Signs Temp Pulse Resp BP Pulse Ox O2 Del Method 05/25/22 07:16 36.3 C L 63 18 122/66 98 Room Air
--- NOTE | 2022-05-25 11:53 | Hospitalist Progress Note ---
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 Arthroplasty originally done 3 years previously Pain control, activity management, DVT prophylaxis per primary team Preoperative hemoglobin 14.8, preoperative creatinine 0.87, no electrolyte derangements preop, COVID-negative preop - Surgical wound cultures pending-NGTD - 04/23/22 shoulder cx + for cutibacterium acnes/anaerobe ID consulted by Ortho for further antibiotic recommendations, advised 2w IV followed by 2w oral abx - Pending duration, pt will need picc line v. midline placed for anticipated IV abx - Based on aspirate culture data from Apr 2022, would discontinue Daptomycin and continue Rocephin 2g IV daily (supported by literature) x 4-6 weeks - Discontinue Rifampin, no longer needed since there is no longer indwelling hardware (replaced by antibiotic spacer) - D/w Dr. 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 Grade 1 diastolic dysfunction Preop EKG: QTc 440, rate 136, atrial paced rhythm similar to prior, no acute changes Average risk at preop evaluation without modifiable risk factors Low-dose aspirin has been increased to full dose for DVT PPx Continue metoprolol succinate 12.5 mg nightly Continue pravastatin every other day (3) Gastritis and duodenitis: Plan: - Continue protonix (4) Sleep apnea: Plan: - Utilize cpap at hs Plan No further recommendations for this patient other than as outlined above. Will sign off. Please feel free to reach out if any acute needs should arise while patient remains in house. Plan has been d/w Dr. Sotelo. Admission and Anticipated Discharge Date Admission Date: May 23, 2022 Subjective Patient seen on rounds, has no complaints presently. Shoulder pain is controlled. No cp or dyspnea. Denies fever or chills. Physical Exam Physical Exam: GENERAL: 76 yo Well-developed, well-nourished WM. NAD. LUNGS: Clear to auscultation bilaterally. CARDIOVASCULAR: Regular rate and rhythm. EXTREMITIES: Left shoulder dressing dry/intact, sling in place. Radial/ulnar pulses +2/4. Results & Data Results & Data ([facility]) Vital Signs (Past 12 Hours) Vital Signs Temp Pulse Resp BP Pulse Ox O2 Del Method 05/25/22 07:16 36.3 C L 63 18 122/66 98 Room Air PG Care Time/CCT Total # of Minutes Spent Total Time Spent with Patient: Total time spent is greater than 50% in coordination of care (as documented) at patient's floor/unit and/or counseling patient: Coding Level of Care Code 60934 SUB INP/OBS CARE 2/35MIN Diagnoses Infection and inflammatory reaction due to other internal joint prosthesis, initial encounter T84.59XA S/P cardiac pacemaker procedure Z95.0 Gastritis and duodenitis K29.90 Sleep apnea G47.30
[2022-05-25] MEDS: DAPTOmycin 300 MG in SYRINGE 0 ML IV SCH (15:51)
[2022-05-25] MEDS: METOPROLOL SUCC 25MG EXT REL TAB PO SCH (21:09)
[2022-05-25] MEDS: SENNA 8.6 MG TAB PO SCH (21:10)
[2022-05-25] MEDS: LORATADINE 10 MG TAB PO SCH (21:11)
[2022-05-25] MEDS: CHOLECALCIFEROL 1,000 UNITS 25 MCG TAB PO SCH (21:11)
[2022-05-26] MEDS: ACETAMINOPHEN 500 MG TAB PO SCH ×4 (00:04→18:23)
[2022-05-26] MEDS: IBUPROFEN 600 MG TAB PO SCH ×4 (03:45→20:58)
[2022-05-26 06:19] LABS: Creatinine Clr Calc Pharmacy 75.4 ml/min; Est GFR (African American) 98.3 ml/min; Est GFR (Non-African American) 84.8 ml/min
--- NOTE | 2022-05-26 06:28 | Orthopedic Progress Note ---
Date of Service May 26, 2022 Assessment & Plan (1) Infection and inflammatory reaction due to other internal joint prosthesis, initial encounter: Plan: 76-year-old male POD #3 s/p left shoulder explant and placement of antibiotic spacer Pain control Abx Medical management Cx growing C acnes Plan for likely d/c on friday pending final ID recs as per ID: OR cultures are in process- I have asked micro lab to hold cultures x 14 days to increase yield of C. acnes. These cxs are likely to be helpful given pt denies prior abx. Provided that cxs do not grow other organisms than C. acnes, recommend ceftriaxone 2 g IV q24 x2 weeks followed by cefadroxil 1 g PO Q12 x2 weeks (pt would prefer this to cephalexin 500mg PO q6 due to decreased frequency dosing) with weekly CBC with differential, CMP, ESR and CRP. Admission and Anticipated Discharge Date Admission Date: May 23, 2022 Subjective POD #3 s/p Left shoulder I&D Removal of infected reverse total shoulder arthroplasty components Placement of antibiotic cement spacer Review of Systems Constitutional: no fever and no chills Respiratory: no cough and no dyspnea Cardiovascular: no chest pain, no dyspnea and no orthopnea Gastrointestinal: no abdominal pain, no nausea and no vomiting Physical Exam Physical Exam: Vital Signs Temp 36.4 C L 05/25/22 20:45 Pulse 60 05/25/22 20:45 Resp 16 05/25/22 20:45 BP 110/66 05/25/22 20:45 Pulse Ox 95 05/25/22 20:45 O2 Del Method Room Air 05/25/22 20:45 O2 Flow Rate 11 05/23/22 16:15 Intake & Output 05/25/22 05/25/22 05/26/22 06:59 18:59 06:59 Intake Total 400 / 920 70 / 70 Balance 400 / 920 70 / 70 Intake: IV 70 / 70 cefTRIAXone SO DIUM 2,000 mg In 70 / 70 Dextrose 5% 50 ml @ 100 mls/hr IV Q24H [facility] Rx #:[id number] Oral 400 / 850 Other: # Unmeasured Voi ds 1 Musculoskeletal: Left upper extremity: Sling is in place. Dressings are clean, dry, and intact. He is moving his fingers well. He has good wrist range of motion. Sensation is mostly intact in his fingers and cap refills less than 2 seconds Results & Data ([facility]) Vital Signs (Past 12 Hours) Vital Signs Temp Pulse Resp BP Pulse Ox O2 Del Method 05/25/22 20:45 36.4 C L 60 16 110/66 95 Room Air
[2022-05-26] MEDS: PANTOprazole 40 MG TAB PO SCH (08:43)
[2022-05-26] MEDS: MULTIVITAMIN TAB PO SCH (08:43)
[2022-05-26] MEDS: ASPIRIN 325 MG ECTAB PO SCH (08:43)
[2022-05-26] MEDS: DOCUSATE SODIUM 100 MG CAP PO SCH ×2 (08:44→20:58)
[2022-05-26] MEDS: cefTRIAXone SODIUM 2,000 MG in DEXTROSE 5% 50 ML IV SCH (08:45)
[2022-05-26] MEDS: POLYETHYLENE (MIRALAX) 17 GM PACK PO SCH (09:08)
[2022-05-26] MEDS: DAPTOmycin 300 MG in SYRINGE 0 ML IV SCH (16:07)
[2022-05-26] MEDS: LORATADINE 10 MG TAB PO SCH (20:57)
[2022-05-26] MEDS: CHOLECALCIFEROL 1,000 UNITS 25 MCG TAB PO SCH (20:57)
[2022-05-26] MEDS: METOPROLOL SUCC 25MG EXT REL TAB PO SCH (20:58)
[2022-05-26] MEDS: SENNA 8.6 MG TAB PO SCH (20:58)
[2022-05-27] MEDS: ACETAMINOPHEN 500 MG TAB PO SCH ×4 (00:05→17:00)
[2022-05-27] MEDS: IBUPROFEN 600 MG TAB PO SCH ×4 (03:12→20:55)
[2022-05-27 07:08] LABS: Creatinine Clr Calc Pharmacy 69.7 ml/min; Est GFR (African American) 92.7 ml/min
--- NOTE | 2022-05-27 07:23 | Orthopedic Progress Note ---
Date of Service May 27, 2022 Assessment & Plan (1) Infection and inflammatory reaction due to other internal joint prosthesis, initial encounter: Plan: 76-year-old male POD #4 s/p left shoulder explant and placement of antibiotic spacer Pain control Abx Medical management Preop cultures grew P acnes. 3 of 4 postop cultures are with no growth. One culture post op Gram stain was with many gram-positive cocci, pinpoint growth as of yesterday. Blood cultures negative. We will follow. ID recs were for 2 weeks of ceftriaxone and then 2 weeks of cefadroxil as long as cultures remain negative. Per Dr. Guadarrama patient is currently on ceftriaxone as well as daptomycin. If postop cultures remain with no growth and no other organisms other than P acnes will discontinue Dapto and discharged on ceftriaxone with total duration decided by Dr. Guadarrama. Patient will likely need PICC line. We will follow cultures. Admission and Anticipated Discharge Date Admission Date: May 23, 2022 Subjective POD #4 s/p Left shoulder I&D Removal of infected reverse total shoulder arthroplasty components Placement of antibiotic cement spacer. Pain controlled. No current complaints. Review of Systems Review of Systems: All systems reviewed & are unremarkable except as noted in Subjective Physical Exam Physical Exam: Left shoulder: Silverlon is clean, dry, intact. Sling in place. Fingers are mobile with good resource paraprofessional strength distally neurovascular status and sensation grossly intact.. Constitutional: WD/WN, vitals as above Results & Data ([facility]) Vital Signs (Past 12 Hours) Vital Signs Temp Pulse Resp BP Pulse Ox O2 Del Method 05/26/22 20:57 36.3 C L 60 14 129/65 97 Room Air
[2022-05-27] MEDS: cefTRIAXone SODIUM 2,000 MG in DEXTROSE 5% 50 ML IV SCH (07:39)
[2022-05-27] MEDS: ASPIRIN 325 MG ECTAB PO SCH (08:37)
[2022-05-27] MEDS: DOCUSATE SODIUM 100 MG CAP PO SCH ×2 (08:37→20:55)
[2022-05-27] MEDS: MULTIVITAMIN TAB PO SCH (08:38)
[2022-05-27] MEDS: PANTOprazole 40 MG TAB PO SCH (08:38)
[2022-05-27] MEDS: POLYETHYLENE (MIRALAX) 17 GM PACK PO SCH (09:08)
--- NOTE | 2022-05-27 10:22 | Infectious Disease Progress Nt ---
Date of Service May 27, 2022 Assessment & Plan (1) Infection and inflammatory reaction due to other internal joint prosthesis, initial encounter: Plan Diagnosis of Cutibacterium acnes prosthetic joint infection typically made on basis of multiple cultures positive for cutibacterium; however, clinical course of patient is consistent with cutibacterium infection of prosthetic joint with indolent course, and minimal symptoms classic for infection. C. acnes typically highly susceptible to penicillin and cephalosporins, as well as daptomycin. Reassuring that pt did not previously get tx for acne as associated with increased abx resistance. Pt now has complete removal of prosthetic material, increasing likelihood of cure. I have asked micro lab to hold cultures x 14 days to increase yield of C. acnes. These cxs are likely to be helpful given pt denies prior abx.One cx with gram positive cocci on gram stain and pinpoint growth in culture- requested that micro lab review gram stain again and they report morphology is pleiomorphic gram positive rods and c/w C. acnes and report will be revised. Recommend stopping daptomycin. Recommend ceftriaxone 2 g IV q24 x2 weeks followed by cefadroxil 1 g PO Q12 x2 weeks (pt would prefer this to cephalexin 500mg PO q6 due to decreased frequency dosing) with weekly CBC with differential, CMP, ESR and CRP. After 4 weeks of abx, if there are no concerning signs or symptoms, patient subsequently can undergo implantation of new prosthesis with recommendation to obtain cultures at the time of reimplantation to determine need for additional antibiotic therapy.Recommend asking micro lab to hold these cultures x 2 weeks. If there are any concerning signs or symptoms, including persistently elevated inflammatory markers, synovial fluid culture to assess sterilization of the joint space 2 weeks after completing antibiotics should be considered before proceeding with new prosthesis implantation. Given total removal of hardware, role of rifampin benefit of rifampin is questionable and does not need to be continued. I discussed with pt and orthopedic surgeon that while ID outpatient followup not available at [facility], the ID physician on-call for [facility] can assist if questions/concerns develop after discharge. Please page with any questions. Martha Coronado M.D. [facility] Pager [phone] Admission and Anticipated Discharge Date Admission Date: May 23, 2022 Subjective Subsequent visit was provided via telemedicine using two-way real-time interactive telecommunication between the patient and the telemedicine provider. For the duration of the visit, the provider was performing the assessment from a different facility than the patient. This includesuse of bluetooth stethoscope forauscultationperformed by the telepresenter that the telemedicine provider can hear if described in the physical exam. Music Pastor contact information: Please call [facility] Call Center . (Phone Number For Physician Use Only) After establishing a telemedicine visit, patient was: Patient was verified with two unique identifiers, Patient/authorized rep acknowledged consent and understanding and Gave permission to continue telehealth session Time Spent with Patient: Subsequent => 25 min Pt denies fever, abd pain or diarrhea. Reports on stool softeners. Eager to go home. Plan reviewed with pt Physical Exam Physical Exam: PE: Gen: Awake, alert, NAD HEENT: anicteric Resp: no resp distress on RA Abd: Soft, NT/ND Extr: L shoulder adherent dressing c/d/i. L shoulder slightly swollen, without erythema or warmth. Compression stockings b/l Skin: R peripheral IV ok Results & Data ([facility]) Vital Signs (Past 12 Hours) Vital Signs Temp Pulse Resp BP Pulse Ox O2 Del Method 05/27/22 07:45 36.4 C L 60 18 134/82 95 Room Air Laboratory Results 05/23/22 14:57 Gram Stain - Final Shoulder,Left Aerobic and Anaerobic Culture - Preliminary No growth to date. 05/23/22 14:57 Gram Stain - Final Shoulder,Left Aerobic and Anaerobic Culture - Preliminary No growth to date. 05/23/22 13:47 Gram Stain - Final Shoulder,Left Aerobic and Anaerobic Culture - Preliminary No growth to date. 05/27/22 05:40 Creatinine 0.93 Est Cr Clr Drug Dosing 69.7 Est GFR ( Amer) 92.7 Est GFR (Non-Af Amer) 80.0 Medications Administered Current Medications Acetaminophen (Acetaminophen 500 Mg Tab) 500 mg PO Q6 [facility] Stop: 06/22/22 17:59 Last Admin: 05/27/22 05:42 Dose: 500 mg Aspirin (Aspirin 325 Mg Ectab) 325 mg PO QAM [facility] Stop: 06/23/22 08:59 Last Admin: 05/27/22 08:37 Dose: 325 mg Bisacodyl (Bisacodyl 10 Mg Supp) 10 mg NH DAILY PRN PRN Reason: Constipation Stop: 06/22/22 17:33 Docusate Sodium (Docusate Sodium 100 Mg Cap) 100 mg PO BID [facility] Stop: 06/22/22 20:59 Last Admin: 05/27/22 08:37 Dose: 100 mg Ceftriaxone Sodium 2,000 mg/ (Dextrose) 70 mls @ 100 mls/hr IV Q24H [facility]; Protocol Stop: 07/05/22 08:29 Last Infusion: 05/27/22 08:34 Dose: Infused Daptomycin 300 mg/ Syringe 6 mls @ 3 mls/min IV Q24H [facility]; Protocol Stop: 07/05/22 14:59 Last Admin: 05/26/22 16:07 Dose: 3 mls/min Ibuprofen (Ibuprofen 600 Mg Tab) 600 mg PO Q6H [facility] Stop: 06/22/22 20:59 Last Admin: 05/27/22 08:37 Dose: 600 mg Loratadine (Loratadine 10 Mg Tab) 10 mg PO QPM [facility] Stop: 06/22/22 20:59 Last Admin: 05/26/22 20:57 Dose: 10 mg Magnesium Hydroxide (Magnesium Hydroxide Susp 30 Ml Udc) 30 ml PO Q6H PRN PRN Reason: Constipation Stop: 06/22/22 17:33 Metoclopramide HCl (Metoclopramide Hcl Inj 5 Mg/Ml 2 Ml Vial) 10 mg IV Q6H PRN PRN Reason: Nausea And Vomiting Stop: 06/22/22 17:33 Metoprolol Succinate (Metoprolol Succ 25mg Ext Rel Tab) 12.5 mg PO PM [facility] Stop: 06/22/22 20:59 Last Admin: 05/26/22 20:58 Dose: 12.5 mg Multivitamins (Multivitamin Tab) 1 tab PO QAM [facility] Stop: 06/23/22 08:59 Last Admin: 05/27/22 08:38 Dose: 1 tab Naloxone HCl (Naloxone Hcl 0.4 Mg/1 Ml Vial/Carp) 0.1 mg IV Q5M PRN PRN Reason: Oversedation/Resp Depression Stop: 06/22/22 17:33 Nitroglycerin (Nitroglycerin Sl 0.4 Mg/Tab Tab) 0.4 mg SL UD PRN PRN Reason: Chest Pain Stop: 06/22/22 17:33 Ondansetron HCl (Ondansetron Inj 2 Mg/Ml 2 Ml Vial) 4 mg IV Q6H PRN PRN Reason: Nausea And Vomiting Stop: 06/22/22 17:33 Oxycodone HCl (Oxycodone Hcl Ir 5 Mg Tab (Immediate Release)) 5 - 10 mg PO Q4H PRN PRN Reason: Pain or Pre PT Stop: 06/06/22 17:33 Last Admin: 05/24/22 22:50 Dose: 10 mg Pantoprazole Sodium (Pantoprazole 40 Mg Tab) 40 mg PO QAM [facility] Stop: 06/23/22 08:59 Last Admin: 05/27/22 08:38 Dose: 40 mg Polyethylene Glycol (Polyethylene (Miralax) 17 Gm Pack) 17 gm PO DAILY [facility] Stop: 06/23/22 08:59 Last Admin: 05/27/22 09:08 Dose: 17 gm Pravastatin Sodium (Pravastatin Sod 20 Mg Tab) 20 mg PO Q48H [facility] Stop: 06/23/22 20:59 Sennosides (Senna 8.6 Mg Tab) 17.2 mg PO HS [facility] Stop: 06/22/22 20:59 Last Admin: 05/26/22 20:58 Dose: 17.2 mg Vitamin D (Cholecalciferol 1,000 Units 25 Mcg Tab) 1,000 units PO QPM [facility] Stop: 06/22/22 20:59 Last Admin: 05/26/22 20:57 Dose: 1,000 units
[2022-05-27] MEDS: LORATADINE 10 MG TAB PO SCH (20:54)
[2022-05-27] MEDS: CHOLECALCIFEROL 1,000 UNITS 25 MCG TAB PO SCH (20:55)
[2022-05-27] MEDS: METOPROLOL SUCC 25MG EXT REL TAB PO SCH (20:55)
[2022-05-27] MEDS: SENNA 8.6 MG TAB PO SCH (20:56)
[2022-05-28] MEDS: ACETAMINOPHEN 500 MG TAB PO SCH ×3 (00:10→11:56)
[2022-05-28] MEDS: IBUPROFEN 600 MG TAB PO SCH ×2 (03:47→08:13)
[2022-05-28] MEDS: oxyCODONE HCL IR 5 MG TAB (IMMEDIATE RELEASE) PO PRN ×2 (03:47→11:55)
[2022-05-28] MEDS: DOCUSATE SODIUM 100 MG CAP PO SCH (08:11)
[2022-05-28] MEDS: ASPIRIN 325 MG ECTAB PO SCH (08:12)
[2022-05-28] MEDS: PANTOprazole 40 MG TAB PO SCH (08:13)
[2022-05-28] MEDS: MULTIVITAMIN TAB PO SCH (08:13)
[2022-05-28] MEDS: POLYETHYLENE (MIRALAX) 17 GM PACK PO SCH (08:14)
[2022-05-28] MEDS: cefTRIAXone SODIUM 2,000 MG in DEXTROSE 5% 50 ML IV SCH (08:41)
--- NOTE | 2022-05-28 10:49 | Orthopedic Progress Note ---
Date of Service May 28, 2022 Assessment & Plan (1) Infection and inflammatory reaction due to other internal joint prosthesis, initial encounter: Plan: 76-year-old male POD #5 s/p left shoulder explant and placement of antibiotic spacer recommendation is Ceftriaxone 2gm IV q24 hours x 2 weeks followed by Cefadroxil 1gm PO q 12 hours x 2 weeks patient will need weekly labs including CBC with diff, CMP, ESR and CRP sling, ice pain control f/u in office in [address] Guadarrama team plan for d/c today after he receives his dose of Abx here in the hospital Admission and Anticipated Discharge Date Admission Date: May 23, 2022 Subjective POD #5 s/p Left shoulder I&D Removal of infected reverse total shoulder arthrop lasty components Placement of antibiotic cement spacer Review of Systems Constitutional: no fever and no chills Respiratory: no cough and no dyspnea Cardiovascular: no chest pain, no dyspnea and no orthopnea Gastrointestinal: no abdominal pain, no nausea and no vomiting Physical Exam Physical Exam: Vital Signs Temp 36.5 C 05/28/22 07:19 Pulse 59 L 05/28/22 07:19 Resp 16 05/28/22 07:19 BP 118/65 05/28/22 07:19 Pulse Ox 98 05/28/22 07:19 O2 Del Method Room Air 05/28/22 07:19 O2 Flow Rate 11 05/23/22 16:15 Intake & Output 05/27/22 05/28/22 05/28/22 18:59 06:59 18:59 Intake Total 550 / 550 70 / 70 Balance 550 / 550 70 / 70 Intake: IV 70 / 70 70 / 70 cefTRIAXone SO DIUM 2,000 mg In 70 / 70 70 / 70 Dextrose 5% 50 ml @ 100 mls/hr IV Q24H [facility] Rx #:[id number] Oral 480 / 480 Other: # Unmeasured Voi ds 1 1 Musculoskeletal: Left upper extremity: Sling is in place.Silverlon dressing is clean, dry, and intact. He is moving his fingers well. He has good wrist range of motion. Sensation is mostly intact in his fingers and cap refills less than 2 seconds Results & Data ([facility]) Vital Signs (Past 12 Hours) Vital Signs Temp Pulse Resp BP Pulse Ox O2 Del Method 05/28/22 07:19 36.5 C 59 L 16 118/65 98 Room Air
--- NOTE | 2022-05-30 19:15 | Discharge Summary ---
Date of Service May 30, 2022 Admission HPI Per Admitting Provider 04/23/22 - Left shoulder fluoroscopically guided aspiration 02/25/19 - Left reverse total shoulder arthroplasty with biceps tenodesis Mr. Villagomez returns. Again, he is a 76-year old male who is over 3 years out from surgery and continues to have problems with his left shoulder. He notes pain in his shoulder on a relatively constant basis, but with radiation up into his neck and down his arm towards his elbow, but not really into his hand. He does not really note reproduction of the symptoms with turning his neck 1 way or the other. He still maintains fairly good motion of the shoulder and good strength with minimal discomfort with activities. He again denies ever having any problems with his incision such as redness, swelling, or drainage. He denies any fevers, chills, or night sweats. He feels like this pain has progressively worsened over the past year. Principal Diagnosis Left infected total shoulder arthroplasty Discharge Data Allergies Allergy/AdvReac Type Severity Reaction Status Date / Time sulindac Allergy Severe SHORT OF Verified 05/23/22 08:26 BREATH Consultations 05/23/22 17:34 Consult Hospitalist Routine 05/24/22 08:55 Consult Infectious Diseases Routine Procedures Performed Operation Date: 05/23/22 10:40 Actual Procedures p Left Shoulder Removal of Infected Total Shoulder Arthroplasty with Placement of Antibiotic Cement Spacer(Left) - Darius Arnold M.D. Ordered Studies 05/23/22 05:00 US - OR guided needle placemen Routine 05/27/22 18:10 US - OR guided needle placemen Routine Hospital Course (1) Infection and inflammatory reaction due to other internal joint prosthesis, initial encounter: Mr. Villagomez underwent a left shoulder irrigation and debridement, removal of infected total shoulder arthroplasty components, and implantation of an ant ibiotic cement spacer on 05/23/22, and was admitted under the orthopedic surgery service postoperatively. Patient tolerated the procedure well and was transferred up to the orthopedic surgery floor in stable condition. DVT prophylaxis consisting of aspirin 325 mg daily was started the morning after surgery. Preoperative aspirate had grown P. acnes. Postoperatively, initiated initial broad-spectrum antibacterial coverage with daptomycin and rifampin pending intraoperative cultures. He was kept in the hospital until cultures were resulted and final antibiotic plan was in place. Infectious disease was consulted. Initially, 3 out of the 4 cultures obtained in the operating room showed no organisms on Gram stain. The Gram stain on 1 specimen was initially reported as gram-positive cocci, but this was later noted to be an error and corrected report showed gram-positive bacilli on 05/27. All 4 intraoperative cultures eventually grew P. acnes. Infectious disease then recommended discon tinuing the daptomycin and switch to ceftriaxone 2 g IV every 24 hours for 2 weeks, followed by oral cefadroxil 1 g every 12 hours for 2 weeks. Home health was arranged for infusion of the antibiotics. After all of this was arranged by postoperative day 5 (05/28), pain was well controlled with oral medications only. Patient was ambulating without assistance, tolerating a regular diet, and was therefore determined to be safe and ready for discharge to home. Total Time Total Time Spent Total Time Spent (In Minutes): 30 Discharge Plan Discharge Items Patient Disposition: Home - Home Health Services Reason For Visit: Left Infected Total Shoulder Arthroplasty Discharge Diagnosis: infected left total shoulder Activity: Per Instructions section Weightbearing Comment: non weightbearing left upper extremity Non-emergency contact: Surgeon Call non-emergency contact if: you have any medication questions, your temperature is above 101, your wound has increased redness, your wound has increased drainage and your wound pain has increased Follow-up/Referrals: Shiva He MD [Primary Care Provider] - 05/30/22 9:30 am (DR HICKS) Diet: Regular Addtl Attending Provider Instructions: ACTIVITY RECOMMENDATIONS: SELF CARE INSTRUCTIONS You may perform dry, daily dressing changes once Silverlon dressing is removed. Please keep your incision covered. You may shower 48 hours after surgery. Do not apply soap or any oin tment/lotions directly over incision. Do not soak incision in bath tub/swimming pool. You may use ice as needed to operative shoulder. SPECIAL CARE INSTRUCTIONS: VERY IMPORTANT TO READ AND REVIEW A. There are a few signs you need to watch for after you are home. Call [facility] at [phone] if you experience any of the followin. Increased severe shoulder pain. Some pain is expected especially when you exercise. 2. Increased swelling in you shoulder or arm; pain or swelling in either upper extremity. 3. Any fluid drainage from the incision. 4. Shortness of breath or chest pain. B. Please call [facility] at [phone] if you have any questions or concerns about your operation or recovery. C. Call your physician if: 1. Temperature is greater than 101 degrees (F). 2. Pain is not relieved by prescribed pain medications. 3. Increase drainage or redness from incision. 4. Unanswered questions or concerns. Silverlon- This is a large adhesive bandage that contains silver ions. This helps your incision heal by fighting off bacteria and protecting it from the outside environment. You are permitted to shower with this dressing. This will remain on your incision for 7 days and then should be removed. Some visible blood or drainage through the dressing window is normal. If there is significant drainage or leaking noted before the 7 days notify your doctor's office immediately. Once removed, keep incision clean and dry. If there is any drainage or redness noted, please call your surgeon. FOLLOW UP VISIT: Please call [facility] at [phone] to schedule a follow up appointment with Dr. Arnold or his PA in 12-14 days from your surgery date. Pending Studies at Discharge: No Stand-Alone Forms: My [facility] Brain[facility] TV, Smoking Cessation Medications and DC Order Prescriptions: New acetaminophen [Tylenol Extra Strength] 500 mg Tablet 500 mg PO Q6 Qty: 60 0RF aspirin [Ecotrin] 325 mg Tablet,Delayed Release (Dr/Ec) 325 mg PO QAM 30 Days Qty: 30 0RF ibuprofen 600 mg Tablet 600 mg PO Q6H 14 Days Qty: 56 0RF oxycodone 5 mg Tablet 5 - 10 mg PO Q6H PRN (Reason: pain) Qty: 30 0RF Rx Instructions: ongoing therapy, supervising dr darius arnold, max 6 tabs in 24 hours cefadroxil 500 mg capsule 1,000 mg PO BID 14 Days Qty: 56 0RF ceftriaxone 2 gram recon soln 2 g IV DAILY 14 Days Qty: 14 0RF Continued metoprolol succinate 25 mg tablet extended release 24 hr 12.5 mg PO PM nitroglycerin 0.4 mg Tablet, Sublingual 0.4 mg sublingual UD PRN (Reason: Chest Pain) pravastatin 10 mg Tablet 20 mg PO Q OTHER DAY Rx Instructions: TAKES IN PM. loratadine 10 mg Tablet 10 mg PO QPM cholecalciferol (vitamin D3) 1,000 unit Capsule 1,000 unit PO QPM pantoprazole 40 mg tablet,delayed release (DR/EC) 20 mg PO QAM Miralax 30 ml PO DAILY Discontinued acetaminophen [Tylenol Extra Strength] 500 mg tablet 1,000 mg PO Q6 PRN (Reason: Pain) aspirin [Aspir-81] 81 mg Tablet,Delayed Release (Dr/Ec) 81 mg PO Q OTHER DAY Discharge Orders: Discharge Order (Routine); Ordered 05/28/22 Ordered By: Erwin Miller Admission Data Admit Date/Time: 05/23/22 16:18 Attending Provider: Darius Arnold Admit Provider: Darius Arnold Primary Care Provider: Shiva He Other Providers: Jean-Pierre Chappell ; Vannessa Damon ; Shiva Sellers ; Сергей Irwin ; Zenon Sotelo ; Geovanny Maurer ; Salvador Gaines ; Dayan Bunch ; Kenyatta Desouza ; Alex Laws ; Nir Dash ; Rosemary Temple ; Rios Lowry ; Jose Rosalse ; Bianka Reed ; Joanna Davis ; Ellen Mendoza ; [place]ano Naylor ; Merrill Feldman ; Amber Ramirez ; Vannessa Gardner ; Jack Smith ; Fausto Riojas ; Shiva You ; Saundra Doran ; Brandon Torres ; Marco Julien ; Leighann See ; Tico Bustamante ; Ana Rosa Nails ; Orlin Patino ; Rylee Guerrero ; Panchito De Oliveira ; Aravind Cameron ; Em Leo ; Ermias Mehta ; Liane Donohue ; [facility] ; Carmel Villar ; Johnnie Monreal ; Elis Herrera ; Jen Handy ; Martha Coronado ; Pippa Cowan ; Gladis Marroquin ; Sandy James ; Josefina Suarez Other Interventions: Discharge Summary Assessment (RN) Last Done: 05/28/22 11:14
--- NOTE | 2022-05-30 19:25 | Operative Report ---
Post Operative Report Pre & Post Diagnosis Operation Date: 05/23/22 10:40 Pre-Op Diagnosis: Left shoulder infected total shoulder arthroplasty Post-Op Diagnosis: Left shoulder infected total shoulder arthroplasty I identified the patient and participated in the time-out.: Yes Procedure Operation Date: 05/23/22 10:40 Actual Procedures Left shoulder removal of infected reverse total shoulder arthoplasty, debridement with synovectomy, and placement of antibiotic cement spacer (40305) - Darius Guadarrama M.D. Surgeon Darius Guadarrama MD Casino Accountant Mike Brandt PA-C Estimated Blood Loss 100 Findings Consistent with Post-Op Diagnosis Specimens Specimens x4 for Gram stain, aerobic culture, anaerobic culture Drains None Anesthesia Type General Regional Complications none Disposition Disposition: Recovery Room Indications Mr. Villagomez is a 76-year-old male with chronic and progressively worsening left shoulder pain after a reverse total shoulder arthroplasty over 3 years ago. History, clinical exam, and imaging were consistent with the above diagnosis. Risks, benefits, and alternatives of surgery were explained in detail. The patient understood all this and wished to proceed. Description of Procedure Components Implanted: [employer] InterSpace antibiotic cement shoulder spacer, small (99x7mm) Patient was identified in the preoperative holding area. Operative extremity was marked. Regional blockade was given by the Anesthesia Staff. Patient was then brought back to the operating room, and general anesthesia was induced without complication. Appropriate weight-based dose of Ancef was infused intravenously for antibiotic prophylaxis. The patient was then placed in the beachchair position. Left arm was then prepped and draped in a standard sterile fashion using Chlorhexidine prep. Previous deltopectoral incision was reopened. The interval between the deltoid and pectoralis muscles was scarred and difficult to identify, but I developed the interval starting from the coracoid process proximally and dividing distally. Extensive scar tissue was encountered around the shoulder joint. I developed the interval deep to the deltoid muscle laterally and conjoint tendon medially. Extensive scar tissue was excised as it was encountered. After I had released enough of the scarring around the glenohumeral joint, I was able to dislocate the previous reverse total shoulder arthroplasty. Numerous swabs and tissue specimens were obtained and sent for Gram stain, aerobic culture, and anaerobic culture. I the humeral tray and polyethylene liner from the humeral stem without difficulty. Osseous erosion was noted around the proximal portion of the humeral stem, but the stem remained well fixed within the humerus. I then used flexible osteotomes and malleted them around the proximal porous coated portion of the humeral stem to divide the bony ingrowth. I was eventually able to use a slap hammer to extract the humeral stem. I then turned my attention to the glenoid components. Glenosphere screw was loosened, and then the glenosphere extractor tool was used to remove the glenosphere without difficulty. I then removed the peripheral screws in the glenoid baseplate. The central baseplate screw was loosened. I then passed a curved osteotome under the edges of the glenoid baseplate. I was eventually able to use the baseplate rotation tool to break the bony ingrowth into the central peg and backside of the glenoid baseplate. Glenoid baseplate was then removed. After all the previously placed implants were removed, extensive debridement and synovectomy was performed. Wound was copiously irrigated with sterile saline via pulsatile irrigation. I then selected an appropriate size antibiotic cement spacer. The humeral canal had to be reamed open distal to the tip of the previous humeral stem to accommodate the longer stem of the antibiotic cement spacer. I then mixed 2 g of vancomycin powder into a batch of bone cement. This was allowed to partially cure and become doughy so it did not stick to the bony surfaces. I packed this cement around the proximal portion of the antibiotic cement spacer stem to provide some rotational control of the spacer. Spacer was then implanted in appropriate position and allowed to completely cure. Glenohumeral joint was then reduced. Wound was then copiously irrigated with sterile saline. Deep fascia was closed with 0 V-lock suture. Subcutaneous tissue was closed with 2-0 V-lock, and skin was closed with 3-0 V-lock. Skin was then sealed with Dermabond. Sterile dressings were then applied with a waterproof silver-impregnated dressing, and the arm was placed into a sling. The patient was awakened from anesthesia and taken to the Post Anesthesia Care Unit in stable condition. There were no immediate complications from the procedure. I was present and scrubbed for the entire procedure, with the exception of final skin closure and dressing application. Due to the complex nature of the procedure, the entire surgery was performed with the operational assistance of Mike Brandt PA-C. The culinary assistant, under direct supervision, was involved in the performance of all aspects of the surgical procedure including hemostasis, tissue incision and retraction, instrument management, patient positioning, and wound closure. I attest to the content of the Intraoperative Record and any orders documented therein. Any exceptions are noted below.
== END 2022-05-28 12:31 | disposition home health service (06) | DRG 497 ==
LOC: ASU 07:52 → 3E 16:18

== ENCOUNTER 2022-11-21 08:16 | Inpatient (IN) ==
--- NOTE | 2022-09-27 10:30 | Communication Note ---
Pt currently scheduled for left shoulder revision reverse total shoulder replacement 10/24/[address] Guadarrama. Pt scheduled for PAT on 10/10/22. Received phone call from OR - OR was attempting to get pacemaker rep onsite due to indwelling pacemaker and shoulder operation. [employer] rep is not available the week of October 24 but would be available the following week. Did call Dr. Guadarrama's office (spoke with Keyonna). Did recommend patient get rescheduled to following week if possible since pacemaker rep will be needed onsite.
--- NOTE | 2022-10-01 10:39 | PAT Medication Instructions ---
Medication Instructions Date of Service October 01, 2022 Home Medications cholecalciferol (vitamin D3) 25 mcg (1,000 unit) capsule 1,000 unit PO QPM loratadine 10 mg tablet 10 mg PO QPM PRN seasonal allergies pravastatin 10 mg tablet 20 mg PO Q OTHER DAY nitroglycerin 0.4 mg sublingual tablet 0.4 mg sublingual UD PRN Chest Pain metoprolol succinate 25 mg tablet,extended release 24 hr 12.5 mg PO PM aspirin 81 mg capsule 81 mg PO Q2D pantoprazole 20 mg tablet,delayed release 20 mg PO QAM polyethylene glycol 3350 17 gram/dose oral powder (Miralax) 17 g PO HS Continue as directed pravastatin 10 mg tablet 20 mg PO Q OTHER DAY nitroglycerin 0.4 mg sublingual tablet 0.4 mg sublingual UD PRN Chest Pain (if needed) aspirin 81 mg capsule 81 mg PO Q2D (unless surgeon directed otherwise) Take morning of surgery With a small sip of water, OTHERWISE NOTHING TO EAT OR DRINK AFTER MIDNIGHT: pantoprazole 20 mg tablet,delayed release 20 mg PO QAM Take evening before surgery cholecalciferol (vitamin D3) 25 mcg (1,000 unit) capsule 1,000 unit PO QPM loratadine 10 mg tablet 10 mg PO QPM PRN seasonal allergies (if needed) metoprolol succinate 25 mg tablet,extended release 24 hr 12.5 mg PO PM polyethylene glycol 3350 17 gram/dose oral powder (Miralax) 17 g PO HS Other Notes If you have any questions please call us at [phone] or [phone] or [phone] or [phone]
--- NOTE | 2022-10-10 10:20 | Anesthesiology Consultation ---
Date of Service October 10, 2022 Assessment & Plan (1) Encounter for pre-operative examination: - COVID screening: Per assessment on 10/10: No known COVID-19 positive contacts or current COVID-19 related symptoms. Travel screen negative. Patient vaccinated. At surgeon discretion if preop Covid testing being done. - Outpatient joint assessment: Pt currently scheduled for inpatient pathway. If surgeon requests review for outpatient joint pathway, patient is not recommended candidate for outpatient joint program from anesthesia standpoint. - S/P Left shoulder removal of infected TSA; place antibiotic spacer (05/23/2022): Grade 2 view, Lowry #2, ETT 8.0 + PNB at [facility] - Pacer rep: Right sided [employer] PPM. Patient scheduled for Left shoulder surgery. Per Venus Davis PAC communication (09/27/22): "Received phone call from OR - OR was attempting to get pacemaker rep onsite due to indwelling pacemaker and shoulder operation. [employer] rep is not available the week of October 24 [original surgery date] but would be available the following week. Did call Dr. Guadarrama's office (spoke with Keyonna). Did recommend patient get rescheduled to following week if possible since pacemaker rep will be needed onsite." > surgery rescheduled to 11/21. Chema ([employer] rep) aware/able to be present for rescheduled DOS per e-mail communication with Rebecca Juarez/BOY. - Patient states he is scheduled for routine follow-up appointment with cardiology prior to surgery. Awaiting upcoming cardiology office visit note (Dr. Dugan appt 10/23) as well as most recent pacer check report. Chart Review Chart Review: Patient seen in Pre Admission Testing Teaching & Discussion Pre-Anesthesia Teaching/Discussion Notes: Instructed NPO after midnight before surgery,except medications with 15 cc of water. Medication instructions prov ided according to the PAT guidelines. History Surgery Operation Date: 11/21/22 09:25 Proposed Procedures p Left Shoulder Revision Reverse Total Shoulder Replacement - Darius Guadarrama M.D. Height/Weight Height: 5 ft 9.5 in Weight: 89.9 kg Allergies Allergy/AdvReac Type Severity Reaction Status Date / Time sulindac Allergy Severe Dyspnea Verified 10/04/22 15:53 Medications Home Medications Medication Instructions Recorded Confirmed Last Taken cholecalciferol (vitamin D3) 25 1,000 unit PO QPM 03/11/19 06/22/23 02/15/23 18:30 mcg (1,000 unit) capsule loratadine 10 mg tablet 10 mg PO QPM PRN seasonal allergies 06/15/18 09/26/22 05/20/22 pravastatin 10 mg tablet 20 mg PO Q OTHER DAY 06/15/18 09/26/22 05/22/22 18:30 nitroglycerin 0.4 mg sublingual 0.4 mg sublingual UD PRN Chest Pain 01/26/19 09/26/22 Unknown tablet metoprolol succinate 25 mg 12.5 mg PO PM 05/02/22 09/26/22 05/22/22 18:30 tablet,extended release 24 hr aspirin 81 mg capsule 81 mg PO Q2D 09/26/22 09/26/22 Unknown pantoprazole 20 mg tablet,delayed 20 mg PO QAM 09/26/22 09/26/22 Unknown release polyethylene glycol 3350 17 17 g PO HS 09/26/22 09/26/22 Unknown gram/dose oral powder (Miralax) Past Medical History Medical History Asthma Bifascicular block LAFB, RBBB noted on 01/16/21 EKG, not present on more recent available EKGs Degenerative disc disease Hiatal hernia History of kidney stones passed on own History of prostate cancer s/p prostatectomy HLD (hyperlipidemia) HYDABURG (hard of hearing) Neuropathy Per records, patient denies Nocturia Obesity Pacemaker Implanted 2020, [employer] Follows with Khushbu Thacker/Dr. Dugan Poor urinary stream Sleep apnea CPAP (non-compliant) TIA (transient ischemic attack) 2020 Urinary frequency Exercise / Class Metabolic Activity II 4-5 Yardwork/Stairs/Walk up hill Past Family History Family History Mother Diabetes Son Esophageal cancer Other Heart disease No family history of adverse response to anesthesia Past Surgical History Surgical History H/O shoulder surgery Left shoulder removal of infected TSA; place antibiotic spacer (05/23/2022): Grade 2 view, Lowry #2, ETT 8.0 + PNB at [facility] History of colonoscopy History of esophageal dilatation History of esophagogastroduodenoscopy (EGD) History of open reduction and internal fixation (ORIF) procedure LLE History of prostate biopsy History of prostatectomy History of reverse total replacement of left shoulder joint 02/25/19 Grade 2 view, MAC 3, ETT 8 + PNB History of tonsillectomy S/P appendectomy S/P cardiac pacemaker procedure 2020, [facility] Past Anesthesia History No Hx of Anesthesia Complications and No Family Hx of Anesthesia Complications History of PONV No Hx of PONV and No Hx of Motion Sickness Social History Smoking Status: Former smoker tobacco type: cigarettes Do You Dip or Chew Tobacco: No Smoking End Date: Quit 1979 Hx Alcohol Use: Yes Alcohol type: beer alcohol intake frequency: holidays/special occasions only Hx Substance Use: No substance use type: does not use Review of Systems Seasonal allergies- chronic, occasional cough in mornings (unchanged) Patient denies chest pain, shortness of breath, dyspnea on exertion, fever, chills, wheezing, palpitations. Physical Exam Vital Signs VITALS BP 131/77 P 61 TEMP 98.1 SP02 95%RA RESP 16 PHYSICAL Full cervical extension range of motion. Full TMJ range of motion. TMD 3 finger breaths Mallampati Score 3 Dentition: missing sides/molars, lower front teeth "repaired" Lungs: clear throughout to auscultation Cardiac: regular rate and rhythm, no murmurs noted Spine: normal Carotid arteries: negative bruit Extremities: no LE edema Lab Results Anesthesia Preop Results Results Anesthesia Widget: WBC 5.48 K/ul (4.8-10.8) 10/10/22 Hgb 15.0 g/dl (14.0-18.0) 10/10/22 Hct 44.1 % (42.0-52.0) 10/10/22 Plt 185 K/uL (130-400) 10/10/22 Na 141 mmol/L (136-145) 10/10/22 K 4.3 mmol/L (3.5-5.1) 10/10/22 Cl 107 mmol/L (98-107) 10/10/22 CO2 28 mmol/L (21-32) 10/10/22 BUN 17 mg/dl (6-23) 10/10/22 Creat 0.96 mg/dl (0.6-1.4) 10/10/22 Glucose Level 97 mg/dl (70-99(Fasting)) 10/10/22 PT 10.7 Seconds (9.0-12.0) 10/10/22 PTT 25.6 Seconds (21.0-31.0) 10/10/22 INR 1.0 (0.9-1.1) 10/10/22 Blood Type O Positive 10/10/22 Antibody Screen NEGATIVE 10/10/22 Testing Electrocardiogram Date: 05/09/22 Atrial paced rhythm, rate 61 bpm. Left axis deviation. RBBB. Chest X-Ray Date: 05/15/22 PA and lateral chest radiographs are compared to chest x-ray and chest CT dated 01/16/2021. A 2-lead cardiac pacemaker is unchanged in position and partially obscures the right upper chest. The heart is mildly enlarged and noting atherosclerotic calcification of the thoracic area. The pulmonary vasculature is noncongested. Emphysema and chronic interstitial thickening is similar to previous. There is bibasilar scarring/atelectasis. Trace pleural effusions are suggested on the lateral projection. There is no airspace consolidation typical for pneumonia or pneumothorax. The skeletal structures are osteopenic. The bony thorax appears intact. A left shoulder arthroplasty is in place. IMPRESSION: Cardiomegaly and cardiac pacemaker without radiographic evidence of congestive failure. Emphysema. Trace pleural effusions. Echocardiogram Date: 05/14/22 EF 60% No LV regional wall motion abnormalities No LVH Grade I diastolic dysfunction Dilated RV Pacemaker lead noted in RV Dilated RA Calcified, tricuspid aortic valve without stenosis Mild aortic insufficiency Trace to mild mitral regurgitation Mild tricuspid regurgitation No significant change compared to previous study from 11/17/2020 Stress Test Date: 12/27/20 Exercise METS 8.5 MPHR 74% Normal LV wall motion. Negative for ischemia at 74% MPHR. COVID-19 Risk Screen Screening Information COVID-19 Screen Date: 10/10/22 Exposure 21 Days Family/Household +COVID Last 21 Days: No Exposure 10 Days Any COVID Exposure Last 10 Days: No Symptoms Last 10 Days Experienced COVID Sx Last 10 Days: No + COVID 0-90 Days COVID + in Last 0-90 Days: No
--- NOTE | 2022-11-20 12:45 | History & Physical Report ---
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 He has now completed his course of antibiotics. Recent lab work and aspiration all look good for clearance of the infection. I think with everything pointing to clearance of the infection, we can proceed with planning his stage II revision total shoulder arthroplasty with removal of his antibiotic cement spacer and placement of a revision reverse total shoulder arthroplasty. Risks, benefits, and alternatives of surgery were explained in detail. The surgical procedure, as well as postoperative recovery and rehabilitation, was also explained in detail. Risks include bleeding; infection; damage to surrounding structures such as nerves, blood vessels, and tendons that run in the area; persistent pain or stiffness; hardware failure; dislocation; brachial plexus palsy; blood clots; or need for further surgery. The patient understands all of this and wishes to proceed with surgery. Risks will be reviewed on the day of surgery and informed consent obtained. History of Present Illness Chief Complaint: Previous infected left total shoulder arthroplasty Primary Care Provider: Shiva He MD 09/03/22 - Left shoulder fluoroscopically guided aspiration 05/23/22 - Left shoulder removal of infected reverse total shoulder arthroplasty, debridement, placement of antibiotic cement spacer; preoperative and intraoperative cultures grew Propioni acnes 04/23/22 - Left shoulder fluoroscopically guided aspiration 02/25/19 - Left reverse total shoulder arthroplasty with biceps tenodesis Mr. Villagomez is now about 4 months out from his previous stage I revision surgery and doing well. He has completed his course of antibiotics per Infectious Disease, including ceftriaxone 2 g IV every 24 hours x 2 weeks, followed by cefadroxil 1 g every 12 hours for 2 weeks. He has been doing well since surgery. He denies any drainage from his incision in the past month. No redness or swelling. He denies significant pain. He never required any narcotic medications. He denies fevers, chills, or night sweats. He has difficulty with motion, especially active abduction. Allergies Allergy/AdvReac Type Severity Reaction Status Date / Time sulindac Allergy Severe Dyspnea Verified 10/04/22 15:53 Home Medications Medication Instructions Recorded Confirmed Type cholecalciferol (vitamin D3) 25 1,000 unit PO QPM 06/15/18 09/26/22 History mcg (1,000 unit) capsule loratadine 10 mg tablet 10 mg PO QPM PRN seasonal allergies 06/15/18 09/26/22 History pravastatin 10 mg tablet 20 mg PO Q OTHER DAY 06/15/18 09/26/22 History nitroglycerin 0.4 mg sublingual 0.4 mg sublingual UD PRN Chest Pain 01/26/19 09/26/22 History tablet metoprolol succinate 25 mg 25 mg PO PM 05/02/22 10/29/22 History tablet,extended release 24 hr aspirin 81 mg capsule 81 mg PO Q2D 09/26/22 09/26/22 History pantoprazole 20 mg tablet,delayed 20 mg PO QAM 09/26/22 09/26/22 History release polyethylene glycol 3350 17 17 g PO HS 09/26/22 09/26/22 History gram/dose oral powder (Miralax) Past Med/Surg History Medical History Asthma Bifascicular block LAFB, RBBB noted on 01/16/21 EKG, not present on more recent available EKGs Degenerative disc disease Hiatal hernia History of kidney stones passed on own History of prostate cancer s/p prostatectomy HLD (hyperlipidemia) [place] (hard of hearing) Neuropathy Per records, patient denies Nocturia Obesity Pacemaker Implanted 2020, [employer] Follows with Khushbu Thacker/Dr. Dugan Poor urinary stream Sleep apnea CPAP (non-compliant) TIA (transient ischemic attack) 2020 Urinary frequency Surgical History H/O shoulder surgery Left shoulder removal of infected TSA; place antibiotic spacer (05/23/2022): Grade 2 view, Lowry #2, ETT 8.0 + PNB at [facility] History of colonoscopy History of esophageal dilatation History of esophagogastroduodenoscopy (EGD) History of open reduction and internal fixation (ORIF) procedure LLE History of prostate biopsy History of prostatectomy History of reverse total replacement of left shoulder joint 02/25/19 Grade 2 view, MAC 3, ETT 8 + PNB History of tonsillectomy S/P appendectomy S/P cardiac pacemaker procedure 2020, [facility] Family History Mother Diabetes Son Esophageal cancer Other Heart disease No family history of adverse response to anesthesia Social History Smoking Status: Former smoker Smoking End Date: Quit 1979; Second Hand Exposure: No; Do You Dip or Chew Tobacco: No; Tobacco Cessation Education Requested by Patient: No Hx Alcohol Use: Yes Alcohol type: beer Hx Substance Use: No Preferred Language: Vietnamese Communication Ability: Effective Copy Operator Required: No Beliefs That Will Affect Care: None marital status: Current Living Situation: Spouse Other Information That Helps Us Care for You: No Feels Safe at Home: Yes Safety Concerns: Feels Safe At This Time Assistive Devices: CPAP, Glasses and Hearing Aid - Bilateral Physical Exam Physical Exam: Examination of the left shoulder reveals a well-healed surgical incision without any evidence of infection. No erythema, fluctuance, induration, or drainage. He has fairly limited active range of motion of the shoulder as expected, especially the lack of active abduction. Results & Data Laboratory Results Previous x-rays of the left shoulder were reviewed. Antibiotic cement spacer is in place. No significant change compared to previous x-rays 4 weeks ago. Joint aspiration 09/03/22: Gram stain and culture are negative and final. Synovasure preliminary results: Alpha defensin negative, synovial fluid CRP 0.05, neutrophil elastase negative, crystals negative, microbial ID panel negative, including P acnes and Staphylococcus, RBC 8000, WBC 277 Labs 08/19: WBC - 4.91 ESR - 15 CRP <0.50 Labs 07/08: ESR - 14 CRP < 0.5 Labs 06/07: ESR - 31 CRP <0.29
[~2022-11-21 08:16] MED LIST changes: +LR 60ML/HR IV SCH
--- NOTE | 2022-11-21 08:43 | History & Physical Bridge Note ---
Date of Service November 21, 2022 History & Physical Bridge Note I have examined the patient, reviewed the History & Physical and in the interval since the performance of the History & Physical I have noted the following changes of clinical significance: no changes noted
[2022-11-21] MEDS ORDERED: MIDAZOLAM HCL 1 MG/ML 2ML VIAL ONE (09:33)
[2022-11-21] MEDS ORDERED: ONDANSETRON INJ 2 MG/ML 2 ML VIAL IV PRN ×2 (09:36→16:18)
[2022-11-21] MEDS ORDERED: ePHEDrine sulfate 50 MG/ML AMP IV PRN (09:36)
[2022-11-21] MEDS ORDERED: ATROPINE SULFATE 0.1 MG/ML 10ML SYR IV PRN (09:36)
[2022-11-21] MEDS ORDERED: fentaNYL citrate PF 100 MCG/2 ML VIAL IV PRN (09:36)
[2022-11-21] MEDS ORDERED: ROCURONIUM BROMIDE 10 MG/ML 5 ML VIAL IV ONE (09:48)
[2022-11-21] MEDS ORDERED: fentaNYL citrate PF 100 MCG/2 ML VIAL ONE (09:48)
[2022-11-21] MEDS ORDERED: PROPOFOL IV EMULSION 10 MG/ML 20 ML VIAL IV ONE (09:48)
[2022-11-21] MEDS ORDERED: LIDOCAINE 2% 2 ML VIAL/AMP(20MG/ML) INFIL ONE (09:48)
--- NOTE | 2022-11-21 13:52 | Operative Report ---
Post Operative Report Pre & Post Diagnosis Operation Date: 11/21/22 10:05 Pre-Op Diagnosis: Left shoulder previous infected reverse total shoulder arthroplasty Post-Op Diagnosis: Left shoulder previous infected reverse total shoulder arthroplasty I identified the patient and participated in the time-out.: Yes Procedure Operation Date: 11/21/22 10:05 Actual Procedures Left shoulder revision reverse total shoulder arthoplasty (70940) - Darius Guadarrama M.D. Surgeon Darius Guadarrama MD Offender Job Retention Specialist Mike Brandt PA-C Estimated Blood Loss 125 Findings Consistent with Post-Op Diagnosis Specimens None Drains None Anesthesia Type General Regional Complications none Disposition Disposition: Recovery Room Indications Mr. Villagomez is a 76-year-old male who previous underwent a left reverse total shoulder arthroplasty in February 2019. He did well for several years and subsequently developed a periprosthetic infection. He underwent irrigation debridement and removal of his previous reverse total shoulder arthroplasty with placement of an antibiotic cement spacer in a stage I revision in May 2022. Extensive preoperative testing showed clearance of his previous infection. History, clinical exam, and imaging were consistent with the above diagnosis. Risks, benefits, and alternatives of surgery were explained in detail. The patient understood all this and wished to proceed. Description of Procedure Components Implanted: Tornier Reverse Total Shoulder implants Perform glenoid baseplate: 29mm, 15 degree full wedge with 9.5 mm central screw and 5.0mm peripheral screws x 4 Glenosphere: 39mm, +3mm eccentric offset Aequalis Flex Revive humeral stem: 130 x 15 mm construct (15mm proximal body, 90 x 15 mm fully coated distal stem) Humeral tray: 3.5 mm offset, +0mm thickness Polyethylene insert: 39mm, +6mm thickness Patient was identified in the preoperative holding area. Operative extremity was marked. Regional blockade was given by the Anesthesia Staff. Patient was then brought back to the operating room, and general anesthesia was induced without complication. Appropriate weight-based dose of Ancef was infused intravenously for antibiotic prophylaxis. The patient was then placed in the beachchair position. Left arm was then prepped and draped in a standard sterile fashion using Chlorhexidine prep. Previous deltopectoral incision was reopened. The interval between the deltoid and pectoralis muscles was scarred and difficult to identify, but I developed the interval starting from the coracoid process proximally and dividing distally. Extensive scar tissue was encountered around the shoulder joint. I developed the interval deep to the deltoid muscle laterally and conjoint tendon medially. Extensive scar tissue was excised as it was encountered. After I had released enough of the scarring around the glenohumeral joint, I was able to dislocate the previously placed antibiotic cement humeral spacer implant. This cement spacer was removed without difficulty. I then used a curette, rongeur, and reverse curette down the humeral shaft to remove fibrous scar tissue that had formed around the previous antibiotic cement spacer. I then used humeral reamers to ream the humeral canal to the depth corresponding to the planned humeral stem length until I got good cortical chatter. I then assembled and inserted a trial humeral stem construct. A protective cap was then placed on top of the humeral trial. I then turned my attention to the glenoid. Again, there was extensive fibrous scar tissue around the glenoid that had to be aggressively circumferentially debrided down to the glenoid bone. Small curette was used to locate the previous central hole for the glenoid baseplate. I then placed a guidewire directly down this previous central drill hole. The 15 degree angled reamer was then inserted over the guidepin and an reamed to clear any remaining fibrous tissue. The central screw hole was drilled, and appropriate length 9.5 mm central screw was selected. The baseplate was then implanted into place according to our preoperative Blueprint plan by tightening down the central screw. A peripheral 5mm nonlocking screw was placed superiorly first for additional compression of the baseplate, and then additional locking 5 mm peripheral screws were placed to complete fixation of the baseplate. Glenosphere was then impacted and secured. A trial humeral tray and insert were placed on the trial humeral stem, and a trial reduction was carried out. Once I achieved acceptable joint stability and range of motion with the trial implants, the final humeral stem construct was assembled on the back table and then impacted into proper position. I then placed the trial tray and a trial polyethylene insert on the real humeral stem and again performed a trial reduction. Once I achieved acceptable joint stability and range of motion, I then implanted the final humeral tray and polyethylene insert. The shoulder was then reduced and taken through range of motion to ensure good stability and acceptable motion. Wound was then copiously irrigated with sterile saline. Deep fascia was closed with 0 V-lock suture. Subcutaneous tissue was closed with 2-0 V-lock, and skin was closed with 3-0 V-lock. Skin was then sealed with Dermabond. Sterile dressings were then applied with a waterproof silver-impregnated dressing, and the arm was placed into a sling. The patient was awakened from anesthesia and taken to the Post Anesthesia Care Unit in stable condition. There were no immediate complications from the procedure. I was present and scrubbed for the entire procedure, with the exception of final skin closure and dressing application. Due to the complex nature of the procedure, the entire surgery was performed with the operational assistance of Mike Brandt PA-C. The paraprofessional education assistant, under direct supervision, was involved in the performance of all aspects of the surgical procedure including hemostasis, tissue incision and retraction, instrument management, patient positioning, and wound closure. I attest to the content of the Intraoperative Record and any orders documented therein. Any exceptions are noted below.
[2022-11-21] MEDS ORDERED: SUGAMMADEX SODIUM 200 MG/2 ML VIAL IV ONE ×2 (14:00→14:25)
--- NOTE | 2022-11-21 15:10 | Anesthesiology Progress Note ---
Date of Service November 21, 2022 Anesthesia Post Procedure Vital Signs Vital Signs: Temp Pulse Pulse Resp BP Pulse Ox O2 Del Method 11/21/22 14:50 60 14 110/67 98 Room Air 11/21/22 15:00 97.3 F L 60 12 120/69 99 Room Air 11/21/22 14:50 60 14 128/64 100 Room Air 11/21/22 14:30 62 18 118/73 100 Oxymask 11/21/22 14:20 97.0 F L 60 18 139/77 100 Oxymask 11/21/22 09:08 97.7 F 62 20 141/83 H 97 Room Air O2 Flow Rate 11/21/22 14:50 11/21/22 15:00 11/21/22 14:50 11/21/22 14:30 3 11/21/22 14:20 5 11/21/22 09:08 Pain Intensity Left Axilla: Pain Intensity: 5 Transfer of Care Handoff Completed per policy Notes Mental Status: alert / awake / arousable and participated in evaluation Patient Amnestic to Procedure: Yes Nausea / Vomiting: adequately controlled Pain: adequately controlled Airway Patency, RR, SpO2: stable & adequate BP & HR: stable & adequate Hydration State: stable & adequate Anesthetic Complications: no major complications apparent and Pt Satisfied with anesthetic care
--- NOTE | 2022-11-21 15:49 | XRay Report ---
XR shoulder LT min 2V routine CLINICAL HISTORY: Post shoulder surgery COMPARISON STUDY: Left shoulder 05/23/2022. FINDINGS: Status post reverse left total shoulder arthroplasty. The hardware appears intact. No acute fracture or dislocation within the left shoulder. There is an old, healed left mid shaft clavicle fr acture again noted. IMPRESSION: Status post reverse left total shoulder arthroplasty. No evidence for hardware complicat ion. ACT 112: Negative or not required by law. Electronically signed by: Dhruv Elizabeth M.D. 11/21/2022 3:48 PM
[2022-11-21] MEDS ORDERED: bisacodyL 10 MG SUPP PR PRN (16:18)
[2022-11-21] MEDS ORDERED: NITROGLYCERIN SL 0.4 MG/TAB TAB SL PRN (16:18)
[2022-11-21] MEDS ORDERED: oxyCODONE HCL IR 5 MG TAB (IMMEDIATE RELEASE) PO PRN (16:18)
[2022-11-21] MEDS ORDERED: METOCLOPRAMIDE HCL INJ 5 MG/ML 2 ML VIAL IV PRN (16:18)
[2022-11-21] MEDS ORDERED: LORATADINE 10 MG TAB PO PRN (16:18)
[2022-11-21] MEDS ORDERED: NALOXONE HCL 0.4 MG/1 ML VIAL/CARP IV PRN (16:18)
[2022-11-21] MEDS ORDERED: MAGNESIUM HYDROXIDE SUSP 30 ML UDC PO PRN (16:18)
[2022-11-21] MEDS: SODIUM CHLORIDE 0.9% 1000ML 1,000 ML IV SCH (16:32)
[2022-11-21] MEDS: ACETAMINOPHEN 500 MG TAB PO SCH ×2 (17:57→22:43)
[2022-11-21] MEDS ORDERED: METOPROLOL SUCC 25MG EXT REL TAB PO SCH (21:00)
[2022-11-21] MEDS ORDERED: CHOLECALCIFEROL 1,000 UNITS 25 MCG TAB PO SCH (21:00)
[2022-11-21] MEDS ORDERED: SENNA 8.6 MG TAB PO SCH (21:00)
[2022-11-21] MEDS: ceFAZolin 2000MG 2,000 MG/15 ML SYR IV SCH (21:07)
[2022-11-21] MEDS: IBUPROFEN 600 MG TAB PO SCH (21:08)
[2022-11-21] MEDS: DOCUSATE SODIUM 100 MG CAP PO SCH (21:08)
[2022-11-22] MEDS: ceFAZolin 2000MG 2,000 MG/15 ML SYR IV SCH (02:22)
[2022-11-22] MEDS: IBUPROFEN 600 MG TAB PO SCH ×2 (02:22→07:51)
[2022-11-22] MEDS: SODIUM CHLORIDE 0.9% 1000ML 1,000 ML IV SCH (02:26)
[2022-11-22] MEDS: ACETAMINOPHEN 500 MG TAB PO SCH (05:48)
[2022-11-22 06:39] LABS: Basophils # (auto) 0.01 K/uL (0-0.2); Basophils % (auto) 0.1 %; Hemoglobin 13.2 g/dl (14.0-18.0); Immature Granulocytes # (auto) 0.06 K/uL (0.01-0.20); Immature Granulocytes % (auto) 0.4 %; Lymphocytes # (auto) 0.94 K/uL (1.2-3.4); Mean Corpuscular Hgb Conc 33.8 g/dL (32.0-36.0); Mean Corpuscular Volume 91.5 fL (80.0-100.0); Mean Platelet Volume 10.4 fL (9.4-12.4); Monocytes # (auto) 1.11 K/uL (0.11-0.59); Monocytes % (auto) 8.3 %; Neutrophils # (auto) 11.32 K/uL (1.40-6.50); Neutrophils % (auto) 84.2 %; Platelet Count 192 K/uL (130-400); RDW Coefficient of Variation 14.7 % (11.5-14.5); RDW Standard Deviation 49.7 fL (36.4-46.3); Red Blood Count 4.26 M/uL (4.70-6.10); White Blood Count 13.44 K/ul (4.8-10.8)
[2022-11-22] MEDS: DOCUSATE SODIUM 100 MG CAP PO SCH (07:50)
--- NOTE | 2022-11-22 08:03 | Orthopedic Progress Note ---
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 Med management 2. DVT prophylaxis- ASA, SCDs 3. PT/OT 4. D/C planning- home w/ OPPT Admission and Anticipated Discharge Date Admission Date: November 21, 2022 Subjective Pt resting in bed, denies complaints, pain controlled Physical Exam Physical Exam: Silverlon dressing in place, fingers still feel "a little funny" likely from block, mobile Results & Data Vital Signs (Past 12 Hours) Vital Signs Temp Pulse Pulse Resp BP Pulse Ox O2 Del Method 11/22/22 07:36 36.5 C 62 18 120/68 98 Room Air 11/22/22 03:08 36.5 C 71 18 132/72 96 Room Air 11/21/22 22:33 36.8 C 66 16 108/63 95 Room Air 11/21/22 21:09 64 110/66 Laboratory Results 11/22/22 11/22/22 11/21/22 Range/Units 05:53 05:53 08:37 WBC 13.44 H (4.8-10.8) K/ul RBC 4.26 L (4.70-6.10) M/uL Hgb 13.2 L (14.0-18.0) g/dl Hct 39.0 L (42.0-52.0) % MCV 91.5 (80.0-100.0) fL MCH 31.0 (25.0-34.0) pg MCHC 33.8 (32.0-36.0) g/dL RDW Std Deviation 49.7 H (36.4-46.3) fL RDW Coeff of Swetha 14.7 H (11.5-14.5) % Plt Count 192 (130-400) K/uL MPV 10.4 (9.4-12.4) fL Immature Gran % (Auto) 0.4 % Neut % (Auto) 84.2 % Lymph % (Auto) 7.0 % Stephens % (Auto) 8.3 % Eos % (Auto) 0.0 % Baso % (Auto) 0.1 % Neut # (Auto) 11.32 H (1.40-6.50) K/uL Lymph # (Auto) 0.94 L (1.2-3.4) K/uL Stephens # (Auto) 1.11 H (0.11-0.59) K/uL Eos # (Auto) 0.00 (0-0.50) K/uL Baso # (Auto) 0.01 (0-0.2) K/uL Immature Gran # (Auto) 0.06 (0.01-0.20) K/uL Sodium Pending Potassium Pending Chloride Pending Carbon Dioxide Pending Anion Gap Pending BUN Pending Creatinine Pending Est Cr Clr Drug Dosing Pending Est GFR ( Amer) Pending Est GFR (Non-Af Amer) Pending BUN/Creatinine Ratio Pending Glucose Pending Calcium Pending Blood Type O Positive Antibody Screen NEGATIVE
[2022-11-22 08:04] LABS: BUN Creatinine Ratio 23.7 (10-20); Calcium 8.6 mg/dl (8.6-10.3); Creatinine Clr Calc Pharmacy 73.7 ml/min; Est GFR (African American) 88.1 ml/min; Est GFR (Non-African American) 76.1 ml/min; Potassium 4.3 mmol/L (3.5-5.1)
[2022-11-22] MEDS ORDERED: PANTOprazole 40 MG TAB PO SCH (09:00)
[2022-11-22] MEDS ORDERED: ASPIRIN 325 MG ECTAB PO SCH (09:00)
[2022-11-22] MEDS ORDERED: MULTIVITAMIN TAB PO SCH (09:00)
--- NOTE | 2022-11-22 16:49 | Discharge Summary ---
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 Villagomez is now about 4 months out from his previous stage I revision surgery and doing well. He has completed his course of antibiotics per Infectious Disease, including ceftriaxone 2 g IV every 24 hours x 2 weeks, followed by cefadroxil 1 g every 12 hours for 2 weeks. He has been doing well since surgery. He denies any drainage from his incision in the past month. No redness or swelling. He denies significant pain. He never required any narcotic medications. He denies fevers, chills, or night sweats. He has difficulty with motion, especially active abduction. 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 Ordered Studies 11/21/22 05:00 US - OR guided needle placemen Routine Hospital Course (1) Infection and inflammatory reaction due to unspecified internal joint prosthesis, subsequent encounter: Patient underwent a left revision reverse total shoulder arthroplasty on the date of admission. Patient tolerated the procedure well and was transferred up to the general orthopedic surgery floor in stable condition. Perioperative antibiotic coverage was initiated, and continued for 24 hours postoperatively. DVT prophylaxis was initiated consisting of SCDs and aspirin 325 mg daily. Perioperative pain control regimen was transitioned to strictly oral pain medications by postoperative day 1. On postoperative day 1 the patient was doing very well. Pain was well controlled, and patient was mobilizing well with therapy. Patient was determined be safe and ready for discharge to home. 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 [Physician] - Diet: Heart Healthy Addtl Attending Provider Instructions: Things to Watch Out For -Go to the Emergency Room if you have sudden onset of nausea, vomiting, chest pain, shortness of breath, or uncontrollable pain. -Call the clinic or go to the Emergency Room if you have a sudden increase in the amount of wound drainage or the drainage becomes thick, yellow or green, or foul-smelling. -For routine questions, call the clinic at [phone] during regular business hours (8am-5pm). For urgent issues after regular business hours, you may call the clinic to be connected to the on-call physician. Dressings -A special waterproof, silver-impregnated dressing was placed on your shoulder. Keep this dressing in place for 1 week after surgery. You may shower with the waterproof dressing in place, but do not soak the dressing in the bathtub or pool. -One week after surgery, you may remove the waterproof dressing. You may continue to shower, and let water run BRIEFLY over the incision, but do not soak the incision in the bathtub or pool for 2 weeks. You may also gently clean the incision with mild soap and water; pat the incision dry after cleaning-do not rub the incision. Apply a new dressing daily thereafter. Shoulder Exercises -Keep your operative shoulder in the sling for comfort, except as detailed below. -You should come out of the sling 4-5 times a day for passive pendulum exercises: lean over and swing your arm in a circular pattern. -You should also do active-assisted forward flexion exercises: use your opposite hand to lift your operative arm forward to 90 degrees. -Do not use your arm to push yourself up out of bed or up from a seated position. Ice Pack -You may use an ice pack for pain relief. You should use it 20-30 minutes at a time. Place a towel between the ice pack and your skin to prevent frostbite. -You should use the ice pack fairly regularly for the first 1-2 weeks after surgery to help reduce pain and inflammation. -About 2 weeks after your surgery, you should start using heat to loosen up your shoulder prior to doing your stretching exercises, then use the cooling sleeve after your exercises are complete to reduce swelling and pain. Pain Medicines -Your prescriptions for pain medications have already been sent to the pharmacy on file at [facility]. -You have been prescribed an anti-inflammatory (Motrin/ibuprofen) and a non- narcotic pain medicine (Tylenol/acetaminophen). These are your primary pain medications. Take them each every 6 hours as instructed. It is recommended that you stagger these medicines every 3 hours (i.e. take ibuprofen at 8:00 am, then acetaminophen at 11:00 am, then ibuprofen at 2:00 pm, etc) -DO NOT take any additional anti-inflammatories (Advil, Aleve/naproxen, Mobic/meloxicam, Celebrex) or any additional Tylenol/acetaminophen products with these prescribed medications. -You have also been prescribed an additional narcotic pain medication (oxycodone). Take this medicine ONLY for breakthrough pain not controlled by the ibuprofen and acetaminophen. -Do not drive or operate heavy machinery while taking the narcotic medication. -Common side effects of narcotic pain medicines include itching, nausea, constipation, and feeling "loopy". However, if you develop a rash or hives, stop taking the medicine and call the clinic. If you develop swelling in your throat or difficulty breathing, go to the Emergency Room or call 911 IMMEDIATELY. -You may take over the counter stool softeners if needed for constipation. Aspirin -Take a full strength (325mg) aspirin every day for 4 weeks (28 days) to prevent blood clots. -If you were taking a baby aspirin (81mg) prior to surgery, you may resume taking this 81mg dose after you complete the 28-day course of the 325mg strength dose; do not take the 325mg dose in addition to your 81mg dose. -Be aware that you will bruise easier while taking Aspirin; this is normal. However, if you develop a significantly large area of swelling after an injury, or have a cut that will not stop bleeding, call the clinic or go to the Emergency Room immediately. Pending Studies at Discharge: No Stand-Alone Forms: My [facility] Medications and DC Order Prescriptions: Continued metoprolol succinate 25 mg tablet extended release 24 hr 25 mg PO PM nitroglycerin 0.4 mg Tablet, Sublingual 0.4 mg sublingual UD PRN (Reason: Chest Pain) pravastatin 10 mg Tablet 20 mg PO Q OTHER DAY Rx Instructions: TAKES IN PM. loratadine 10 mg Tablet 10 mg PO QPM PRN (Reason: seasonal allergies) cholecalciferol (vitamin D3) 1,000 unit Capsule 1,000 unit PO QPM pantoprazole 20 mg Tablet,Delayed Release (Dr/Ec) 20 mg PO QAM polyethylene glycol 3350 [Miralax] 17 gram/dose Powder 17 g PO HS Held aspirin 81 mg Capsule 81 mg PO Q2D Hold Instructions: Resume on 12/19/22. Take the prescribed 325mg dose for 4 weeks, then resume your normal 81mg dose Discharge Orders: Discharge Order (Routine); Ordered 11/22/22 Ordered By: Mike Brandt Admission Data Admit Date/Time: 11/22/22 08:00 Attending Provider: Darius Guadarrama Admit Provider: Darius Guadarrama Primary Care Provider: Shiva He Other Interventions: Discharge Summary Assessment (RN) Last Done: 11/22/22 10:09
[2022-11-22] MEDS ORDERED: PRAVASTATIN SOD 20 MG TAB PO SCH (21:00)
== END 2022-11-22 11:57 | disposition home or self-care (01) | DRG 483 ==
LOC: 3E 08:16 → ASU 08:16